=== PATIENT | female | born 1950 | race Caucasian/White ===

== ENCOUNTER → 2017-07-13 | Outpatient (CLI) | payer MEDICARE, BC ==
--- NOTE | 2017-07-15 09:44 | MM ---
Reason for exam: screening (asymptomatic). Last mammogram was performed 1 year ago. History: Patient is postmenopausal. Took progesterone for 2 years beginning at age 55. Physical Findings: A clinical breast exam by your physician is recommended on an annual basis and results should be correlated with mammographic findings. MG 3D Screening Mammo W/Cad Bilateral CC and MLO view(s) were taken. Prior study comparison: July 07, 2016, bilateral MG screening mammo w CAD. July 02, 2015, bilateral MG screening mammo w CAD. The breast tissue is heterogeneously dense. This may lower the sensitivity of mammography. No significant changes when compared with prior studies. ASSESSMENT: Negative, BI-RAD 1 RECOMMENDATION: Routine screening mammogram of both breasts in 1 year.
== END | disposition home or self-care (01) ==
LOC: RADMAMWWP 14:00
PROVIDERS: ATTEND Obstetrics & Gynecology
DX: Z12.31 Encounter for screening mammogram for malignant neoplasm of breast (principal)
CPT/HCPCS: 77063; G0202

== ENCOUNTER → 2017-08-17 | Outpatient (CLI) | payer MEDICARE, BC ==
--- NOTE | 2017-08-17 16:07 | BD ---
EXAMINATION TYPE: MG DEXA axial skeleton. DATE OF EXAM: 08/17/2017 COMPARISON: 2014 CLINICAL HISTORY: disorder of bone Height: 5'5 Weight: 155 FRAX RISK QUESTIONS: Alcohol (3 or more units per day): no Family History (Parent hip fracture): yes Glucocorticoids (More than 3mos): no (Ex: prednisone, prednisolone, methylprednisolone, dexamethasone, and hydrocortisone). History of Fracture in Adulthood: yes Secondary Osteoporosis: 1. Type 1 Diabetes: no 2. Hyperthyroidism: no 3. Menopause before 45: no 4. Malnutrition: no 5. Chronic liver disease: no Rheumatoid Arthritis: no Current Tobacco Use: no RISK FACTORS HISTORY OF: History of Wrist Fracture: left When: age 57 Surgery to Wrist (left): When: age 57 Family History of Osteoporosis: Postmenopausal woman: MEDICATIONS: Thyroid Medications: Which medication: Levothyroxine How Lon years Osteoporosis Medications: Which medication: Evista How Lon years Additional Medications: gerd, Additional History: EXAM MEASUREMENTS: Bone mineral densitometry was performed using the SLID System. Bone mineral density as measured about the Lumbar spine is: ----- L1-L4(G/cm2): 1.074 T Score Values are as follows: ----- L2: -2.1 ----- L3: 0.6 ----- L4: 0.3 ----- L1-L4:-0.9 Bone mineral density has: Increased 11.3% since study of: 07/04/2015 Bone mineral density about the R hip (g/cm2): 0.783 Bone mineral density about the L hip (g/cm2): 0.753 T Score values are as follows: -----R Neck: -1.8 -----L Neck: -2.1 -----R Total: -1.8 -----L Total: -1.7 Bone mineral density has: Decreased -1.6% since study of: 07/04/2015 IMPRESSION: Osteopenia (T Score between -2.5 and -1) as noted by T score values:L2, Kenny Hips There is slightly increased risk of fracture and the patient may be considered for treatment. Re-Screen 2-5 years. NOTE: T-SCORE=SD OF THE YOUNG ADULT MEAN.
== END | disposition home or self-care (01) ==
LOC: RADBDWWP 15:36
PROVIDERS: ATTEND Internal Medicine
DX: M85.89 Other specified disorders of bone density and structure, multiple sites (principal)
CPT/HCPCS: 77080

== ENCOUNTER 2018-06-05 19:20 | Observation (INO) | payer MEDICARE, BC ==
[2018-06-05] MEDS ORDERED: ASPIRIN 81 MG PO STA (19:45)
[2018-06-05 19:55] LABS: Basophils % (A) 1 %; Eosinophils # (A) 0.1 k/uL (0-0.7); Eosinophils % (A) 2 %; HCT 43.9 % (34.0-46.0); HGB 14.1 gm/dL (11.4-16.0); Lymphocytes # (A) 1.6 k/uL (1.0-4.8); Lymphocytes % (A) 25 %; MCH 29.3 pg (25.0-35.0); MCV 91.7 fL (80.0-100.0); Mean Platelet Volume 6.6; Monocytes # (A) 0.4 k/uL (0-1.0); Monocytes % (A) 6 %; Neutrophils % (A) 64 %; Platelet Count 247 k/uL (150-450); RBC 4.79 m/uL (3.80-5.40); RDW 13.1 % (11.5-15.5); WBC 6.3 k/uL (3.8-10.6)
[2018-06-05 20:04] LABS: Albumin 4.4 g/dL (3.5-5.0); Calcium 9.7 mg/dL (8.4-10.2); Magnesium 2.2 mg/dL (1.6-2.3); Potassium 4.4 mmol/L (3.5-5.1); Total Bilirubin 0.6 mg/dL (0.2-1.3); Total Protein 7.3 g/dL (6.3-8.2)
--- NOTE | 2018-06-05 20:04 | XR ---
EXAMINATION TYPE: XR chest 2V DATE OF EXAM: 06/05/2018 COMPARISON: 06/11/2016 HISTORY: Chest pain TECHNIQUE: Frontal and lateral views of the chest are obtained. FINDINGS: There is no heart failure nor confluent pneumonic infiltrate. There is mild pulmonary hype rinflation. There is minimal pleural thickening at the lung apices. Heart size is normal. Bony thorax is intact. IMPRESSION: No active cardiopulmonary disease. There is probably some COPD. No change.
[2018-06-05 20:06] LABS: Creatine Kinase 158 U/L (30-135)
[2018-06-05 20:19] LABS: D-Dimer 0.43 mg/L FEU (<0.60); INR 0.9 (<1.2); Partial Thromboplastin Time 25.1 sec (22.0-30.0); Prothrombin Time 9.4 sec (9.0-12.0)
[2018-06-05 20:20] LABS: Creatine Kinase MB 2.7 ng/mL (0.0-2.4); Troponin I <0.012 ng/mL (0.000-0.034)
--- NOTE | 2018-06-05 20:24 | ED ---
Chest Pain [facility] - General Chief Complaint: Chest Pain Stated Complaint: chest pain Time Seen by Provider: 06/05/18 19:31 Source: patient Mode of arrival: ambulatory Limitations: no limitations - History of Present Illness Initial Comments: This a 67-year-old female who presents with complaints of episodes of retrosternal burning chest pain started over last 2 days. He states that episodes are intermittent lasting as long as 3 minutes 6-7/10 in severity currently she is pain-free no associated nausea vomiting sweats though she has had some hot flashes. No cough or phlegm production no prior history of heart disease she is nonsmoker but was exposed to secondhand smoke for many years she states. MD Complaint: chest pain - Related Data Home Medications Medication Instructions Recorded Confirmed Ascorbic Acid [Vitamin C] 500 mg PO DAILY 06/05/18 06/05/18 Biotin 1,000mcg 1,000 mcg PO DAILY 06/05/18 06/05/18 Calcium Carbonate/Vitamin D3 1 tab PO DAILY 06/05/18 06/05/18 [Calcium 600-Vit D3 200 Tablet] Cholecalciferol [Vitamin D3] 800 unit PO DAILY 06/05/18 06/05/18 Cyanocobalamin (Vitamin B-12) 1,000 mcg PO DAILY 06/05/18 06/05/18 [Vitamin B-12] Cyclobenzaprine [Flexeril] 2.5 mg PO HS 06/05/18 06/05/18 Glucosamine 1500mg 1,500 mg PO DAILY 06/05/18 06/05/18 Levothyroxine Sodium [Synthroid] 125 mcg PO HS 06/05/18 06/05/18 Magnesium Gluconate [Magonate] 500 mg PO DAILY 06/05/18 06/05/18 [facility]-3 Fatty Acids/Fish Oil [Fish 1 cap PO DAILY 06/05/18 06/05/18 Oil 1,000 mg Softgel] Raloxifene [Evista] 60 mg PO DAILY 06/05/18 06/05/18 Ranitidine HCl [Zantac] 300 mg PO BID 06/05/18 06/05/18 Vitamin B Complex 1 cap PO DAILY 06/05/18 06/05/18 metroNIDAZOLE 0.75% CREAM 1 applic TOPICAL BID 06/05/18 06/05/18 [Metrocream] Allergies Allergy/AdvReac Type Severity Reaction Status Date / Time ceftriaxone [From Rocephin] Allergy Rash/Hives Verified 06/05/18 19:45 cephalexin [From Keflex] Allergy Rash/Hives Verified 06/05/18 19:45 levofloxacin Allergy Rash/Hives Verified 06/05/18 19:45 Sulfa (Sulfonamide Allergy Rash/Hives Verified 06/05/18 19:45 Antibiotics) Review of Systems ROS Statement: Those systems with pertinent positive or pertinent negative responses have been documented in the HPI. ROS Other: All systems not noted in ROS Statement are negative. EKG Findings - EKG Results: EKG: interpreted by MYLES CONRAD, sinus rhythm, normal axis, normal QRS, normal ST/ T, no acute changes (Normal sinus rhythm a 68. Interval 126 QRS duration 82 QT since QTC 386/410 this is a normal-appearing EKG) Past Medical History Past Medical History: GERD/Reflux, Thyroid Disorder Additional Past Medical History / Comment(s): Chrons History of Any Multi-Drug Resistant Organisms: None Reported Past Surgical History: Tonsillectomy Additional Past Surgical History / Comment(s): illiestomy, wrist surgery Past Psychological History: No Psychological Hx Reported Smoking Status: Never smoker Past Alcohol Use History: None Reported Past Drug Use History: None Reported General Exam - General Exam Comments Initial Comments: This is a well-developed well-nourished awake alert oriented 3 female Limitations: no limitations General appearance: alert, in no apparent distress Head exam: Present: atraumatic, normocephalic, normal inspection Eye exam: Present: normal appearance, PERRL, EOMI. Absent: scleral icterus, conjunctival injection, periorbital swelling ENT exam: Present: normal exam, mucous membranes moist Neck exam: Present: normal inspection. Absent: tenderness, meningismus, lymphadenopathy Respiratory exam: Present: normal lung sounds bilaterally. Absent: respiratory distress, wheezes, rales, rhonchi, stridor Cardiovascular Exam: Present: regular rate, normal rhythm, normal heart sounds. Absent: systolic murmur, diastolic murmur, rubs, gallop, clicks GI/Abdominal exam: Present: soft, normal bowel sounds. Absent: distended, tenderness, guarding, rebound, rigid Extremities exam: Present: normal inspection, full ROM, normal capillary refill. Absent: tenderness, pedal edema, joint swelling, calf tenderness Back exam: Present: normal inspection Neurological exam: Present: alert, oriented X3, CN II-XII intact Psychiatric exam: Present: normal affect, normal mood Skin exam: Present: warm, dry, intact, normal color. Absent: rash Course Vital Signs 06/05/18 06/05/18 19:27 20:13 Temperature 99 F Pulse Rate 70 71 Respiratory 18 18 Rate Blood Pressure 184/84 148/70 O2 Sat by Pulse 97 98 Oximetry - Reevaluation(s) Reevaluation #1: 06/05/18 22:11 Lesions had no further chest pain but on further questioning she states is actually going on for about a week she's had at least 10 episodes. Chest Pain MDM - MDM I did discuss findings with the patient and her family. Also with Dr. Gonzalez. The patient will be admitted for evaluation by cardiology. Presentation is consistent with new onset angina Critical Care Time Critical Care Time: Yes Critical Care Time: 31 minutes of critical care time which includes initial presentation with history physical labs x-rays reevaluation the patient discussed with the admitting physician admission orders. Documentation the above Disposition Clinical Impression: Unstable angina pectoris, Chest pain Disposition: ADMITTED IP TO [facility] Condition: Stable Referrals: Nena Gonzalez MD [Primary Care Provider] - 1-2 days
[2018-06-05] MEDS ORDERED: NITROGLYCERIN SL TABS 0.4 MG TAB SUBLINGUAL PRN (22:13)
[2018-06-05] MEDS ORDERED: HEPARIN SODIUM,PORCINE 5,000 UNIT/ML 1 ML VIAL IV ONE (22:13)
[2018-06-05] MEDS ORDERED: HEPARIN SOD,PORK IN 0.45% NACL 25,000 UNIT in 0.45% NACL 1 500ML.BAG IV SCH (22:15)
[2018-06-06] MEDS: NITROGLYCERIN OINT 1 INCH/GM PACKET TOPICAL SCH ×2 (00:45→07:31)
[2018-06-06 01:59] VITALS: BMI 25.6
[2018-06-06 02:01] VITALS: RESP 16
[2018-06-06 04:35] LABS: Creatine Kinase 115 U/L (30-135)
[2018-06-06 04:48] LABS: Creatine Kinase MB 2.4 ng/mL (0.0-2.4); Troponin I <0.012 ng/mL (0.000-0.034)
[2018-06-06] MEDS ORDERED: ACETAMINOPHEN TAB 325 MG TAB PO PRN (07:32)
[2018-06-06 08:25] LABS: Cholesterol 155 mg/dL (<200); HDL Cholesterol 70 mg/dL (40-60); LDL Cholesterol,Calculated 74 mg/dL (0-99); Triglycerides 55 mg/dL (<150)
[2018-06-06 08:28] LABS: Creatine Kinase 96 U/L (30-135)
[2018-06-06 08:42] LABS: Creatine Kinase MB 1.9 ng/mL (0.0-2.4); Troponin I <0.012 ng/mL (0.000-0.034)
[2018-06-06] MEDS ORDERED: CHOLECALCIFEROL 400 UNIT TAB PO SCH (09:00)
[2018-06-06] MEDS ORDERED: NON-FORMULARY DRUG (Omega-3 Fatty Acids/Fish Oil [Fish Oil 1,000 Mg Softgel] 1 CAP) PO SCH (09:00)
[2018-06-06] MEDS ORDERED: BIOTIN 1000 MCG PO SCH (09:00)
[2018-06-06] MEDS ORDERED: NON-FORMULARY DRUG (Cyanocobalamin (Vitamin B-12) [Vitamin B-12] 1,000 MCG) PO SCH (09:00)
[2018-06-06] MEDS ORDERED: MAGNESIUM OXIDE 400 MG TAB PO SCH (09:00)
[2018-06-06] MEDS ORDERED: ASCORBIC ACID 500 MG TAB PO SCH (09:00)
[2018-06-06] MEDS ORDERED: NON-FORMULARY DRUG (Calcium Carbonate/Vitamin D3 [Calcium 600-Vit D3 200 Tablet] 1 TAB) PO SCH (09:00)
[2018-06-06] MEDS ORDERED: ATORVASTATIN 80 MG TAB PO SCH (09:00)
[2018-06-06] MEDS ORDERED: GLUCOSAMINE 1500 MG PO SCH (09:00)
[2018-06-06] MEDS ORDERED: NON-FORMULARY DRUG (Vitamin B Complex [Vitamin B Complex] 1 CAP) PO SCH (09:00)
[2018-06-06] MEDS ORDERED: ASPIRIN 325 MG TAB PO SCH (09:00)
[2018-06-06] MEDS ORDERED: RALOXIFENE 60 MG TAB PO SCH (09:00)
[2018-06-06] MEDS ORDERED: FAMOTIDINE 20 MG TAB PO SCH (09:00)
[2018-06-06 09:41] LABS: Basophils % (A) 1 %; Eosinophils # (A) 0.2 k/uL (0-0.7); Eosinophils % (A) 3 %; HCT 40.1 % (34.0-46.0); HGB 12.8 gm/dL (11.4-16.0); Lymphocytes # (A) 1.2 k/uL (1.0-4.8); Lymphocytes % (A) 23 %; MCH 29.4 pg (25.0-35.0); Mean Platelet Volume 6.6; Monocytes # (A) 0.4 k/uL (0-1.0); Monocytes % (A) 8 %; Neutrophils # (A) 3.3 k/uL (1.3-7.7); Neutrophils % (A) 62 %; Platelet Count 220 k/uL (150-450); RBC 4.36 m/uL (3.80-5.40); WBC 5.3 k/uL (3.8-10.6)
--- NOTE | 2018-06-06 10:17 | P.HPIM ---
History of Present Illness H&P Date: 06/06/18 Chief Complaint: chest pain This is a 67-year-old female patient presents to the emergency room complaints of chest pain that has been going on for approximately 1 week per patient. Patient states that the pain is intermittent and will last about 3-6 minutes. Patient denies shortness of breath or radiation of pain to neck jaw or shoulder. Patient denies nausea or vomiting with pain. Patient does state she has significant family history of cardiac events including biological sister requiring open heart surgery in her 50s and another sibling with a history of a heart attack. Patient herself has a past medical history of GERD, thyroid disorder and Crohn's. Chest x-ray completed showing no active cardiopulmonary disease. There is probably some COPD. No change. EEG completed showing normal sinus rhythm. Normal EKG. Troponin levels have been negative. D-dimer 0.043. Cardiology services have been consulted. 2-D echo and stress echocardiogram has been ordered. At this time patient denies chest pain or shortness breath. Denies nausea vomiting or diarrhea. Denies any urinary burning or frequency. Review of Systems Please refer to HPI otherwise unremarkable Past Medical History Past Medical History: GERD/Reflux, Thyroid Disorder Additional Past Medical History / Comment(s): Chrons History of Any Multi-Drug Resistant Organisms: None Reported Past Surgical History: Tonsillectomy Additional Past Surgical History / Comment(s): illiestomy, wrist surgery Past Psychological History: No Psychological Hx Reported Smoking Status: Never smoker Past Alcohol Use History: None Reported Past Drug Use History: None Reported Medications and Allergies Home Medications Medication Instructions Recorded Confirmed Type Ascorbic Acid [Vitamin C] 500 mg PO DAILY 06/05/18 06/05/18 History Biotin 1,000mcg 1,000 mcg PO DAILY 06/05/18 06/05/18 History Calcium Carbonate/Vitamin D3 1 tab PO DAILY 06/05/18 06/05/18 History [Calcium 600-Vit D3 200 Tablet] Cholecalciferol [Vitamin D3] 800 unit PO DAILY 06/05/18 06/05/18 History Cyanocobalamin (Vitamin B-12) 1,000 mcg PO DAILY 06/05/18 06/05/18 History [Vitamin B-12] Cyclobenzaprine [Flexeril] 2.5 mg PO HS 06/05/18 06/05/18 History Glucosamine 1500mg 1,500 mg PO DAILY 06/05/18 06/05/18 History Levothyroxine Sodium [Synthroid] 125 mcg PO HS 06/05/18 06/05/18 History Magnesium Gluconate [Magonate] 500 mg PO DAILY 06/05/18 06/05/18 History [place]-3 Fatty Acids/Fish Oil [Fish 1 cap PO DAILY 06/05/18 06/05/18 History Oil 1,000 mg Softgel] Raloxifene [Evista] 60 mg PO DAILY 06/05/18 06/05/18 History Ranitidine HCl [Zantac] 300 mg PO BID 06/05/18 06/05/18 History Vitamin B Complex 1 cap PO DAILY 06/05/18 06/05/18 History metroNIDAZOLE 0.75% CREAM 1 applic TOPICAL BID 06/05/18 06/05/18 History [Metrocream] Allergies Allergy/AdvReac Type Severity Reaction Status Date / Time ceftriaxone [From Rocephin] Allergy Rash/Hives Verified 06/05/18 19:45 cephalexin [From Keflex] Allergy Rash/Hives Verified 06/05/18 19:45 levofloxacin Allergy Rash/Hives Verified 06/05/18 19:45 Sulfa (Sulfonamide Allergy Rash/Hives Verified 06/05/18 19:45 Antibiotics) Physical Exam Vitals: Vital Signs Temp Pulse Pulse Resp BP BP BP 06/06/18 08:00 97.7 F 60 16 94/53 06/06/18 04:36 16 06/06/18 04:08 98.1 F 63 16 114/63 06/06/18 01:59 98.1 F 69 16 163/94 06/06/18 00:47 97.8 F 62 18 141/72 06/05/18 23:53 72 18 149/81 06/05/18 22:13 98.5 F 73 16 157/82 06/05/18 20:13 71 18 148/70 06/05/18 19:27 99 F 70 18 184/84 Pulse Ox 06/06/18 08:00 93 L 06/06/18 04:36 06/06/18 04:08 94 L 06/06/18 01:59 100 06/06/18 00:47 95 06/05/18 23:53 97 06/05/18 22:13 95 06/05/18 20:13 98 06/05/18 19:27 97 Intake and Output 06/05/18 06/06/18 06/06/18 22:59 06:59 14:59 Other: Voiding Method Toilet Weight 69.853 kg 71.4 kg Head normocephalic Neck supple Lungs clear to auscultation bilaterally no wheezing or crackles Heart regular rate and rhythm S1-S2, no rub or gallop Abdomen is soft nontender nondistended positive bowel sounds no hepatosplenomegaly Extremities no edema Neuro alert and orientated to 3 Results CBC & Chem 7: 06/06/18 09:21 06/05/18 19:40 Labs: Abnormal Lab Results - Last 24 Hours (Table) 06/05/18 06/05/18 06/06/18 Range/Units 19:40 19:40 03:32 APTT 55.6 H (22.0-30.0) sec BUN 29 H (7-17) mg/dL Creatinine 1.07 H (0.52-1.04) mg/dL Total Creatine Kinase 158 H (30-135) U/L CK-MB (CK-2) 2.7 H (0.0-2.4) ng/mL HDL Cholesterol (40-60) mg/dL 06/06/18 Range/Units 07:29 APTT (22.0-30.0) sec BUN (7-17) mg/dL Creatinine (0.52-1.04) mg/dL Total Creatine Kinase (30-135) U/L CK-MB (CK-2) (0.0-2.4) ng/mL HDL Cholesterol 70 H (40-60) mg/dL Thrombosis Risk Factor Assmnt - Choose All That Apply Each Risk Factor Represents 2 Points: Age 61-74 years Thrombosis Risk Factor Assessment Total Risk Factor Score: 2 Thrombosis Risk Factor Assessment Level: Low Risk Assessment and Plan Assessment: 1. Chest pain. Troponin levels have been negative. EKG showing normal sinus rhythm. D-dimer 0.43. Chest x-ray completed showing no active cardiopulmonary disease. There is probably some COPD. No change. Cardiology services consulted. 2-D echo and stress echocardiogram has been ordered. 2. History of GERD 3. History of hypothyroidism. Continue Synthroid 4. History of Crohn's. DVT prophylaxis Pepcid Time with Patient: Greater than 30 (Greater than 60% of the total time spent in counseling and coordination of care. I performed an examination of the patient and discussed their management with the Nurse Practitioner. I have reviewed the Nurse Practitioner's notes and agree with the documented findings and plan of care)
[2018-06-06 10:29] LABS: ALT 30 U/L (9-52); AST 28 U/L (14-36); Albumin 3.6 g/dL (3.5-5.0); Alkaline Phosphatase 65 U/L (38-126); Anion Gap 6 mmol/L; Blood Urea Nitrogen 20 mg/dL (7-17); Calcium 9.1 mg/dL (8.4-10.2); Carbon Dioxide 26 mmol/L (22-30); Chloride 106 mmol/L (98-107); Glucose 88 mg/dL (74-99); Potassium 4.4 mmol/L (3.5-5.1); Sodium 138 mmol/L (137-145); Total Bilirubin 1.3 mg/dL (0.2-1.3); Total Protein 6.1 g/dL (6.3-8.2)
--- NOTE | 2018-06-06 11:24 | ECHOF ---
Referral Reason:cp MEASUREMENTS -------- HEIGHT: 165.1 cm WEIGHT: 71.2 kg BP: IVSd: 0.9 cm (0.6 - 1.1) LVIDd: 3.5 cm (3.9 - 5.3) LVPWd: 1.1 cm (0.6 - 1.1) IVSs: 1.2 cm LVIDs: 2.7 cm LVPWs: 1.0 cm LAESV Index (A-L): 17.73 ml/m Ao Diam: 2.9 cm (2.0 - 3.7) AV Cusp: 1.6 cm (1.5 - 2.6) LA Diam: 3.0 cm (2.7 - 3.8) MV EXCURSION: 14.924 mm (> 18.000) MV EF SLOPE: 111 mm/s (70 - 150) EPSS: 0.9 cm MV E Anant: 0.69 m/s MV DecT: 248 ms MV A Anant: 0.71 m/s MV E/A Ratio: 0.96 RAP: 5.00 mmHg RVSP: 21.33 mmHg FINDINGS -------- Sinus rhythm. This was a technically good study. LV size, wall thickness and systolic function are normal, with an EF greater than 55%. The left rafita tricular size is normal. The right ventricle is normal in size. The left atrial size is normal. The right atrial size is normal. The aortic valve is trileaflet, and appears structurally normal. No aortic stenosis or regurgitation. Mild mitral regurgitation is present. Mild tricuspid regurgitation present. There is no evidence of pulmonary hypertension. The right v entricular systolic pressure, as measured by Doppler, is 21.33mmHg. There is no pulmonic regurgitation present. The aortic root size is normal. There is no pericardial effusion. CONCLUSIONS -------- 1. LV size, wall thickness and systolic function are normal, with an EF greater than 55%. 2. The left ventricular size is normal. 3. The right ventricle is normal in size. 4. The left atrial size is normal. 5. The right atrial size is normal. 6. The aortic valve is trileaflet, and appears structurally normal. No aortic stenosis or regurgitati on. 7. Mild mitral regurgitation is present. 8. Mild tricuspid regurgitation present. 9. There is no evidence of pulmonary hypertension. 10. The right ventricular systolic pressure, as measured by Doppler, is 21.33mmHg. 11. There is no pulmonic regurgitation present. 12. The aortic root size is normal. 13. There is no pericardial effusion. SENIOR BENEFITS MANAGER: Yoselyn Gan RDCS
[2018-06-06 12:11] VITALS: BP 120/76; PULSE 64; TEMP 98.4
--- NOTE | 2018-06-06 12:12 | P.CRDCN ---
History of Present Illness History of present illness: Mrs. Eisenberg is a pleasant 67-year-old female past medical history significant for gastroesophageal reflux disease and hypothyroid. She denies history of coronary artery disease, hypertension or dyslipidemia. We have been asked to see her in consultation for chest pain. She states she has been having a burning sensation in mid-sternal region with radiation through to the back associated with mild shortness of breath and feeling light headed at times. These symptoms have been intermittent for the last week with no specific aggravating or alleviating factors. She has been taking Tums with no relief. She denies palpitations, nausea, vomiting, diaphoresis, cough, PND or orhopnea. EKG reveals sinus mechanism with no acute ST or T-wave abnormalities. Telemetry tracings have been unremarkable. Chest xray is negative for an acute cardiopulmonary process. Laboratory data reviewed, hemoglobin 12.8, platelets 220, d-dimer 0.43, sodium 138, potassium 4.4, magnesium 2.2, creatinine 0.75, cardiac enzymes negative 3 , LDL 74 and HDL 70. She takes no daily cardiac medications. There is no old diagnostic data to review. Review of Systems At the time of my exam: CONSTITUTIONAL: Denies fever. Denies chills. EYES: Denies blurred vision. Denies vision changes. Denies eye pain. EARS, NOSE, MOUTH & THROAT: Denies headache. Denies sore throat. Denies ear pain. CARDIOVASCULAR: Denies chest pain. Denies shortness of breath. Denies orthopnea. Denies PND. Denies palpitations. RESPIRATORY: Denies cough. GASTROINTESTINAL: Denies abdominal pain. Denies diarrhea. Denies constipation. Denies nausea. Denies vomiting. MUSCULOSKELETAL: Denies myalgias. INTEGUMENTARY: Denies pruitis. Denies rash. NEUROLOGIC: Denies numbness. Denies tingling. Denies weakness. PSYCHIATRIC: Denies anxiety. Denies depression. ENDOCRINE: Denies fatigue. Denies weight change. Denies polydipsia. Denies polyurina. GENITOURINARY: Denies burning, hematuria or urgency with micturation. HEMATOLOGIC: Denies history of anemia. Denies bleeding. Past Medical History Past Medical History: GERD/Reflux, Thyroid Disorder Additional Past Medical History / Comment(s): Chrons History of Any Multi-Drug Resistant Organisms: None Reported Past Surgical History: Tonsillectomy Additional Past Surgical History / Comment(s): illiestomy, wrist surgery Past Psychological History: No Psychological Hx Reported Smoking Status: Never smoker Past Alcohol Use History: None Reported Past Drug Use History: None Reported Medications and Allergies Home Medications Medication Instructions Recorded Confirmed Type Ascorbic Acid [Vitamin C] 500 mg PO DAILY 06/05/18 06/05/18 History Biotin 1,000mcg 1,000 mcg PO DAILY 06/05/18 06/05/18 History Calcium Carbonate/Vitamin D3 1 tab PO DAILY 06/05/18 06/05/18 History [Calcium 600-Vit D3 200 Tablet] Cholecalciferol [Vitamin D3] 800 unit PO DAILY 06/05/18 06/05/18 History Cyanocobalamin (Vitamin B-12) 1,000 mcg PO DAILY 06/05/18 06/05/18 History [Vitamin B-12] Cyclobenzaprine [Flexeril] 2.5 mg PO HS 06/05/18 06/05/18 History Glucosamine 1500mg 1,500 mg PO DAILY 06/05/18 06/05/18 History Levothyroxine Sodium [Synthroid] 125 mcg PO HS 06/05/18 06/05/18 History Magnesium Gluconate [Magonate] 500 mg PO DAILY 06/05/18 06/05/18 History [place]-3 Fatty Acids/Fish Oil [Fish 1 cap PO DAILY 06/05/18 06/05/18 History Oil 1,000 mg Softgel] Raloxifene [Evista] 60 mg PO DAILY 06/05/18 06/05/18 History Ranitidine HCl [Zantac] 300 mg PO BID 06/05/18 06/05/18 History Vitamin B Complex 1 cap PO DAILY 06/05/18 06/05/18 History metroNIDAZOLE 0.75% CREAM 1 applic TOPICAL BID 06/05/18 06/05/18 History [Metrocream] Allergies Allergy/AdvReac Type Severity Reaction Status Date / Time ceftriaxone [From Rocephin] Allergy Rash/Hives Verified 06/05/18 19:45 cephalexin [From Keflex] Allergy Rash/Hives Verified 06/05/18 19:45 levofloxacin Allergy Rash/Hives Verified 06/05/18 19:45 Sulfa (Sulfonamide Allergy Rash/Hives Verified 06/05/18 19:45 Antibiotics) Physical Exam Vitals: Vital Signs Temp Pulse Pulse Resp BP BP BP 06/06/18 08:00 97.7 F 60 16 94/53 06/06/18 04:36 16 06/06/18 04:08 98.1 F 63 16 114/63 06/06/18 01:59 98.1 F 69 16 163/94 06/06/18 00:47 97.8 F 62 18 141/72 06/05/18 23:53 72 18 149/81 06/05/18 22:13 98.5 F 73 16 157/82 06/05/18 20:13 71 18 148/70 06/05/18 19:27 99 F 70 18 184/84 Pulse Ox 06/06/18 08:00 93 L 06/06/18 04:36 06/06/18 04:08 94 L 06/06/18 01:59 100 06/06/18 00:47 95 06/05/18 23:53 97 06/05/18 22:13 95 06/05/18 20:13 98 06/05/18 19:27 97 Intake and Output 06/05/18 06/06/18 06/06/18 22:59 06:59 14:59 Other: Voiding Method Toilet Weight 69.853 kg 71.4 kg Blood pressure 94/53 heart rate 68 afebrile maintaining oxygen saturation on room air GENERAL: This is a 67-year-old female in no apparent distress at the time of my examination. HEENT: Head is atraumatic, normocephalic. Pupils are equal, round. Sclerae anicteric. Conjunctivae are clear. Mucous membranes of the mouth are moist. Neck is supple. There is no jugular venous distention. No carotid bruit is heard. LUNGS: Clear to auscultation no wheezes, rales or rhonchi. No chest wall tenderness is noted on palpation or with deep breathing. HEART: Regular rate and rhythm without murmurs, rubs or gallops. S1 and S2 heard. ABDOMEN: Soft, nontender. Bowel sounds are heard. No organomegaly noted. EXTREMITIES: No evidence of peripheral edema and no calf tenderness noted. VASCULAR: Radial and dorsalis pedis pulses palpated, no evidence of clubbing. NEUROLOGIC: Patient is awake, alert and oriented x3. Results 06/06/18 09:21 06/06/18 09:21 Cardiac Enzymes 06/05/18 06/05/18 06/06/18 Range/Units 19:40 19:40 03:32 AST 28 (14-36) U/L CK-MB (CK-2) 2.7 H 2.4 (0.0-2.4) ng/mL Troponin I <0.012 <0.012 (0.000-0.034) ng/mL 06/06/18 Range/Units 07:29 AST (14-36) U/L CK-MB (CK-2) 1.9 (0.0-2.4) ng/mL Troponin I <0.012 (0.000-0.034) ng/mL Coagulation 06/05/18 06/06/18 Range/Units 19:40 03:32 PT 9.4 (9.0-12.0) sec APTT 25.1 55.6 H (22.0-30.0) sec Lipids 06/06/18 Range/Units 07:29 Triglycerides 55 (<150) mg/dL Cholesterol 155 (<200) mg/dL HDL Cholesterol 70 H (40-60) mg/dL CBC 06/05/18 Range/Units 19:40 WBC 6.3 (3.8-10.6) k/uL RBC 4.79 (3.80-5.40) m/uL Hgb 14.1 (11.4-16.0) gm/dL Hct 43.9 (34.0-46.0) % Plt Count 247 (150-450) k/uL Comprehensive Metabolic Panel 06/05/18 Range/Units 19:40 Sodium 140 (137-145) mmol/L Potassium 4.4 (3.5-5.1) mmol/L Chloride 104 (98-107) mmol/L Carbon Dioxide 25 (22-30) mmol/L BUN 29 H (7-17) mg/dL Creatinine 1.07 H (0.52-1.04) mg/dL Glucose 85 (74-99) mg/dL Calcium 9.7 (8.4-10.2) mg/dL AST 28 (14-36) U/L ALT 27 (9-52) U/L Alkaline Phosphatase 90 (38-126) U/L Total Protein 7.3 (6.3-8.2) g/dL Albumin 4.4 (3.5-5.0) g/dL Current Medications Generic Name Dose Route Start Last Admin Trade Name Freq PRN Reason Stop Dose Admin Acetaminophen 650 mg 06/06/18 07:32 06/06/18 07:43 Tylenol Tab PO 650 mg Q6HR PRN Administration Fever and/ or Pain Ascorbic Acid 500 mg 06/06/18 09:00 Vitamin C PO DAILY MAURISIO Aspirin 325 mg 06/06/18 09:00 Aspirin PO DAILY [facility] Cholecalciferol 800 unit 06/06/18 09:00 Vitamin D3 PO DAILY MAURISIO Famotidine 40 mg 06/06/18 09:00 Pepcid PO BID MAURISIO Levothyroxine Sodium 125 mcg 06/06/18 21:00 Synthroid PO HS [facility]ISIO Magnesium Oxide 400 mg 06/06/18 09:00 Mag-Ox PO DAILY [facility] Metronidazole 1 applic 06/06/18 09:00 Metrocream TOPICAL BID MAURISIO Nitroglycerin 0.4 mg 06/05/18 22:13 Nitrostat SUBLINGUAL Q5M PRN Chest Pain Raloxifene HCl 60 mg 06/06/18 09:00 Evista PO DAILY [facility] Intake and Output 06/05/18 06/06/18 06/06/18 22:59 06:59 14:59 Other: Voiding Method Toilet Weight 69.853 kg 71.4 kg 06/05/18 19:40 06/05/18 19:40 Assessment and Plan Assessment: ASSESSMENT Chest pain, atypical. An acute coronary event has been ruled out with no EKG evidence of ischemia and negative cardiac enzymes. Hypothyroid Family history of premature cardiac disease PLAN An acute coronary event has been ruled out, discontinue heparin infusion. Obtain 2D echocardiogram and doppler study to assess cardiac structure and function. Perform exercise stress echocardiogram to assess for stress induced ischemic changes. If stress test is normal she is stable from a cardiac perspective. Follow up with Dr. Enriquez in 2-3 weeks. Thank you kindly for this consultation. Nurse Practitioner note has been reviewed, I agree with a documented findings and plan of care. Patient was seen and examined.
--- NOTE | 2018-06-06 14:06 | P.DS ---
Providers Date of admission: 06/05/18 22:12 Expected date of discharge: 06/06/18 Attending physician: Nena Gonzalez Consults: 06/05/18 22:17 Consult Physician Urgent Consulting Provider: Ascencion Enriquez Consult Reason/Comments: Chest pain Do you want consulting provider notified?: Yes Primary care physician: Nena Lisa [facility] Course: Discharge diagnosis 1. Chest pain. Troponin levels have been negative. EKG showing normal sinus rhythm. D-dimer 0.43. Chest x-ray completed showing no active cardiopulmonary disease. There is probably some COPD. No change. Cardiology services consulted. 2-D echo and stress echocardiogram has been ordered. 2-D echo completed showing an EF greater than 55%. Discussed case with cardiology EQUIPMENT WORKER. Patient has been cleared for discharge. Per cardiology stress test was normal. No change to medication 2. History of GERD 3. History of hypothyroidism. Continue Synthroid 4. History of Crohn's. Hospital Course This is a 67-year-old female patient presents to the emergency room complaints of chest pain that has been going on for approximately 1 week per patient. Patient states that the pain is intermittent and will last about 3-6 minutes. Patient denies shortness of breath or radiation of pain to neck jaw or shoulder. Patient denies nausea or vomiting with pain. Patient does state she has significant family history of cardiac events including biological sister requiring open heart surgery in her 50s and another sibling with a history of a heart attack. Patient herself has a past medical history of GERD, thyroid disorder and Crohn's. Chest x-ray completed showing no active cardiopulmonary disease. There is probably some COPD. No change. EEG completed showing normal sinus rhythm. Normal EKG. Troponin levels have been negative. D-dimer 0.043. Cardiology services have been consulted. 2-D echo and stress echocardiogram has been ordered. At this time patient denies chest pain or shortness breath. Denies nausea vomiting or diarrhea. Denies any urinary burning or frequency. On 06/06/2018 patient is alert and oriented 3. Stress test and 2-D echo completed discussed case with cardiology EQUIPMENT WORKER. Patient has been cleared for discharge. Patient to follow-up with primary care provider outpatient. Patient will be started on Protonix 40 mg daily. At this time patient denies chest pain or shortness breath. Denies nausea vomiting or diarrhea. I performed an examination of the patient and discussed their management with the Nurse Practitioner. I have reviewed the Nurse Practitioner's notes and agree with the documented findings and plan of care Patient Condition at Discharge: Stable Plan - Discharge Summary New Discharge Prescriptions: Continue [place]-3 Fatty Acids/Fish Oil [Fish Oil 1,000 mg Softgel] 1 cap PO DAILY Cholecalciferol [Vitamin D3] 800 unit PO DAILY Ascorbic Acid [Vitamin C] 500 mg PO DAILY Magnesium Gluconate [Magonate] 500 mg PO DAILY Cyanocobalamin (Vitamin B-12) [Vitamin B-12] 1,000 mcg PO DAILY Biotin 1,000mcg 1,000 mcg PO DAILY Vitamin B Complex 1 cap PO DAILY Glucosamine 1500mg 1,500 mg PO DAILY metroNIDAZOLE 0.75% CREAM [Metrocream] 1 applic TOPICAL BID Ranitidine HCl [Zantac] 300 mg PO BID Levothyroxine Sodium [Synthroid] 125 mcg PO HS Cyclobenzaprine [Flexeril] 2.5 mg PO HS Raloxifene [Evista] 60 mg PO DAILY Calcium Carbonate/Vitamin D3 [Calcium 600-Vit D3 200 Tablet] 1 tab PO DAILY Discharge Medication List Ascorbic Acid [Vitamin C] 500 mg PO DAILY 06/05/18 [History] Biotin 1,000mcg 1,000 mcg PO DAILY 06/05/18 [History] Calcium Carbonate/Vitamin D3 [Calcium 600-Vit D3 200 Tablet] 1 tab PO DAILY 07/13 [History] Cholecalciferol [Vitamin D3] 800 unit PO DAILY 06/05/18 [History] Cyanocobalamin (Vitamin B-12) [Vitamin B-12] 1,000 mcg PO DAILY 06/05/18 [ History] Cyclobenzaprine [Flexeril] 2.5 mg PO HS 06/05/18 [History] Glucosamine 1500mg 1,500 mg PO DAILY 06/05/18 [History] Levothyroxine Sodium [Synthroid] 125 mcg PO HS 06/05/18 [History] Magnesium Gluconate [Magonate] 500 mg PO DAILY 06/05/18 [History] [place]-3 Fatty Acids/Fish Oil [Fish Oil 1,000 mg Softgel] 1 cap PO DAILY [History] Raloxifene [Evista] 60 mg PO DAILY 06/05/18 [History] Ranitidine HCl [Zantac] 300 mg PO BID 06/05/18 [History] Vitamin B Complex 1 cap PO DAILY 06/05/18 [History] metroNIDAZOLE 0.75% CREAM [Metrocream] 1 applic TOPICAL BID 06/05/18 [History] Follow up Appointment(s)/Referral(s): Nena Gonzalez MD [Primary Care Provider] - 1-2 days Activity/Diet/Wound Care/Special Instructions: Diet regular Activity as tolerated Discharge Disposition: HOME SELF-CARE
[2018-06-06] MEDS ORDERED: LEVOTHYROXINE 125 MCG TAB PO SCH (21:00)
--- NOTE | 2018-06-07 16:22 | ECHOS ---
STRESS ECHOCARDIOGRAM INDICATIONS: Chest pain. BASELINE HEART RATE: 90 BASELINE BLOOD PRESSURE: 143/83 MAXIMUM HEART RATE: 138 MAXIMUM BLOOD PRESSURE: 198/76 85% MPHR: 131 100% MPHR: 154 METS: 11.1 MAXIMUM STAGE REACHED: III TOTAL EXERCISE TIME: 9:46 CLINICAL INFORMATION: The patient was exercised for a total period of 10 minutes. Peak heart rate of 138 was achieved. Maximum blood pressure of 153/89 mmHg was noted. The resting EKG shows normal sinus rhythm with normal TX interval and QRS duration and normal ST-T waves. No ST- segment depression suggestive of ischemia was noted. Patient did not complain of any chest pain during the test. The baseline echocardiographic images reveals normal left ventricular chamber size with normal left ventricular systolic function. In the immediate post exercise normal increase in the wall thickness and contractility is noted. FINAL IMPRESSION: This stress echocardiographic study is negative for stress-induced ischemia. EKG portion of the stress test is not suggestive of ischemia. The patient's exercise tolerance is normal. MMODL / IJN: [id number] /
== END 2018-06-06 15:21 | disposition home or self-care (01) ==
LOC: EC 19:20 → 3OBS 22:12
PROVIDERS: ADMIT Internal Medicine; ATTEND Internal Medicine
DX: R07.89 Other chest pain (principal); R23.2 Flushing; K21.9 Gastro-esophageal reflux disease without esophagitis; E03.9 Hypothyroidism, unspecified; K50.90 Crohn's disease, unspecified, without complications; Z77.22 Contact with and (suspected) exposure to environmental tobacco smoke (acute) (chronic); Z79.890 Hormone replacement therapy; Z79.899 Other long term (current) drug therapy; Z88.1 Allergy status to other antibiotic agents; Z88.2 Allergy status to sulfonamides; Z93.2 Ileostomy status; Z82.49 Family history of ischemic heart disease and other diseases of the circulatory system
CPT/HCPCS: 96376 ×2; 96365 ×2; 96366 ×3; 99291 ×2; 93005 ×2; 36415; 93306; 93351; 85379; 83880; 80061; 80053 ×2; 82550 ×2; 82553 ×2; 83735; 84484 ×2; 85025 ×2; 85610; 85730 ×2; 71046; G0378 ×2; J1644 ×2

== ENCOUNTER → 2018-06-21 | Outpatient (CLI) | payer MEDICARE, BC ==
[2018-06-21 11:26] LABS: Blood Urea Nitrogen 19 mg/dL (7-17)
--- NOTE | 2018-06-21 13:39 | CT ---
EXAMINATION TYPE: CT abdomen pelvis w con DATE OF EXAM: 06/21/2018 COMPARISON: 11/04/2010 HISTORY: 67-year-old female Intermittent left upper quadrant pain, generalized abdominal pain TECHNIQUE: Contiguous axial scanning of the abdomen and pelvis following administration of 100 ml Iso edlmar 300 IV contrast. Delayed images through the kidneys and coronal/sagittal reconstructions perform ed. CT DLP: 634.7 mGycm Automated exposure control for dose reduction was used. FINDINGS: The heart is normal size without pericardial effusion. Lung bases clear without pleural effusion. Tiny hiatal hernia. 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 No focal liver lesion or biliary ductal dilatation. Portal venous system is patent. Adrenal glands, left kidney, spleen, and pancreas appear within normal limits. Tiny subcentimeter cortical based hypodensity anterior right kidney, axial image 21, too small for ac curate CT characterization, likely tiny cyst and was seen previously in 2010. Patient is status post colectomy with right lower quadrant ileostomy. Some surgical material is prese nt in the mesentery in the midabdomen and a dropped clip along the anterior hepatic dome incidentally noted. No mesenteric or retroperitoneal lymphadenopathy seen. Tiny fatty umbilical hernia. Bladder nondistended. Multiple surgical clips also seen within the pelvis. Soft tissue breast along t he posterior aspect of the lower pelvis suspected to represent the uterus. A 2.0 cm cystic lesion jus t adjacent on the right likely of ovarian etiology, not clearly seen previously. No abnormal fluid co llection in the pelvis or pelvic lymphadenopathy. Bones: Mild degenerative changes at the hips. Advanced degenerative disc disease L3-L4 and L4-L5 and moderate at L5-S1. Grade 1 retrolisthesis at L3-L4. Moderate to severe left neuroforaminal stenosis a t L5-S1. IMPRESSION: 1. STATUS POST COLECTOMY WITH RIGHT LOWER QUADRANT ILEOSTOMY. 2. SOFT TISSUE PRESSED AGAINST THE POSTERIOR ASPECT OF THE LOWER PELVIS SUSPECTED TO REPRESENT UTERUS . THERE IS A 2.0 CM CYSTIC LESION JUST ADJACENT ON THE RIGHT LIKELY OF OVARIAN ETIOLOGY END NOT CLEAR LY SEEN PREVIOUSLY. RECOMMEND SIX-MONTH FOLLOW-UP ULTRASOUND TO REASSESS AND FURTHER CHARACTERIZE THI S GIVEN THE PATIENT'S AGE AND POSTMENOPAUSAL STATUS. SUBSEQUENT RECOMMENDATIONS CAN BE MADE AT THAT T ROBER.
== END | disposition home or self-care (01) ==
LOC: RADCTMAIN 10:52
PROVIDERS: ATTEND Internal Medicine
DX: R93.5 Abnormal findings on diagnostic imaging of other abdominal regions, including retroperitoneum (principal); R10.84 Generalized abdominal pain; Z93.2 Ileostomy status; Z90.49 Acquired absence of other specified parts of digestive tract
CPT/HCPCS: 82565; 84520; 74177; 36415; Q9967

== ENCOUNTER → 2018-07-19 | Outpatient (CLI) | payer MEDICARE, BC | END | disposition home or self-care (01) | LOC: RADUSWWP 13:19 | PROVIDERS: ATTEND Internal Medicine | DX: Z53.9 Procedure and treatment not carried out, unspecified reason (principal) ==

== ENCOUNTER → 2018-07-19 | Outpatient (CLI) | payer MEDICARE, BC ==
--- NOTE | 2018-07-19 16:10 | US ---
EXAMINATION TYPE: US transvaginal DATE OF EXAM: 07/19/2018 COMPARISON: Previous exam 11/07/2014 CLINICAL HISTORY: R10.[address] showed already known cystic lesion in her rt adnexa, n o symptoms per patient TECHNIQUE: TV. Date of LMP: 15 yrs ago EXAM MEASUREMENTS: Uterus: 6.1 x 2.8 x 2.5 cm Endometrial Stripe: 0.6 cm Right Ovary: not seen due to atrophy and bowel gas Left Ovary: not seen due to atrophy and bowel gas 1. Uterus: Retroverted small in size 2. Endometrium: fluid seen within canal 3. Right Ovary: not seen due to atrophy and bowel gas 4. Left Ovary: not seen due to atrophy and bowel gas 5. Bilateral Adnexa: right cystic area seen 2.4 x 2.0 x 1.8cm is grown slightly in the interval 6. Posterior cul-de-sac: wnl IMPRESSION: Endometrial fluid is present. Cystic area present in the right adnexal region. Consider G YN consult.
--- NOTE | 2018-07-20 12:30 | MM ---
Reason for exam: screening (asymptomatic). Last mammogram was performed 1 year ago. History: Patient is postmenopausal. Took progesterone for 2 years beginning at age 55. Physical Findings: A clinical breast exam by your physician is recommended on an annual basis and results should be correlated with mammographic findings. MG 3D Screening Mammo W/Cad Bilateral CC and MLO view(s) were taken. Prior study comparison: July 13, 2017, bilateral MG 3d screening mammo w/cad. July 07, 2016, bilateral MG screening mammo w CAD. The breast tissue is heterogeneously dense. This may lower the sensitivity of mammography. No suspicious abnormality. No significant changes when compared with prior studies. ASSESSMENT: Negative, BI-RAD 1 RECOMMENDATION: Routine screening mammogram of both breasts in 1 year.
== END ==
LOC: RADMAMWWP 12:57
PROVIDERS: ATTEND Family Medicine
DX: Z12.31 Encounter for screening mammogram for malignant neoplasm of breast (principal); N83.201 Unspecified ovarian cyst, right side
CPT/HCPCS: 76830; 77063; 77067

== ENCOUNTER 2019-01-16 22:02 | Observation (INO) | payer MEDICARE, BC ==
[2019-01-16] MEDS ORDERED: ASPIRIN 81 MG PO STA (22:33)
[2019-01-16] MEDS ORDERED: NITROGLYCERIN OINT 1 INCH/GM PACKET TOPICAL STA (22:33)
--- NOTE | 2019-01-16 22:36 | ED ---
General Adult HPI - General Chief complaint: Chest Pain Stated complaint: chest pain Time Seen by Provider: 01/16/19 22:21 Source: patient, family, RN notes reviewed Mode of arrival: wheelchair Limitations: no limitations - History of Present Illness Initial comments: Patient is a pleasant 68-year-old female presenting to the emergency Department with chest discomfort. Onset of symptoms was around 6:30. Patient had sensation of indigestion in her chest. Discomfort was 5 or 6/10. Discomfort has been waxing and waning. Patient ate and pelvis without any change of symptoms. Symptoms have started to resolve with at this time and discomfort is currently 1/10. No associated dyspnea, nausea, or diaphoresis. Patient did have similar symptoms once years ago that was associated with GERD. No leg pain or leg swelling. No radiation of symptoms. Discomfort is lower sternal region. - Related Data Home Medications Medication Instructions Recorded Confirmed Ascorbic Acid [Vitamin C] 500 mg PO DAILY 06/05/18 01/16/19 Biotin 1,000mcg 1,000 mcg PO DAILY 06/05/18 01/16/19 Calcium Carbonate/Vitamin D3 1 tab PO DAILY 06/05/18 01/16/19 [Calcium 600-Vit D3 200 Tablet] Cholecalciferol [Vitamin D3] 800 unit PO DAILY 06/05/18 01/16/19 Cyanocobalamin (Vitamin B-12) 1,000 mcg PO DAILY 06/05/18 01/16/19 [Vitamin B-12] Glucosamine 1500mg 1,500 mg PO DAILY 06/05/18 01/16/19 Levothyroxine Sodium [Synthroid] 125 mcg PO HS 06/05/18 01/16/19 Magnesium Gluconate [Magonate] 500 mg PO DAILY 06/05/18 01/16/19 [place]-3 Fatty Acids/Fish Oil [Fish 1 cap PO DAILY 06/05/18 01/16/19 Oil 1,000 mg Softgel] Raloxifene [Evista] 60 mg PO DAILY 06/05/18 01/16/19 Ranitidine HCl [Zantac] 300 mg PO BID 06/05/18 01/16/19 Vitamin B Complex 1 cap PO DAILY 06/05/18 01/16/19 metroNIDAZOLE 0.75% CREAM 1 applic TOPICAL BID 06/05/18 01/16/19 [Metrocream] Aspirin [[place] Aspirin EC] 81 mg PO DAILY 01/16/19 01/16/19 Cyclobenzaprine [Flexeril] 5 mg PO HS 01/16/19 01/16/19 Allergies Allergy/AdvReac Type Severity Reaction Status Date / Time ceftriaxone [From Rocephin] Allergy Rash/Hives Verified 06/05/18 19:45 cephalexin [From Keflex] Allergy Rash/Hives Verified 06/05/18 19:45 levofloxacin Allergy Rash/Hives Verified 06/05/18 19:45 nitrofurantoin Allergy Itching Verified 01/16/19 22:39 [From Macrobid] Sulfa (Sulfonamide Allergy Rash/Hives Verified 06/05/18 19:45 Antibiotics) Review of Systems ROS Statement: Those systems with pertinent positive or pertinent negative responses have been documented in the HPI. ROS Other: All systems not noted in ROS Statement are negative. Constitutional: Denies: fever Eyes: Denies: eye pain ENT: Denies: ear pain Respiratory: Denies: cough, dyspnea Cardiovascular: Reports: as per HPI, chest pain Endocrine: Denies: fatigue Gastrointestinal: Denies: abdominal pain Genitourinary: Denies: dysuria Musculoskeletal: Denies: back pain Skin: Denies: rash Neurological: Denies: weakness Past Medical History Past Medical History: GERD/Reflux, Thyroid Disorder Additional Past Medical History / Comment(s): Chrons History of Any Multi-Drug Resistant Organisms: None Reported Past Surgical History: Tonsillectomy Additional Past Surgical History / Comment(s): illiestomy, wrist surgery Past Psychological History: No Psychological Hx Reported Smoking Status: Never smoker Past Alcohol Use History: None Reported Past Drug Use History: None Reported General Exam Limitations: no limitations General appearance: alert, in no apparent distress Head exam: Present: normocephalic Eye exam: Present: normal appearance Neck exam: Present: normal inspection Respiratory exam: Present: normal lung sounds bilaterally. Absent: chest wall tenderness Cardiovascular Exam: Present: regular rate, normal rhythm Expanded Peripheral pulses: 2+: Radial (R), Radial (L), Dorsalis Pedis (R), Dorsalis Pedis (L) GI/Abdominal exam: Present: soft. Absent: distended, tenderness Extremities exam: Present: normal inspection. Absent: pedal edema, calf tenderness Neurological exam: Present: alert Psychiatric exam: Present: normal affect, normal mood Skin exam: Present: normal color Course Vital Signs 01/16/19 01/16/19 22:15 23:17 Temperature 97.9 F Pulse Rate 79 69 Respiratory 18 16 Rate Blood Pressure 143/83 155/63 O2 Sat by Pulse 98 97 Oximetry EKG Findings - EKG Comments: EKG Findings:: Normal sinus rhythm 72. [place] 134. QRS 78. QT 390. QTC 427. Normal axis. Normal QRS. No acute ST change. Medical Decision Making - Medical Decision Making Patient reevaluated and resting comfortably in bed. Amount of discomfort is similar. Patient and family updated on results and plan. Case was discussed in detail with Dr. Gonzalez, who will admit his patient. - Lab Data Result diagrams: 01/16/19 22:58 01/16/19 22:58 Lab Results 01/16/19 01/16/19 01/16/19 Range/Units 22:58 22:58 22:58 WBC 7.4 (3.8-10.6) k/uL RBC 4.67 (3.80-5.40) m/uL Hgb 13.8 (11.4-16.0) gm/dL Hct 41.5 (34.0-46.0) % MCV 89.0 (80.0-100.0) fL MCH 29.6 (25.0-35.0) pg MCHC 33.3 (31.0-37.0) g/dL RDW 13.2 (11.5-15.5) % Plt Count 252 (150-450) k/uL Neutrophils % 66 % Lymphocytes % 19 % Monocytes % 7 % Eosinophils % 4 % Basophils % 1 % Neutrophils # 4.9 (1.3-7.7) k/uL Lymphocytes # 1.4 (1.0-4.8) k/uL Monocytes # 0.5 (0-1.0) k/uL Eosinophils # 0.3 (0-0.7) k/uL Basophils # 0.1 (0-0.2) k/uL PT 9.4 (9.0-12.0) sec INR 0.8 (<1.2) APTT 24.4 (22.0-30.0) sec Sodium 136 L (137-145) mmol/L Potassium 5.5 H (3.5-5.1) mmol/L Chloride 103 (98-107) mmol/L Carbon Dioxide 27 (22-30) mmol/L Anion Gap 6 mmol/L BUN 18 H (7-17) mg/dL Creatinine 0.77 (0.52-1.04) mg/dL Est GFR (CKD-EPI)AfAm >90 (>60 ml/min/1.73 sqM) Est GFR (CKD-EPI)NonAf 80 (>60 ml/min/1.73 sqM) Glucose 92 (74-99) mg/dL Calcium 10.2 (8.4-10.2) mg/dL Magnesium 2.2 (1.6-2.3) mg/dL Total Bilirubin 0.8 (0.2-1.3) mg/dL AST 30 (14-36) U/L ALT 29 (9-52) U/L Alkaline Phosphatase 97 (38-126) U/L Troponin I (0.000-0.034) ng/mL Total Protein 7.3 (6.3-8.2) g/dL Albumin 4.6 (3.5-5.0) g/dL 01/16/19 Range/Units 22:58 WBC (3.8-10.6) k/uL RBC (3.80-5.40) m/uL Hgb (11.4-16.0) gm/dL Hct (34.0-46.0) % MCV (80.0-100.0) fL MCH (25.0-35.0) pg MCHC (31.0-37.0) g/dL RDW (11.5-15.5) % Plt Count (150-450) k/uL Neutrophils % % Lymphocytes % % Monocytes % % Eosinophils % % Basophils % % Neutrophils # (1.3-7.7) k/uL Lymphocytes # (1.0-4.8) k/uL Monocytes # (0-1.0) k/uL Eosinophils # (0-0.7) k/uL Basophils # (0-0.2) k/uL PT (9.0-12.0) sec INR (<1.2) APTT (22.0-30.0) sec Sodium (137-145) mmol/L Potassium (3.5-5.1) mmol/L Chloride (98-107) mmol/L Carbon Dioxide (22-30) mmol/L Anion Gap mmol/L BUN (7-17) mg/dL Creatinine (0.52-1.04) mg/dL Est GFR (CKD-EPI)AfAm (>60 ml/min/1.73 sqM) Est GFR (CKD-EPI)NonAf (>60 ml/min/1.73 sqM) Glucose (74-99) mg/dL Calcium (8.4-10.2) mg/dL Magnesium (1.6-2.3) mg/dL Total Bilirubin (0.2-1.3) mg/dL AST (14-36) U/L ALT (9-52) U/L Alkaline Phosphatase (38-126) U/L Troponin I <0.012 (0.000-0.034) ng/mL Total Protein (6.3-8.2) g/dL Albumin (3.5-5.0) g/dL - Radiology Data Radiology results: image reviewed (Chest x-ray shows no acute process) Disposition Clinical Impression: Chest pain Disposition: ADMITTED IP TO THIS [facility] Is patient prescribed a controlled substance at d/c from ED?: No Referrals: Nena Gonzalez MD [Primary Care Provider] - 1-2 days Decision Time: 00:26
[2019-01-16 23:16] LABS: Basophils # (A) 0.1 k/uL (0-0.2); Basophils % (A) 1 %; Eosinophils # (A) 0.3 k/uL (0-0.7); Eosinophils % (A) 4 %; HCT 41.5 % (34.0-46.0); HGB 13.8 gm/dL (11.4-16.0); Lymphocytes # (A) 1.4 k/uL (1.0-4.8); Lymphocytes % (A) 19 %; MCH 29.6 pg (25.0-35.0); MCHC 33.3 g/dL (31.0-37.0); Monocytes # (A) 0.5 k/uL (0-1.0); Monocytes % (A) 7 %; Neutrophils # (A) 4.9 k/uL (1.3-7.7); Neutrophils % (A) 66 %; Platelet Count 252 k/uL (150-450); RBC 4.67 m/uL (3.80-5.40); RDW 13.2 % (11.5-15.5); WBC 7.4 k/uL (3.8-10.6)
[2019-01-16 23:24] LABS: INR 0.8 (<1.2); Partial Thromboplastin Time 24.4 sec (22.0-30.0); Prothrombin Time 9.4 sec (9.0-12.0)
--- NOTE | 2019-01-16 23:29 | XR ---
EXAM: XR Chest, 2 Views CLINICAL HISTORY: ITS.REASON XR Reason: Chest Pain TECHNIQUE: Frontal and lateral views of the chest. COMPARISON: 06/05/18. FINDINGS: Lungs: Mild lower lung opacities, possible atelectasis. No consolidation. Pleural space: Unremarkable. No pneumothorax. Heart: Stable cardiomediastinal silhouette. Mediastinum: See above. Bones/joints: No acute fracture. IMPRESSION: No evidence of acute cardiopulmonary process.
[2019-01-16 23:36] LABS: ALT 29 U/L (9-52); AST 30 U/L (14-36); Albumin 4.6 g/dL (3.5-5.0); Alkaline Phosphatase 97 U/L (38-126); Anion Gap 6 mmol/L; Blood Urea Nitrogen 18 mg/dL (7-17); Calcium 10.2 mg/dL (8.4-10.2); Carbon Dioxide 27 mmol/L (22-30); Chloride 103 mmol/L (98-107); Glucose 92 mg/dL (74-99); Magnesium 2.2 mg/dL (1.6-2.3); Potassium 5.5 mmol/L (3.5-5.1); Sodium 136 mmol/L (137-145); Total Bilirubin 0.8 mg/dL (0.2-1.3); Total Protein 7.3 g/dL (6.3-8.2)
[2019-01-17] MEDS ORDERED: NITROGLYCERIN SL TABS 0.4 MG TAB SUBLINGUAL PRN (00:27)
[2019-01-17] MEDS: NITROGLYCERIN OINT 1 INCH/GM PACKET TOPICAL SCH ×2 (05:13→12:35)
[2019-01-17 08:29] LABS: ALT 29 U/L (9-52); AST 26 U/L (14-36); Alkaline Phosphatase 78 U/L (38-126); Anion Gap 8 mmol/L; Blood Urea Nitrogen 17 mg/dL (7-17); Calcium 10.1 mg/dL (8.4-10.2); Carbon Dioxide 25 mmol/L (22-30); Chloride 105 mmol/L (98-107); Glucose 94 mg/dL (74-99); Potassium 4.6 mmol/L (3.5-5.1); Sodium 138 mmol/L (137-145); Total Bilirubin 0.9 mg/dL (0.2-1.3); Total Protein 6.5 g/dL (6.3-8.2)
[2019-01-17 08:35] LABS: Basophils # (A) 0.1 k/uL (0-0.2); Basophils % (A) 1 %; Eosinophils # (A) 0.2 k/uL (0-0.7); Eosinophils % (A) 4 %; HCT 40.3 % (34.0-46.0); HGB 13.2 gm/dL (11.4-16.0); Lymphocytes # (A) 1.4 k/uL (1.0-4.8); Lymphocytes % (A) 25 %; MCH 28.8 pg (25.0-35.0); MCHC 32.7 g/dL (31.0-37.0); MCV 88.1 fL (80.0-100.0); Mean Platelet Volume 7.9; Monocytes # (A) 0.4 k/uL (0-1.0); Monocytes % (A) 8 %; Neutrophils # (A) 3.2 k/uL (1.3-7.7); Neutrophils % (A) 58 %; Platelet Count 257 k/uL (150-450); RBC 4.58 m/uL (3.80-5.40); RDW 13.9 % (11.5-15.5); WBC 5.6 k/uL (3.8-10.6)
[2019-01-17] MEDS ORDERED: FAMOTIDINE 20 MG TAB PO SCH (09:00)
[2019-01-17] MEDS ORDERED: RALOXIFENE 60 MG TAB PO SCH (09:00)
--- NOTE | 2019-01-17 09:41 | CONS ---
CONSULTATION Sarita Eisenberg is a 68-year-old lady with a known diagnosis of Crohn's disease for which she has had surgery and has an ileostomy. 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 She is not particularly active person and does not have a regular exercise program. Yesterday she was driving home from work. She developed some discomfort in the chest under her left breast, which was constant, lasted for 3 hours. Achy feeling, persisted. No diaphoresis. No clear-cut radiation. Quality of pain is very atypical. Interestingly, she had a stress echo in May, walked for over 10 minutes without ischemia. Quality of pain is atypical. There is some mild tenderness as well. Possibility of this being musculoskeletal should be considered. She is resting comfortably without symptoms. Her potassium level is high at 5.5. She takes a lot of supplements including biotin, magnesium and also some Magonate supplements and also vitamin C and other Biotene-like medications. She is asymptomatic at the time of my evaluation. PAST MEDICAL HISTORY: Remarkable for Crohn's disease and hypothyroidism. She is status post colostomy. She also had a negative stress echo in May of 2018. MEDICATIONS: At home include ascorbic acid, biotin, cholecalciferol, vitamin B12, magnesium supplements, and she takes Synthroid 125 mcg daily. ALLERGIES: She is allergic to PENICILLIN and CEPHALOSPORINS and LEVOFLOXACIN and SULFONAMIDES. She is status post partial resection of the colon and has an ileostomy. PHYSICAL EXAMINATION: Blood pressure is 120/80, pulse rate 70 per minute, regular. HEENT unremarkable. Fundus was not examined by me. Neck is supple. No JVD. I do not hear a carotid bruit. There is no thyromegaly. Heart exam reveals S1, S2 heard normally. No significant murmurs. Lungs are clear. Abdomen is soft, nontender. Lower extremities reveal palpable pulses. No edema. Central system is normal. EKG revealed a sinus mechanism with some artifact. No acute changes. LAB DATA: Reveals that her troponin levels are normal. IMPRESSION: 1. Atypical musculoskeletal chest pain. 2. Negative stress echo 6-7 months ago. 3. History of Crohn's disease status post ileostomy. RECOMMENDATIONS: I am recommending that we will increase activity. Check another potassium level. I have advised the patient to take low potassium containing foods, especially to avoid nuts, potatoes, oranges and tomato. Repeat potassium will be performed. She will observe the diet and have a repeat potassium checked as an outpatient. I discussed my thoughts in detail with the patient. No additional testing is necessary at this time and she will follow up with Dr. Gonzalez as an outpatient. EMANUEL / OBDULIA: [id number] /
--- NOTE | 2019-01-17 10:56 | P.HPIM ---
History of Present Illness H&P Date: 01/17/19 this is a 68-year-old female patient who presented to the hospital with complaints of chest pain. Patient stated the pain started yesterday while driving and lasted approximately 3 hours. Patient describes pain as more of a pressure. Patient reports that he felt she needed to burp. She denies any associated shortness of breath. Patient denies any nausea vomiting or diaphoresis occurring with pain. Patient denies any significant cardiac history herself. Patient reports that she had a stress test temperature of 2018 that was normal. Patient does report a significant family history on both her parents. Patient does have a past medical history of GERD, hypertension, hypothyroidism and Crohn's. Patient's troponins negative 2. Chest x-ray completed showing no evidence of acute cardiopulmonary process. EKG completed showing normal sinus rhythm normal EKG. Cardiology services have been consulted. At this time patient is resting quietly chair. Patient denies chest pain or shortness of breath. Patient denies nausea vomiting or diarrhea. Patient denies any urinary burning or frequency. Review of Systems Please refer to HPI otherwise unremarkable Past Medical History Past Medical History: GERD/Reflux, Hypertension, Thyroid Disorder Additional Past Medical History / Comment(s): Chrons with ileostomy- "I don't have a colon." History of Any Multi-Drug Resistant Organisms: None Reported Past Surgical History: Tonsillectomy Additional Past Surgical History / Comment(s): illiestomy, wrist surgery Past Anesthesia/Blood Transfusion Reactions: No Reported Reaction Past Psychological History: No Psychological Hx Reported Smoking Status: Never smoker Past Alcohol Use History: None Reported Past Drug Use History: None Reported Medications and Allergies Home Medications Medication Instructions Recorded Confirmed Type Ascorbic Acid [Vitamin C] 500 mg PO DAILY 06/05/18 01/16/19 History Biotin 1,000mcg 1,000 mcg PO DAILY 06/05/18 01/16/19 History Calcium Carbonate/Vitamin D3 1 tab PO DAILY 06/05/18 01/16/19 History [Calcium 600-Vit D3 200 Tablet] Cholecalciferol [Vitamin D3] 800 unit PO DAILY 06/05/18 01/16/19 History Cyanocobalamin (Vitamin B-12) 1,000 mcg PO DAILY 06/05/18 01/16/19 History [Vitamin B-12] Glucosamine 1500mg 1,500 mg PO DAILY 06/05/18 01/16/19 History Levothyroxine Sodium [Synthroid] 125 mcg PO HS 06/05/18 01/16/19 History Magnesium Gluconate [Magonate] 500 mg PO DAILY 06/05/18 01/16/19 History [place]-3 Fatty Acids/Fish Oil [Fish 1 cap PO DAILY 06/05/18 01/16/19 History Oil 1,000 mg Softgel] Raloxifene [Evista] 60 mg PO DAILY 06/05/18 01/16/19 History Ranitidine HCl [Zantac] 300 mg PO BID 06/05/18 01/16/19 History Vitamin B Complex 1 cap PO DAILY 06/05/18 01/16/19 History metroNIDAZOLE 0.75% CREAM 1 applic TOPICAL BID 06/05/18 01/16/19 History [Metrocream] Aspirin [[place] Aspirin EC] 81 mg PO DAILY 01/16/19 01/16/19 History Cyclobenzaprine [Flexeril] 5 mg PO HS 01/16/19 01/16/19 History Allergies Allergy/AdvReac Type Severity Reaction Status Date / Time ceftriaxone [From Rocephin] Allergy Rash/Hives Verified 06/05/18 19:45 cephalexin [From Keflex] Allergy Rash/Hives Verified 06/05/18 19:45 levofloxacin Allergy Rash/Hives Verified 06/05/18 19:45 nitrofurantoin Allergy Itching Verified 01/16/19 22:39 [From Macrobid] Sulfa (Sulfonamide Allergy Rash/Hives Verified 06/05/18 19:45 Antibiotics) Physical Exam Vitals: Vital Signs Temp Pulse Pulse Pulse Resp BP BP 01/17/19 08:00 98.4 F 114 H 15 01/17/19 04:49 97.9 F 72 15 120/86 01/17/19 04:09 79 16 01/17/19 03:04 79 16 01/17/19 01:12 98.2 F 64 15 147/84 01/17/19 00:47 98.2 F 72 16 130/87 01/17/19 00:40 16 01/16/19 23:17 69 16 155/63 01/16/19 22:15 97.9 F 79 18 143/83 BP Pulse Ox 01/17/19 08:00 114/63 95 01/17/19 04:49 98 01/17/19 04:09 04/24/19 03:04 01/17/19 01:12 97 01/17/19 00:47 94 L 01/17/19 00:40 01/16/19 23:17 97 01/16/19 22:15 98 Intake and Output 01/16/19 01/17/19 01/17/19 22:59 06:59 14:59 Intake Total 240 Balance 240 Intake: Oral 240 Other: Voiding Method Toilet # Voids 1 Weight 70.307 kg Head normocephalic Neck supple Lungs clear to auscultation bilaterally no wheezing or crackles Heart regular rate and rhythm S1-S2, no rub or gallop Abdomen is soft nontender nondistended positive bowel sounds no hepatosplenomegaly Extremities no edema Neuro alert and orientated to 3 Results CBC & Chem 7: 01/17/19 05:36 01/17/19 05:36 Labs: Abnormal Lab Results - Last 24 Hours (Table) 01/16/19 Range/Units 22:58 Sodium 136 L (137-145) mmol/L Potassium 5.5 H (3.5-5.1) mmol/L BUN 18 H (7-17) mg/dL Thrombosis Risk Factor Assmnt - Choose All That Apply Any of the Below Risk Factors Present?: No Other Risk Factors: Yes Each Risk Factor Represents 2 Points: Age 61-74 years Other congenital or acquired thrombophilia - If yes, enter type in comment: No Thrombosis Risk Factor Assessment Total Risk Factor Score: 2 Thrombosis Risk Factor Assessment Level: Low Risk Assessment and Plan Assessment: 1. Chest pain. Troponins negative 3. Chest x-ray completed showing no evidence of acute cardiopulmonary process. EKG completed showing normal sinus rhythm normal EKG. Chest pain has resolved. Patient was evaluated by c ardiology services. Patient had recent stress test to 7 months ago and was negative. Per cardiology avoid potassium foods. No additional testing at this time patient follow-up with PCP outpatient 2. Hyperkalemia. Potassium 5.5. Repeat 4.6. Patient educated on avoiding high potassium foods 3. History of GERD 4. History of hypothyroidism. TSH level 2.840 5. History of Crohn's Time with Patient: Greater than 30 (Greater than 60% of the total time spent in counseling and coordination of care. I performed an examination of the patient and discussed their management with the Nurse Practitioner. I have reviewed the Nurse Practitioner's notes and agree with the documented findings and plan of care)
[2019-01-17 12:19] VITALS: BP 167/96; PULSE 73; RESP 16; TEMP 98.2
[2019-01-17] MEDS ORDERED: amLODIPine 2.5 MG TAB PO SCH (13:00)
--- NOTE | 2019-01-17 13:33 | P.DS ---
Providers Date of admission: 01/17/19 00:27 Expected date of discharge: 01/17/19 Attending physician: Nena Gonzalez Consults: 01/17/19 00:27 Consult Physician Urgent Consulting Provider: Reji Crain Consult Reason/Comments: cp Do you want consulting provider notified?: Yes Primary care physician: Nena Lisa [facility] Course: Discharge diagnosis 1. Chest pain. Troponins negative 3. Chest x-ray completed showing no evidence of acute cardiopulmonary process. EKG completed showing normal sinus rhythm normal EKG. Chest pain has resolved. Patient was evaluated by cardiology services. Patient had recent stress test to 7 months ago and was negative. Per cardiology avoid potassium foods. No additional testing at this time patient follow-up with PCP outpatient 2. Hyperkalemia. Potassium 5.5. Repeat 4.6. Patient educated on avoiding high potassium foods. Repeat BMP ordered for 3 days 3. History of GERD 4. History of hypothyroidism. TSH level 2.840 5. History of Crohn's Hospital course this is a 68-year-old female patient who presented to the hospital with complaints of chest pain. Patient stated the pain started yesterday while driving and lasted approximately 3 hours. Patient describes pain as more of a pressure. Patient reports that he felt she needed to burp. She denies any associated shortness of breath. Patient denies any nausea vomiting or diaphoresis occurring with pain. Patient denies any significant cardiac history herself. Patient reports that she had a stress test temperature of 2018 that was normal. Patient does report a significant family history on both her parents. Patient does have a past medical history of GERD, hypertension, hypothyroidism and Crohn's. Patient's troponins negative 2. Chest x-ray completed showing no evidence of acute cardiopulmonary process. EKG completed showing normal sinus rhythm normal EKG. Cardiology services have been consult ed. At this time patient is resting quietly chair. Patient denies chest pain or shortness of breath. Patient denies nausea vomiting or diarrhea. Patient denies any urinary burning or frequency. Patient has been cleared for discharge from cardiology standpoint. No additional testing at this time per cardiology. Patient to follow-up with her PCP. Patient is very eager to go home at this time patient denies chest pain or shortness breath. Patient denies nausea vomiting or diarrhea. Patient denies any urinary burning or frequency. Repeat potassium 5.5. Patient did have stress echocardiogram May and was negative. I performed an examination of the patient and discussed their management with the Nurse Practitioner. I have reviewed the Nurse Practitioner's notes and agree with the documented findings and plan of care Patient Condition at Discharge: Stable Plan - Discharge Summary Discharge Rx Participant: Yes New Discharge Prescriptions: New amLODIPine [Norvasc] 2.5 mg PO DAILY 30 Days #30 tab Continue [place]-3 Fatty Acids/Fish Oil [Fish Oil 1,000 mg Softgel] 1 cap PO DAILY Cholecalciferol [Vitamin D3] 800 unit PO DAILY Ascorbic Acid [Vitamin C] 500 mg PO DAILY Magnesium Gluconate [Magonate] 500 mg PO DAILY Cyanocobalamin (Vitamin B-12) [Vitamin B-12] 1,000 mcg PO DAILY Biotin 1,000mcg 1,000 mcg PO DAILY Vitamin B Complex 1 cap PO DAILY Glucosamine 1500mg 1,500 mg PO DAILY metroNIDAZOLE 0.75% CREAM [Metrocream] 1 applic TOPICAL BID Ranitidine HCl [Zantac] 300 mg PO BID Levothyroxine Sodium [Synthroid] 125 mcg PO HS Raloxifene [Evista] 60 mg PO DAILY Calcium Carbonate/Vitamin D3 [Calcium 600-Vit D3 200 Tablet] 1 tab PO DAILY Aspirin [[place] Aspirin EC] 81 mg PO DAILY Cyclobenzaprine [Flexeril] 5 mg PO HS Discharge Medication List Ascorbic Acid [Vitamin C] 500 mg PO DAILY 06/05/18 [History] Biotin 1,000mcg 1,000 mcg PO DAILY 06/05/18 [History] Calcium Carbonate/Vitamin D3 [Calcium 600-Vit D3 200 Tablet] 1 tab PO DAILY 06/05/18 [History] Cholecalciferol [Vitamin D3] 800 unit PO DAILY 06/05/18 [History] Cyanocobalamin (Vitamin B-12) [Vitamin B-12] 1,000 mcg PO DAILY 06/05/18 [History] Glucosamine 1500mg 1,500 mg PO DAILY 06/05/18 [History] Levothyroxine Sodium [Synthroid] 125 mcg PO HS 06/05/18 [History] Magnesium Gluconate [Magonate] 500 mg PO DAILY 06/05/18 [History] [place]-3 Fatty Acids/Fish Oil [Fish Oil 1,000 mg Softgel] 1 cap PO DAILY 06/05/18 [History] Raloxifene [Evista] 60 mg PO DAILY 06/05/18 [History] Ranitidine HCl [Zantac] 300 mg PO BID 06/05/18 [History] Vitamin B Complex 1 cap PO DAILY 06/05/18 [History] metroNIDAZOLE 0.75% CREAM [Metrocream] 1 applic TOPICAL BID 06/05/18 [History] Aspirin [[place] Aspirin EC] 81 mg PO DAILY 01/16/19 [History] Cyclobenzaprine [Flexeril] 5 mg PO HS 01/16/19 [History] amLODIPine [Norvasc] 2.5 mg PO DAILY 30 Days #30 tab 01/17/19 [Rx] Follow up Appointment(s)/Referral(s): Nena Gonzalez MD [Primary Care Provider] - 1-2 days Ambulatory/Diagnostic Orders: Comprehensive Metabolic Panel [LAB.AMB] Time Frame: 3 Days, Location: None Selected Activity/Diet/Wound Care/Special Instructions: activity as tolerated diet heart healthy Discharge Disposition: HOME SELF-CARE
[2019-01-17] MEDS ORDERED: LEVOTHYROXINE 125 MCG TAB PO SCH (21:00)
[2019-01-18] MEDS ORDERED: ASPIRIN 325 MG TAB PO SCH (09:00)
== END 2019-01-17 13:33 | disposition home or self-care (01) ==
LOC: EC 22:02 → 1SOBS 01-17 00:27
PROVIDERS: ADMIT Internal Medicine; ATTEND Internal Medicine
DX: R07.89 Other chest pain (principal); I10 Essential (primary) hypertension; K50.90 Crohn's disease, unspecified, without complications; K21.9 Gastro-esophageal reflux disease without esophagitis; E03.9 Hypothyroidism, unspecified; E87.5 Hyperkalemia; Z79.890 Hormone replacement therapy; Z79.82 Long term (current) use of aspirin; Z79.899 Other long term (current) drug therapy; Z88.1 Allergy status to other antibiotic agents; Z88.2 Allergy status to sulfonamides; Z93.2 Ileostomy status; Z90.49 Acquired absence of other specified parts of digestive tract
CPT/HCPCS: 99285; 36415; 93005; 80053 ×2; 84443; 83735; 84484 ×2; 85025 ×2; 85610; 85730; 71046; G0378

== ENCOUNTER → 2019-04-04 | Outpatient (CLI) | payer MEDICARE, BC ==
--- NOTE | 2019-04-04 14:22 | BD ---
EXAMINATION TYPE: Axial Bone Density DATE OF EXAM: 04/04/2019 COMPARISON: 2017 CLINICAL HISTORY: M 81.0 Height: 64 Weight: 150.8 FRAX RISK QUESTIONS: Alcohol (3 or more units per day): no Family History (Parent hip fracture): yes Glucocorticoids (More than 3mos): no (Ex: prednisone, prednisolone, methylprednisolone, dexamethasone, and hydrocortisone). History of Fracture in Adulthood: yes Secondary Osteoporosis: 1. Type 1 Diabetes: no 2. Hyperthyroidism: no 3. Menopause before 45: no 4. Malnutrition: yes 5. Chronic liver disease: no Rheumatoid Arthritis: no Current Tobacco Use: no RISK FACTORS HISTORY OF: left wrist fx- 10 years ago Family History of Osteoporosis: yes Active: yes Diet low in dairy products/other sources of calcium: yes Postmenopausal woman: age 52 Lost more than 2 inches in height since high school: just two MEDICATIONS: blood pressure, protonix Thyroid Medications: levothyroxine How Long: long time Osteoporosis Medications: evista How Lon years Additional Medications: Additional History: EXAM MEASUREMENTS: Bone mineral densitometry was performed using the [employer] System. Bone mineral density as measured about the Lumbar spine is: ----- L1-L4(G/cm2): 1.090 T Score Values are as follows: ----- L2: -2.2 ----- L3: 0.5 ----- L4: 0.8 ----- L1-L4: -0.7 Bone mineral density has: increased 1.0 % since study of: 08.17.2017 Bone mineral density about the R hip (g/cm2): 0.760 Bone mineral density about the L hip (g/cm2): 0.787 T Score values are as follows: -----R Neck: -2.0 -----L Neck: -1.8 -----R Total: -2.0 -----L Total: -1.8 Bone mineral density has: decreased -1.4 % since study of: 08.17.2017 IMPRESSION: Osteopenia (T Score between -2.5 and -1). There is slightly increased risk of fracture and the patient may be considered for treatment. Re-Screen 2-5 years. NOTE: T-SCORE=SD OF THE YOUNG ADULT MEAN.
== END | disposition home or self-care (01) ==
LOC: RADBDWWP 13:30
PROVIDERS: ATTEND Internal Medicine Rheumatology
DX: M81.0 Age-related osteoporosis without current pathological fracture (principal); M85.851 Other specified disorders of bone density and structure, right thigh
CPT/HCPCS: 77080

== ENCOUNTER → 2019-07-31 | Outpatient (CLI) | payer MEDICARE, BC ==
[2019-07-31 14:11] LABS: Basophils # (A) 0.2 k/uL (0-0.2); Basophils % (A) 4 %; Eosinophils # (A) 0.2 k/uL (0-0.7); Eosinophils % (A) 3 %; HGB 13.5 gm/dL (11.4-16.0); Lymphocytes % (A) 20 %; MCH 30.1 pg (25.0-35.0); MCHC 32.9 g/dL (31.0-37.0); MCV 91.5 fL (80.0-100.0); Mean Platelet Volume 6.7; Monocytes # (A) 0.4 k/uL (0-1.0); Monocytes % (A) 8 %; Neutrophils # (A) 3.2 k/uL (1.3-7.7); Neutrophils % (A) 62 %; Platelet Count 269 k/uL (150-450); RBC 4.48 m/uL (3.80-5.40); RDW 12.8 % (11.5-15.5); WBC 5.1 k/uL (3.8-10.6)
[2019-07-31 16:05] LABS: Erythrocyte Sedimentation Rate 8 mm/hr (0-20)
[2019-07-31 20:10] LABS: African American GFR (CKD) 76.7 (60.0-200.0); Albumin 4.5 g/dL (3.80-4.90); Anion Gap 6.4 mmol/L (4.00-12.00); C Reactive Protein 0.5 mg/dL (0.0-0.8); Calcium 9.8 mg/dL (8.7-10.3); Carbon Dioxide 27.6 mmol/L (21.6-31.8); Potassium 4.8 mmol/L (3.5-5.5)
[2019-07-31 20:52] LABS: Cyclic Citrull Pep IgG Unit 0.7 U/mL; Cyclic Citrullinated Pep IgG NEGATIVE (NEGATIVE)
== END | disposition home or self-care (01) ==
LOC: LABWHC1 11:39
PROVIDERS: ATTEND Internal Medicine
DX: M06.4 Inflammatory polyarthropathy (principal); Z79.899 Other long term (current) drug therapy
CPT/HCPCS: 36415; 80051; 82040; 82306; 82310; 82565; 82652; 84450; 84460; 84520; 85025; 85652; 86140; 86200; 86431

== ENCOUNTER → 2019-07-31 | Outpatient (CLI) | payer MEDICARE, BC | END | disposition home or self-care (01) | LOC: LABWHC1 11:42 | PROVIDERS: ATTEND Internal Medicine Rheumatology | DX: Z53.9 Procedure and treatment not carried out, unspecified reason (principal) ==

== ENCOUNTER → 2019-07-31 | Outpatient (CLI) | payer MEDICARE, BC ==
--- NOTE | 2019-07-31 15:59 | XR ---
Thoracic spine HISTORY: Back pain 3 views of the thoracic spine There is a mild scoliosis which is S-shaped within the thoracic spine. Bone mineralization is reduced which limits sensitivity. Thoracic vertebral bodies show preserved height. There is multilevel spond ylosis with some loss of disc height and intervertebral levels. IMPRESSION: Degenerative disc disease, scoliosis and osteopenia.
--- NOTE | 2019-08-02 09:47 | MM ---
Reason for exam: screening (asymptomatic). Last mammogram was performed 1 year ago. History: Patient is postmenopausal. Took progesterone for 2 years beginning at age 55. Physical Findings: A clinical breast exam by your physician is recommended on an annual basis and results should be correlated with mammographic findings. MG 3D Screening Mammo W/Cad Bilateral CC and MLO view(s) were taken. Prior study comparison: July 19, 2018, bilateral MG 3d screening mammo w/cad. July 13, 2017, bilateral MG 3d screening mammo w/cad. The breast tissue is heterogeneously dense. This may lower the sensitivity of mammography. Stable benign calcifications. There is no discrete abnormality. No significant changes when compared with prior studies. ASSESSMENT: Benign, BI-RAD 2 RECOMMENDATION: Routine screening mammogram of both breasts in 1 year.
== END | disposition home or self-care (01) ==
LOC: RADMAMWWP 11:06
PROVIDERS: ATTEND Obstetrics & Gynecology
DX: Z12.31 Encounter for screening mammogram for malignant neoplasm of breast (principal); M51.34 Other intervertebral disc degeneration, thoracic region; M41.84 Other forms of scoliosis, thoracic region; M85.88 Other specified disorders of bone density and structure, other site
CPT/HCPCS: 72072; 77063; 77067

== ENCOUNTER → 2019-08-29 | Outpatient (CLI) | payer MEDICARE, BC ==
--- NOTE | 2019-08-29 10:35 | US ---
EXAMINATION TYPE: US abdomen complete DATE OF EXAM: 08/29/2019 COMPARISON: NONE CLINICAL HISTORY: R10.84 ABD PAIN GENERALIZED. RUQ pain, ileostomy EXAM MEASUREMENTS: Liver Length: 15.5 cm Gallbladder Wall: 0.2 cm CBD: 0.5 cm Spleen: 9.6 cm Right Kidney: 10.7 x 3.8 x 4.4 cm Left Kidney: 10.1 x 4.0 x 4.6 cm Pancreas: limited evaluation Liver: Normal variant Brennen's lobe noted Gallbladder: no evidence of stones Evidence for sonographic Taveras's sign: no CBD: wnl Spleen: wnl Right Kidney: no evidence of stones Left Kidney: no evidence of stones Upper IVC: wnl Abd Aorta: wnl The liver is homogenous. The intrahepatic portion of the IVC and proximal abdominal aorta are within normal limits. There is no evidence of cholelithiasis. Common bile duct is unremarkable. The visu alized portions of the pancreas are homogenous. The spleen is unremarkable. Kidneys are symmetric a nd free of hydronephrosis. No renal lesions are seen. IMPRESSION: No sonographic evidence of cholelithiasis or acute cholecystitis. Overall unremarkable ex am.
== END | disposition home or self-care (01) ==
LOC: RADUSWWP 09:41
PROVIDERS: ATTEND Internal Medicine
DX: R10.84 Generalized abdominal pain (principal)
CPT/HCPCS: 76700

== ENCOUNTER 2019-10-03 09:04 | Day surgery (SDC) | payer MEDICARE, BC ==
[~2019-10-03 09:04] MED LIST: LACTATED RINGERS 1,000 ML IV SCH; LIDOCAINE 1% 20 ML VIAL (10MG/ML) FOR IV START INTRADERMA PRN
[2019-10-03 09:23] VITALS: RESP 16; TEMP 97.3
[2019-10-03] MEDS ORDERED: PROPOFOL 10 MG/ML 20 ML VIAL IV ONE (10:14)
[2019-10-03] MEDS ORDERED: LIDOCAINE 1% INJ 10MG/ML (20 ML MDV) ONE (10:14)
--- NOTE | 2019-10-03 10:23 | P.PCN ---
Date of Procedure: 10/03/19 Procedure(s) Performed: BRIEF HISTORY: Patient is a 68-year-old, pleasant, male, scheduled for an upper endoscopy as a part of evaluation of sending history of GERD of several years duration. She is maintained on now Pepcid 20 mg twice daily. She is scheduled for an upper endoscopy to rule out complicated reflux. PROCEDURE PERFORMED: Esophagogastroduodenoscopy with biopsy . PREOPERATIVE DIAGNOSIS: Long-standing history of GERD. IV sedation per anesthesia. PROCEDURE: After informed consent was obtained, the patient was brought into the endoscopy unit. IV sedation was administered by Anesthesia under continuous monitoring. Initially the Olympus GIF-140 video endoscope was inserted into the mouth. Esophagus intubated without any difficulty. It was gradually advanced into the stomach and duodenum and carefully examined. The bulb and the second part of the duodenum appeared normal. The scope at this time was withdrawn to the stomach, adequately insufflated with air, and upon careful examination, mucosa of the antrum had scattered erosions consistent with gastritis and biopsies were done from this area. The body, cardia and the fundus appeared normal. The scope was then withdrawn into the esophagus. The GE junction was located at 39 cm from the incisors. The esophagus appeared normal. There were no erosions or ulcerations seen and the patient tolerated the procedure well. IMPRESSION: 1. Antral erosive gastritis . 2. Normal-appearing esophagus with no evidence of esophagitis or Brantley's esophagus RECOMMENDATIONS: The findings of this examination were discussed with the patient as well as a family. She will continue with Pepcid 20 mg twice daily and continue to follow antireflux measures..
[2019-10-03 10:31] VITALS: PULSE 70
[2019-10-03 10:50] VITALS: BP 140/75
== END 2019-10-03 11:15 | disposition home or self-care (01) ==
LOC: ORWHC2ENDO 09:04
PROVIDERS: ATTEND Internal Medicine Gastroenterology
DX: K29.50 Unspecified chronic gastritis without bleeding (principal); K21.9 Gastro-esophageal reflux disease without esophagitis; I10 Essential (primary) hypertension; G47.33 Obstructive sleep apnea (adult) (pediatric); J44.9 Chronic obstructive pulmonary disease, unspecified; E07.9 Disorder of thyroid, unspecified; M19.90 Unspecified osteoarthritis, unspecified site; K50.90 Crohn's disease, unspecified, without complications; Z79.890 Hormone replacement therapy; Z79.82 Long term (current) use of aspirin; Z79.899 Other long term (current) drug therapy; Z79.810 Long term (current) use of selective estrogen receptor modulators (SERMs); Z88.1 Allergy status to other antibiotic agents; Z88.2 Allergy status to sulfonamides; Z99.89 Dependence on other enabling machines and devices; Z93.2 Ileostomy status; Z90.89 Acquired absence of other organs
CPT/HCPCS: 88305; 43239; J2001; J2704

== ENCOUNTER → 2019-10-31 | Outpatient (CLI) | payer MEDICARE, BC ==
[2019-10-31 14:51] LABS: African American GFR (CKD) >90 (>60 ml/min/1.73 sqM); Blood Urea Nitrogen 26 mg/dL (7-17); Non-African American GFR(CKD) 86 (>60 ml/min/1.73 sqM)
--- NOTE | 2019-10-31 16:35 | CT ---
EXAMINATION TYPE: CT abdomen pelvis w con DATE OF EXAM: 10/31/2019 COMPARISON: 06/21/2018 HISTORY: Pelvic pain. Hx of ileostomy CT DLP: 619.7 mGycm CONTRAST: CT scan of the abdomen and pelvis is performed with Oral Contrast and with IV Contrast, patient injec kun with 100 mL of Isovue 300. FINDINGS: LUNG BASES-: No visible nodule. No infiltrate. LIVER/GB: No calcified gallstones. No space occupying hepatic lesion. Biliary tree is of normal ca liber. PANCREAS: No inflammation. No distinct mass. SPLEEN: No splenic enlargement. No lesion seen. ADRENALS: No nodule. No thickening. KIDNEYS/BLADDER: No hydronephrosis. No nephrolithiasis. No distinct renal mass. Urinary bladder g rossly unremarkable. BOWEL: Status post colectomy with right lower quadrant ileostomy. GENITAL ORGANS: Atrophic uterus. Stable cystic structure measuring 2 cm which may reflect the right ovary or adnexa. LYMPH NODES: No greater than 1cm abdominal or pelvic lymph nodes are appreciated. AORTA: No significant abnormality. OSSEOUS STRUCTURES: No significant abnormality is seen. OTHER: No significant additional abnormality is seen. IMPRESSION: 1. Stable abdomen and pelvis.
== END | disposition home or self-care (01) ==
LOC: RADCTMAIN 14:11
PROVIDERS: ATTEND Internal Medicine
DX: R10.9 Unspecified abdominal pain (principal)
CPT/HCPCS: 82565; 84520; 74177; 36415; Q9967

== ENCOUNTER → 2020-07-09 | Outpatient (CLI) | payer MEDICARE ==
--- NOTE | 2020-07-09 16:27 | US ---
EXAMINATION TYPE: US pelvis complete transvag DATE OF EXAM: 07/09/2020 COMPARISON: Transvaginal ultrasound 07/19/2018 CLINICAL HISTORY: R10.9 Pelvic Pain. Midline pelvic pain in March, h/o right sided cyst, patient has i leostomy. Postmenopausal. TECHNIQUE: TA/TV. Transabdominal sonographic images of the pelvis were acquired. Transvaginal sono graphic images were medically necessary to better assess the following anatomy: uterus and ovaries Date of LMP: 17 years ago EXAM MEASUREMENTS: Uterus: 5.5 x 2.8 x 2.4cm Endometrial Stripe: 0.7cm Right Ovary: not seen Left Ovary: not seen 1. Uterus: Anteverted atrophic 2. Endometrium: fluid seen within canal and noted on previous exam 3. Right Ovary: Obscured by overlying bowel gas 4. Left Ovary: Obscured by overlying bowel gas 5. Bilateral Adnexa: Normal. 6. Posterior cul-de-sac: Normal. No free fluid. IMPRESSION: 1. Endometrial fluid is redemonstrated from 07/19/2018 comparison. Atrophic uterus. 2. Nonvisualization of the bilateral ovaries. 3. No free fluid.
== END | disposition home or self-care (01) ==
LOC: RADUSWWP 14:27
PROVIDERS: ATTEND Internal Medicine
DX: N85.8 Other specified noninflammatory disorders of uterus (principal)
CPT/HCPCS: 76830; 76856

== ENCOUNTER → 2020-08-14 | Outpatient (CLI) | payer MEDICARE ==
--- NOTE | 2020-08-15 09:37 | MM ---
Reason for exam: screening (asymptomatic). Last mammogram was performed 1 year ago. History: Patient is postmenopausal. Took progesterone for 2 years beginning at age 55. Physical Findings: A clinical breast exam by your physician is recommended on an annual basis and results should be correlated with mammographic findings. MG 3D Screening Mammo W/Cad Bilateral CC and MLO view(s) were taken. Prior study comparison: July 31, 2019, bilateral MG 3d screening mammo w/cad. July 19, 2018, bilateral MG 3d screening mammo w/cad. The breast tissue is heterogeneously dense. This may lower the sensitivity of mammography. Stable benign calcifications. There is no discrete abnormality. No significant changes when compared with prior studies. ASSESSMENT: Benign, BI-RAD 2 RECOMMENDATION: Routine screening mammogram of both breasts in 1 year.
== END | disposition home or self-care (01) ==
LOC: RADMAMWWP 14:43
PROVIDERS: ATTEND Obstetrics & Gynecology
DX: Z12.31 Encounter for screening mammogram for malignant neoplasm of breast (principal)
CPT/HCPCS: 77063; 77067

== ENCOUNTER → 2020-09-15 | Outpatient (CLI) | payer MEDICARE ==
[2020-09-15 19:09] LABS: Protein, Total 6.5 g/dL (6.2-8.2)
== END | disposition home or self-care (01) ==
LOC: LABWHC1 12:39
PROVIDERS: ATTEND Psychiatry & Neurology Neurology
DX: G62.9 Polyneuropathy, unspecified (principal); R25.2 Cramp and spasm
CPT/HCPCS: 36415; 82550; 84165; 84207; 86038; 86334

== ENCOUNTER → 2021-04-20 | Outpatient (CLI) | payer MEDICARE ==
--- NOTE | 2021-04-20 18:55 | BD ---
EXAMINATION TYPE: Axial Bone Density DATE OF EXAM: 04/20/2021 COMPARISON: 04/04/2019 CLINICAL HISTORY: 70-year-old female postmenopausal screening Height: 63.5 IN Weight: 146 LBS FRAX RISK QUESTIONS: Family History (Parent hip fracture): YES MOTHER AND FATHER History of Fracture in Adulthood: LT HIP AGE 70 LT WRIST FX AGE 54 RISK FACTORS HISTORY OF: Hip Fracture (Left): AGE 70 History of Wrist Fracture: LT AGE 54 Surgery to Hip(left)/Wrist (left): LT HIP AGE 70; LT WRIST AGE 54 Active: MODERATE Diet low in dairy products/other sources of calcium: YES Postmenopausal woman: AGE 52 Lost more than 2 inches in height since high school: YES 2 09/27" MEDICATIONS: Thyroid Medications: YES Which medication: Levothyroxine How Lon+ YEARS Osteoporosis Medications: YES Which medication: Evista How Lon+ YEARS Additional Medications: CALCIUM, VIT D, LEVOTHYROXINE, EVISTA, BLOOD PRESSURE EXAM MEASUREMENTS: Bone mineral densitometry was performed using the [employer] System. Bone mineral density as measured about the Lumbar spine is: ----- L1-L4(G/cm2): 1.109 T Score Values are as follows: ----- L2: -1.7 ----- L3: 0.8 ----- L4: 0.4 ----- L1-L4: -0.6 Bone mineral density has: Increased 1.5% since study of: 04/04/2019 LT HIP REPLACEMENT AGE 70 Bone mineral density about the R hip (g/cm2): 0.766 T Score values are as follows: -----R Neck: -2.0 -----R Total: -1.9 Bone mineral density has: Increased 1.3% since study of: 04/04/2019 IMPRESSION: Osteopenia (T Score between -2.5 and -1). There is slightly increased risk of fracture and the patient may be considered for treatment. Re-Screen 2-5 years. NOTE: T-SCORE=SD OF THE YOUNG ADULT MEAN.
== END | disposition home or self-care (01) ==
LOC: RADBDWWP 10:34
PROVIDERS: ATTEND Internal Medicine Rheumatology
DX: M85.851 Other specified disorders of bone density and structure, right thigh (principal)
CPT/HCPCS: 77080

== ENCOUNTER → 2021-07-29 | Outpatient (CLI) | payer MEDICARE ==
--- NOTE | 2021-07-29 14:17 | XR ---
EXAMINATION TYPE: XR chest 2V DATE OF EXAM: 07/29/2021 COMPARISON: Chest x-ray 01/16/2019, CT chest 06/22/2016 HISTORY: Redness of breath TECHNIQUE: Frontal and lateral views of the chest are obtained. FINDINGS: There is no focal air space opacity, pleural effusion, or pneumothorax seen. The cardiac silhouette size is within normal limits. Right apical pleural thickening is again noted. Prominent suze ng biopsy with flattening of hemidiaphragms consistent with COPD. There is thoracic spondylosis. The osseous structures are intact. IMPRESSION: No acute cardiopulmonary process. There is underlying emphysema.
== END | disposition home or self-care (01) ==
LOC: RADXRMAIN 13:14
PROVIDERS: ATTEND Internal Medicine
DX: R06.02 Shortness of breath (principal)
CPT/HCPCS: 71046

== ENCOUNTER → 2021-08-27 | Outpatient (CLI) | payer MEDICARE ==
--- NOTE | 2021-08-27 13:16 | US ---
EXAMINATION TYPE: US abdomen limited DATE OF EXAM: 08/27/2021 COMPARISON: NONE CLINICAL HISTORY: R10.11 Abdominal pain. EXAM MEASUREMENTS: Liver Length: 15.1 cm Gallbladder Wall: 0.4 cm CBD: 1.0 cm Right Kidney: 9.4x5.1x4.2 cm Pancreas: Tail obscured by overlying bowel gas Liver: wnl Gallbladder: No stones seen Evidence for sonographic Taveras's sign: No CBD: Enlarged Right Kidney: wnl IMPRESSION: Prominence of the common bile duct. Otherwise unremarkable study.
== END | disposition home or self-care (01) ==
LOC: RADUSWWP 12:22
PROVIDERS: ATTEND Internal Medicine
DX: R10.11 Right upper quadrant pain (principal)
CPT/HCPCS: 76705

== ENCOUNTER → 2021-09-17 | Outpatient (CLI) | payer MEDICARE ==
--- NOTE | 2021-09-21 13:55 | MM ---
Reason for exam: screening (asymptomatic). Last mammogram was performed 1 year and 1 month ago. History: Patient is postmenopausal. Took progesterone for 2 years beginning at age 55. Physical Findings: A clinical breast exam by your physician is recommended on an annual basis and results should be correlated with mammographic findings. MG 3D Screening Mammo W/Cad Bilateral CC and MLO view(s) were taken. Prior study comparison: August 14, 2020, bilateral MG 3d screening mammo w/cad. July 31, 2019, bilateral MG 3d screening mammo w/cad. The breast tissue is heterogeneously dense. This may lower the sensitivity of mammography. There are benign appearing round calcifications bilaterally. There is no discrete abnormality. ASSESSMENT: Benign, BI-RAD 2 RECOMMENDATION: Routine screening mammogram of both breasts in 1 year.
== END | disposition home or self-care (01) ==
LOC: RADMAMWWP 12:36
PROVIDERS: ATTEND Obstetrics & Gynecology
DX: Z12.31 Encounter for screening mammogram for malignant neoplasm of breast (principal); Z78.0 Asymptomatic menopausal state
CPT/HCPCS: 77063; 77067

== ENCOUNTER → 2022-05-27 | Outpatient (CLI) | payer MEDICARE ==
[2022-05-27 15:07] LABS: Basophils # (A) 0.04 X 10*3/uL (0.00-0.10); Basophils % (A) 0.8 %; Eosinophils % (A) 6.3 %; HGB 12.3 g/dL (12.0-15.0); Immature Grans, Automated 0.2 %; Lymphocytes # (A) 1.16 X 10*3/uL (0.90-5.00); Lymphocytes % (A) 24.2 %; MCH 28.3 pg (27.0-32.0); MCHC 31.5 g/dL (32.0-37.0); MCV 89.9 fL (80.0-97.0); Mean Platelet Volume 11.3 fL (9.5-12.2); Monocytes # (A) 0.58 X 10*3/uL (0.20-1.00); Monocytes % (A) 12.1 %; NRBC Per 100 WBC 0 /100 WBCS (0.0-0.0); Neutrophils % (A) 56.4 %; Platelet Count 308 X 10*3/uL (140-440); RBC 4.34 X 10*6/uL (4.10-5.20); RDW 13.6 % (11.5-14.5); WBC 4.79 X 10*3/uL (4.50-10.00)
[2022-05-27 16:24] LABS: ALT 17 U/L (8-44); AST 27 U/L (13-35); African American GFR (CKD) 76.4 (60.0-200.0); Calcium 9.8 mg/dL (8.7-10.3); Non-African American GFR(CKD) 65.9 (60.0-200.0)
[2022-05-27 16:26] LABS: Erythrocyte Sedimentation Rate 8 mm/Hr (0-30)
[2022-05-27 16:46] LABS: C Reactive Protein <0.30 mg/dL (0.00-0.80)
== END | disposition home or self-care (01) ==
LOC: LABWHC1 10:37
PROVIDERS: ATTEND Internal Medicine Rheumatology
DX: M06.4 Inflammatory polyarthropathy (principal); M81.0 Age-related osteoporosis without current pathological fracture; Z79.01 Long term (current) use of anticoagulants
CPT/HCPCS: 36415; 82306; 82310; 82565; 84450; 84460; 84520; 85025; 85652; 86140

== ENCOUNTER 2022-06-15 08:22 | Day surgery (SDC) | payer MEDICARE ==
[~2022-06-15 08:22] MED LIST changes: -LIDOCAINE 1% 20 ML VIAL (10MG/ML) FOR IV START INTRADERMA PRN
[2022-06-15 09:05] VITALS: TEMP 97.1
[2022-06-15] MEDS ORDERED: LIDOCAINE 2% INJ 20 MG/ML (2 ML VIAL) ONE (09:36)
[2022-06-15] MEDS ORDERED: PROPOFOL 10 MG/ML 20 ML VIAL IV ONE (09:36)
--- NOTE | 2022-06-15 09:48 | P.PCN ---
Date of Procedure: 06/15/22 Procedure(s) Performed: BRIEF HISTORY: Patient is a 71-year-old, pleasant, 8 female scheduled for an upper endoscopy as a part of evaluation long-standing history of GERD of almost 20 years duration. Currently on Nexium 40 mg daily as well as Carafate and still remains symptomatic.. PROCEDURE PERFORMED: Esophagogastroduodenoscopy with biopsy. PREOPERATIVE DIAGNOSIS: Long-standing history of GERD. IV sedation per anesthesia. PROCEDURE: After informed consent was obtained, the patient was brought into the endoscopy unit. IV sedation was administered by Anesthesia under continuous monitoring. Initially the Olympus GIF-140 video endoscope was inserted into the mouth. Esophagus intubated without any difficulty. It was gradually advanced into the stomach and duodenum and carefully examined. The bulb and the second part of the duodenum appeared normal. The scope at this time was withdrawn to t he stomach, adequately insufflated with air, and upon careful examination, mucosa of the antrum, had mild gastritis and biopsies were done from this area. The body, cardia and the fundus appeared normal. The scope was then withdrawn into the esophagus. The GE junction was located at 39 cm from the incisors. The esophagus appeared normal. There were no erosions or ulcerations seen and the patient tolerated the procedure well. IMPRESSION: 1.. Normal-appearing esophagus with no evidence of esophagitis or Brantley's esophagus. 2. Mild antral gastritis. RECOMMENDATIONS: The findings of this examination were discussed with the patient as well as a family. She was advised to follow with the biopsy results. In the meantime she will continue with Nexium 40 mg daily and Carafate as needed..
[2022-06-15 10:05] VITALS: BP 114/75; PULSE 60; RESP 18
== END 2022-06-15 10:28 ==
LOC: ORWHC2ENDO 08:22
PROVIDERS: ATTEND Internal Medicine Gastroenterology
DX: K29.50 Unspecified chronic gastritis without bleeding (principal); K21.9 Gastro-esophageal reflux disease without esophagitis; I10 Essential (primary) hypertension; J44.9 Chronic obstructive pulmonary disease, unspecified; E07.9 Disorder of thyroid, unspecified; G47.33 Obstructive sleep apnea (adult) (pediatric); K50.90 Crohn's disease, unspecified, without complications; Z99.89 Dependence on other enabling machines and devices; Z79.899 Other long term (current) drug therapy; Z88.1 Allergy status to other antibiotic agents; Z88.2 Allergy status to sulfonamides; Z79.890 Hormone replacement therapy; Z79.84 Long term (current) use of oral hypoglycemic drugs
CPT/HCPCS: 88305; 43239; J2704; J2001

== ENCOUNTER → 2022-07-29 | Outpatient (CLI) | payer MEDICARE ==
--- NOTE | 2022-07-29 17:16 | P.SLEEP ---
History of Present Illness DATE: 07/29/2022 CONSULTATION/NEW PATIENT EVALUATION HISTORY OF PRESENT ILLNESS/SLEEP-WAKE EVALUATION: 71year old lady had been evaluated in the sleep center for possible obstructive sleep apnea hypopnea syndrome. Patient has history of obstructive sleep apnea since 2008. Full this years patient is on treatment with CPAP. Presently she is using her second CPAP unit. She is using it every night for the whole night. I checked CPAP unit CPAP pressure is 9 cm of water. Usage is 100% of nights, average 7.5 hours per night which is great compliance. Leak is 18 L/m which is acceptable range. Apnea hypopnea index is 0.8 which is normal. SLEEP SCHEDULE: Usually sleep schedule from 11 PM to 7:30 AM 7 days a week . FALLING ASLEEP: No problems with falling asleep, although patient agreed in bedroom. DURING SLEEP: Patient sleeps well through the night, may wake up once with nocturia. No history of hypnogogical hallucinations, sleep paralysis, or cataplexy. DURING THE DAY/WAKE STATE: No significant excessive daytime sleepiness. [place] sleepiness scale is 3, which is normal. Patient doesn't take any naps. PAST MEDICAL HISTORY: Hypertension, COPD, arthritis, acid reflux, hypothyroidism, Crohn disease, sinuses problems. PAST SURGICAL HISTORY: Panproctocolectomy, tonsillectomy, baloon sinoplasty. MEDICATIONS: Carvedilol 3.125 mg twice a day, Levoxyl 125 g once a day, aspirin 81 mg once a day, esomeprazole 40 mg once a day, Evista 60 mg once a day. SOCIAL HISTORY: Negative for smoking or using alcohol. FAMILY HISTORY: Heart problems, stroke, thyroid problems. REVIEW OF SYSTEMS: No snoring, rear awakenings while using CPAP. No fevers. No double vision. No recent chest pain. No shortness of breath. No abdominal pain. No bleeding episodes. No blood in urine. No seizure episodes. PHYSICAL EXAMINATION: GENERAL: A pleasant patient without any distress. VITAL SIGNS: BP 131/77 , HR 65 , RR 16 , weight 149.8 pounds, height 5 foot 4 inches, body mass index 25.5 . HEENT: PERRLA, EOMI. Evaluation of oropharynx showed tongue protrudes midline, low position of soft palate Mallampati 3. NECK: Supple. No JVD. Thyroid is not palpable. 14-3/4 inches in circumference. LUNGS: Clear to percussion and to auscultation. Good air exchange. No wheezing or rhonchi. HEART: S1, S2 regular. No murmurs, gallops or rubs. ABDOMEN: Soft and nontender. Ileostoma. EXTREMITIES: No clubbing or cyanosis. TRANSPLANT NURSE PRACTITIONER: Awake, alert, and oriented x3. Cranial nerves 2 to 7 intact. There is no fasciculation or atrophy noted. No focal deficits observed. ASSESSMENT: 1. Obstructive sleep apnea hypopnea syndrome for about 13 years. Patient continued to use her CPAP equipment every night for the whole night, normal respiration on CPAP. 2. History of COPD. 3 history of Crohn disease, status post panproctocolectomy. Ileostoma 4. Acid reflux. 5 hypertension. 6. Arthritis. 7. Status post tonsillectomy. 8. Status post balloon sinoplasty. 9. Hypothyroidism. PLAN: 1. Continue to use CPAP equipment every night for the whole night 2. Sleep hygiene with regular sleep time for at least 7.5-8 hours. 3. Preferable position during sleep on the side. 4. No driving if patient feels any sleepiness. Patient is aware of civil and criminal liability for unsafe driving. 5. I will maintain prescription for all necessary CPAP supplies including mask tube filters. 6. Follow up visit in 6 months or earlier if patient has any problems. Thank you very much for referring this patient for consultation. Sincerely, Conor Genao MD, PhD, FAASM. Diplomat of [place] [employer], Sleep Medicine Board by [place] [employer] [place] [employer] Nutrition Scientist of [facility] [place] Past Medical History Past Medical History: COPD, GERD/Reflux, Hypertension, Osteoarthritis (OA), Sleep Apnea/CPAP/BIPAP, Thyroid Disorder Additional Past Medical History / Comment(s): Chrons with ileostomy. CPAP. History of Any Multi-Drug Resistant Organisms: None Reported Past Surgical History: Tonsillectomy Additional Past Surgical History / Comment(s): illiestomy, wrist surgery. D & C Past Anesthesia/Blood Transfusion Reactions: No Reported Reaction Past Psychological History: No Psychological Hx Reported Past Alcohol Use History: None Reported Past Drug Use History: None Reported Medications and Allergies Home Medications Medication Instructions Recorded Confirmed Type Ascorbic Acid [Vitamin C] 500 mg PO DAILY 06/05/18 06/15/22 History Calcium Carbonate/Vitamin D3 1 tab PO BID 06/05/18 06/15/22 History [Calcium 600-Vit D3 5 Mcg (200 Iu)] Cholecalciferol [Vitamin D3 (10 400 unit PO DAILY 06/05/18 06/15/22 History Mcg = 400 Iu)] Cyanocobalamin (Vitamin B-12) 1,000 mcg PO DAILY 06/05/18 06/15/22 History [Vitamin B-12] Levothyroxine Sodium [Synthroid] 125 mcg PO HS 06/05/18 06/15/22 History Magnesium Gluconate [Magonate] 500 mg PO DAILY 06/05/18 06/15/22 History [place]-3 Fatty Acids/Fish Oil [Fish 1 cap PO DAILY 06/05/18 06/15/22 History Oil 1,000 mg Softgel] Raloxifene [Evista] 60 mg PO QAM 06/05/18 06/15/22 History Vitamin B Complex 1 cap PO DAILY 06/05/18 06/15/22 History metroNIDAZOLE 0.75% CREAM 1 applic TOPICAL BID 06/05/18 06/15/22 History [Metrocream 0.75%] Aspirin [Naturita Aspirin EC] 81 mg PO DAILY 01/16/19 06/15/22 History Biotin 1,000 mcg PO DAILY 10/01/19 06/15/22 History Folic Acid 0.4 mg PO DAILY 10/01/19 06/15/22 History Glucosamine Sulfate 1,500 mg PO DAILY 10/01/19 06/15/22 History carvediloL [Coreg] 3.125 mg PO BID 10/01/19 06/15/22 History Esomeprazole Magnesium [NexIUM] 40 mg PO DAILY 06/11/22 06/15/22 History Sucralfate [Carafate] 1 gm PO BID 06/11/22 06/15/22 History Allergies Allergy/AdvReac Type Severity Reaction Status Date / Time ceftriaxone [From Rocephin] Allergy Rash/Hives Verified 06/15/22 08:47 cephalexin [From Keflex] Allergy Rash/Hives Verified 06/15/22 08:47 levofloxacin Allergy Rash/Hives Verified 06/15/22 08:47 nitrofurantoin Allergy Itching Verified 06/15/22 08:47 [From Macrobid] Sulfa (Sulfonamide Allergy Rash/Hives Verified 06/15/22 08:47 Antibiotics) Sleep Note - Sleep Note Sleep Note: Temperature: Pulse Rate: Respiratory Rate: Blood Pressure: SpO2: Height: Weight: BMI: Neck Circumference:
== END ==
LOC: SLEEP 13:39
PROVIDERS: ATTEND Internal Medicine
DX: G47.39 Other sleep apnea (principal); Z99.89 Dependence on other enabling machines and devices; J44.9 Chronic obstructive pulmonary disease, unspecified; K21.9 Gastro-esophageal reflux disease without esophagitis; I10 Essential (primary) hypertension; M19.90 Unspecified osteoarthritis, unspecified site; E03.9 Hypothyroidism, unspecified; Z79.890 Hormone replacement therapy; Z79.82 Long term (current) use of aspirin; Z87.19 Personal history of other diseases of the digestive system; Z90.49 Acquired absence of other specified parts of digestive tract; Z93.2 Ileostomy status; Z90.89 Acquired absence of other organs; Z98.890 Other specified postprocedural states
CPT/HCPCS: 99211

== ENCOUNTER → 2022-08-27 | Outpatient (CLI) | payer MEDICARE ==
--- NOTE | 2022-08-27 16:13 | US ---
EXAMINATION TYPE: US abdomen complete DATE OF EXAM: 08/27/2022 COMPARISON: CLINICAL HISTORY: R10.9 RT FLANK PAIN. Right side pain, npo TECHNIQUE: Multiple sonographic images of the abdomen are obtained. FINDINGS: EXAM MEASUREMENTS: Liver Length: 16.8 cm Gallbladder Wall: 0.1 cm CBD: 0.3 cm Spleen: 10.3 cm Right Kidney: 8.1 x 3.9 x 3.7 cm Left Kidney: 7.9 x 3.1 x 4.1 cm TUBE BENDER HAND NOTES: very limited due to bowel gas Pancreas: limited visualization of head and body Liver: wnl Gallbladder: wnl Evidence for sonographic Taveras's sign: neg CBD: wnl Spleen: limited due to bowel gas Right Kidney: Limited visualization due to bowel gas Left Kidney: Limited visualization due to bowel gas Upper IVC: wnl Abd Aorta: No AAA visualized at time of scan IMPRESSION: 1. No acute ABNORMALITY ABDOMEN. 2. EXAM IS LIMITATION DUE TO BOWEL GAS.
== END | disposition home or self-care (01) ==
LOC: RADUSWWP 14:53
PROVIDERS: ATTEND Internal Medicine
DX: R10.9 Unspecified abdominal pain (principal); R14.3 Flatulence
CPT/HCPCS: 76700

== ENCOUNTER → 2022-09-20 | Outpatient (CLI) | payer MEDICARE ==
--- NOTE | 2022-09-21 08:40 | MM ---
Reason for Exam: Screening (asymptomatic). Last screening mammogram was performed 12 month(s) ago. Patient History: Menarche at age 15. First Full-Term at age 21. Postmenopausal. Progesterone for 2 years from age 55 until age 57. Niece had breast cancer at or over age 50. Sister had breast cancer at or over age 50. Risk Values: Faye 5 year model risk: 3.0%. NCI Lifetime model risk: 8.7%. Prior Study Comparison: 07/13/2017 Bilateral Screening Mammogram, [facility]. 07/19/2018 Bilateral Screening Mammogram, [facility]. 07/31/2019 Bilateral Screening Mammogram, [facility]. 08/14/2020 Bilateral Screening Mammogram, [facility]. 09/17/2021 Bilateral Screening Mammogram, [facility]. Tissue Density: The breast tissue is heterogeneously dense. This may lower the sensitivity of mammography. Findings: Analyzed By CAD. There is no suspicious group of microcalcifications or new suspicious mass in either breast. Benign-appearing round calcifications bilaterally. No significant change from prior exams. Overall Assessment: Benign, BI-RAD 2 Management: Screening Mammogram of both breasts in 1 year. A clinical breast exam by your physician is recommended on an annual basis and results should be correlated with mammographic findings. Electronically signed and approved by: Ed Mcdermott D.O.
== END | disposition home or self-care (01) ==
LOC: RADMAMWWP 11:05
PROVIDERS: ATTEND Obstetrics & Gynecology
DX: Z12.31 Encounter for screening mammogram for malignant neoplasm of breast (principal); Z78.0 Asymptomatic menopausal state; Z80.3 Family history of malignant neoplasm of breast
CPT/HCPCS: 77063; 77067

== ENCOUNTER → 2023-02-02 | Outpatient (CLI) | payer MEDICARE ==
--- NOTE | 2023-02-02 16:41 | P.PN ---
Subjective DATE: 02/02/2023 FOLLOW UP VISIT. Patient with obstructive sleep apnea hypopnea syndrome return to sleep center for follow-up visit. Information from previous visit have been reviewed. Patient is using PAP equipment every night for the whole night, getting PAP supplies in time. The patient does not have significant problems with the mask, PAP unit and humidification. [place] sleepiness scale is 11, which is slightly increased. I checked information from PAP unit. PAP unit pressure 9 cm H2O. Usage is 95 % for more then 4 hours, average 7.1 hours per night. Leak is 17 l/m, which is in acceptable range. Apnea Hypopnea Index is 0.8, which is normal. MEDICATIONS:1. Levoxyl 125 g once a day 2. Carvedilol 3.125 mg once a day 3. Ditropan 4. Esomeprazole 40 mg once a day 5. Avista 60 mg once a day During physical exam: GENERAL: A pleasant patient without any distress. VITAL SIGNS: BP 129/78, HR 55, RR 16 , weight 153, temperature 98.6, oxygen saturation at room air 97 % . HEENT: PERRLA, EOMI.low position of soft palate, Mallapati 3 . NECK: Supple. No JVD. LUNGS: Clear to percussion and to auscultation. Good air exchange. No wheezing or rhonchi. HEART: S1, S2 regular. ABDOMEN: Soft and nontender.[] EXTREMITIES: No clubbing or cyanosis. CERTIFIED SOCIAL WORKERS IN HEALTH CARE: Awake, alert, and oriented x3. No focal deficit. Impressions: 1. Obstructive sleep apnea-hypopnea syndrome. Patient demonstrated great compliance with treatment, benefiting from treatment. 2. Hypothyroidism. 3. History of COPD. 4. Hypertension. 5. History of Crohn disease, status post colectomy, ileostomy. 6. History of arthritis. 7. Status post tonsillectomy. 8. Status post balloon sinoplasty. Plan: 1. Continue using PAP equipment every night for the whole night. 2. To change air filter at least 1-2 times per month. 3. PAP unit should stay lower then position of the head. 4. Advised patient to remove all remaining water from humidifier canister daily and make it dry after each usage. Refill canister with fresh distilled water before each usage. 5. Sleep hygiene with regular time in bed for at least 8 hours. 6. Precautions related to driving. No driving if feel any sleepiness. 7. I will maintain prescription for PAP supplies including mask, tube, filters. 8. Follow up visit in 6 months or earlier if patient has any problems. Thank you very much for allowing me to participate in the management of your patient. Conor Genao MD, PhD, FAASM. Diplomat of [place] [employer], Sleep Medicine Board by [place] [employer] Reporting Process Consultant of [facility] [place]
== END ==
LOC: SLEEP 14:01
PROVIDERS: ATTEND Internal Medicine
DX: G47.33 Obstructive sleep apnea (adult) (pediatric) (principal); J44.9 Chronic obstructive pulmonary disease, unspecified; I10 Essential (primary) hypertension; E03.9 Hypothyroidism, unspecified; K50.90 Crohn's disease, unspecified, without complications; Z79.899 Other long term (current) drug therapy; Z88.5 Allergy status to narcotic agent; Z88.2 Allergy status to sulfonamides
CPT/HCPCS: 99212

== ENCOUNTER 2023-02-05 20:54 | Inpatient (IN) | payer MEDICARE ==
[2023-02-05 21:13] VITALS: RESP 18
--- NOTE | 2023-02-05 22:50 | ED ---
Abdominal Pain HPI - General Chief Complaint: Abdominal Pain Stated Complaint: Bowel Obstruction Time Seen by Provider: 02/05/23 22:50 Source: patient, RN notes reviewed Mode of arrival: ambulatory Limitations: no limitations - History of Present Illness Initial Comments: Patient presents with concern for bowel obstruction. Patient has ileostomy secondary to Crohn's disease. Today she has had significant generalized abdominal pain. States she has history of obstruction and this feels similar. Patient states she has not had any output from her stoma since this morning. She denies fever, chills, nausea, vomiting. Patient's surgeon was from [facility] he's retired. She does follow with Dr. Crain. - Related Data Home Medications Medication Instructions Recorded Confirmed Ascorbic Acid [Vitamin C] 500 mg PO DAILY 06/05/18 06/15/22 Calcium Carbonate/Vitamin D3 1 tab PO BID 06/05/18 06/15/22 [Calcium 600-Vit D3 5 Mcg (200 Iu)] Cholecalciferol [Vitamin D3 (10 400 unit PO DAILY 06/05/18 06/15/22 Mcg = 400 Iu)] Cyanocobalamin (Vitamin B-12) 1,000 mcg PO DAILY 06/05/18 06/15/22 [Vitamin B-12] Levothyroxine Sodium [Synthroid] 125 mcg PO HS 06/05/18 06/15/22 Magnesium Gluconate [Magonate] 500 mg PO DAILY 06/05/18 06/15/22 [place]-3 Fatty Acids/Fish Oil [Fish 1 cap PO DAILY 06/05/18 06/15/22 Oil 1,000 mg Softgel] Raloxifene [Evista] 60 mg PO QAM 06/05/18 06/15/22 Vitamin B Complex 1 cap PO DAILY 06/05/18 06/15/22 metroNIDAZOLE 0.75% CREAM 1 applic TOPICAL BID 06/05/18 06/15/22 [Metrocream 0.75%] Aspirin [[place] Aspirin EC] 81 mg PO DAILY 01/16/19 06/15/22 Biotin 1,000 mcg PO DAILY 10/01/19 06/15/22 Folic Acid 0.4 mg PO DAILY 10/01/19 06/15/22 Glucosamine Sulfate 1,500 mg PO DAILY 10/01/19 06/15/22 carvediloL [Coreg] 3.125 mg PO BID 10/01/19 06/15/22 Esomeprazole Magnesium [NexIUM] 40 mg PO DAILY 06/11/22 06/15/22 Sucralfate [Carafate] 1 gm PO BID 06/11/22 06/15/22 Allergies Allergy/AdvReac Type Severity Reaction Status Date / Time ceftriaxone [From Rocephin] Allergy Rash/Hives Verified 06/15/22 08:47 cephalexin [From Keflex] Allergy Rash/Hives Verified 06/15/22 08:47 levofloxacin Allergy Rash/Hives Verified 06/15/22 08:47 nitrofurantoin Allergy Itching Verified 06/15/22 08:47 [From Macrobid] Sulfa (Sulfonamide Allergy Rash/Hives Verified 06/15/22 08:47 Antibiotics) Review of Systems ROS Statement: Those systems with pertinent positive or pertinent negative responses have been documented in the HPI. ROS Other: All systems not noted in ROS Statement are negative. Past Medical History Past Medical History: COPD, GERD/Reflux, Hypertension, Osteoarthritis (OA), S leep Apnea/CPAP/BIPAP, Thyroid Disorder Additional Past Medical History / Comment(s): Chrons with ileostomy. CPAP. History of Any Multi-Drug Resistant Organisms: None Reported Past Surgical History: Tonsillectomy Additional Past Surgical History / Comment(s): illiestomy, wrist surgery. D & C Past Anesthesia/Blood Transfusion Reactions: No Reported Reaction Past Psychological History: No Psychological Hx Reported Smoking Status: Never smoker Past Alcohol Use History: None Reported Past Drug Use History: None Reported General Exam - General Exam Comments Initial Comments: Visual Physical Exam Vital signs reviewed General: Well-appearing, nontoxic, no acute distress. Head: Normocephalic, atraumatic Eyes: PERRLA, EOMI ENT: Airway patent Chest: Nonlabored breathing Skin: No visual rash, normal skin tone Neuro: Alert and oriented 3 Musculoskeletal: No gross abnormalities Limitations: no limitations General appearance: alert, in no apparent distress Head exam: Present: atraumatic, normocephalic, normal inspection Eye exam: Present: normal appearance, PERRL, EOMI. Absent: scleral icterus, conjunctival injection, periorbital swelling Respiratory exam: Present: normal lung sounds bilaterally. Absent: respiratory distress, wheezes, rales, rhonchi, stridor Cardiovascular Exam: Present: regular rate, normal rhythm, normal heart sounds. Absent: systolic murmur, diastolic murmur, rubs, gallop, clicks GI/Abdominal exam: Present: soft, tenderness (generalized ), diminished bowel sounds, other (no stoma output). Absent: distended, guarding, rebound, rigid Neurological exam: Present: alert, oriented X3, CN II-XII intact Psychiatric exam: Present: normal affect, normal mood Skin exam: Present: warm, dry, intact, normal color. Absent: rash Course Vital Signs 02/05/23 02/06/23 21:09 02:30 Temperature 98.6 F Pulse Rate 74 76 Respiratory 18 18 Rate Blood Pressure 149/90 143/71 O2 Sat by Pulse 100 98 Oximetry Medical Decision Making - Medical Decision Making Was pt. sent in by a medical professional or institution (Dr. PA, HEALTH ASSISTANT, urgent care, hospital, or group home...) When possible be specific @ -No Did you speak to anyone other than the patient for history (EMS, parent, family, police, friend...)? What history was obtained from this source @ -No Did you review nursing and triage notes (agree or disagree)? Why? @ -I reviewed and agree with nursing and triage notes Were old charts reviewed (outside hosp., previous admission, EMS record, old EKG, old radiological studies, urgent care reports/EKG's, group home records)? Report findings @ -No old charts were reviewed Differential Diagnosis (chest pain, altered mental status, abdominal pain women, abdominal pain men, vaginal bleeding, weakness, fever, dyspnea, syncope, h eadache, dizziness, GI bleed, back pain, seizure, CVA, palpatations, mental health)? @ -Differential Abdominal Pain Women: Appendicitis, Cholecystitis, diverticulosis, ischemic bowel, pancreatitis, hepatitis, UTI, gastroenteritis, AAA, incarcerated hernia, bowel obstruction, constipation, inflammatory bowel, hepatitis, peptic ulcer disease, splenic infarction, perforated viscus, vulvitis, ovarian torsion, PID, kidney stone, placenta abruption, this is not meant to be an all-inclusive list EKG interpreted by me (3pts min.). @ -As above X-rays interpreted by me (1pt min.). @ -Yes, KUB x-ray shows dilated loops of small bowel concerning for small bowel obstruction CT interpreted by me (1pt min.). @ -Yes, concerning for small bowel obstruction U/S interpreted by me (1pt. min.). @ -None done What testing was considered but not performed or refused? (CT, X-rays, U/S, labs)? Why? @ -None What meds were considered but not given or refused? Why? @ -None Did you discuss the management of the patient with other professionals (pr ofessionals i.e. , PA, HEALTH ASSISTANT, lab, RT, psych nurse, clinical social worker, cut file clerk, teacher, banking services officer, skilled nursing case manager)? Give summary @ -No Was smoking cessation discussed for >3mins.? @ -No Was critical care preformed (if so, how long)? @ -No Were there social determinants of health that impacted care today? How? (Homelessness, low income, unemployed, alcoholism, drug addiction, transport ation, low edu. Level, literacy, decrease access to med. care, mcc, rehab)? @ -No Was there de-escalation of care discussed even if they declined (Discuss DNR or withdrawal of care, Hospice)? DNR status @ -No What co-morbidities impacted this encounter? (DM, HTN, Smoking, COPD, CAD, Cancer, CVA, ARF, Chemo, Hep., AIDS, mental health diagnosis, sleep apnea, morbid obesity)? @ -None Was patient admitted / discharged? Hospital course, mention meds given and route, prescriptions, significant lab abnormalities, going to OR and other pertinent info. @ -Patient presented with abdominal pain and decreased output from stoma. No nausea or vomiting. Patient appears to be in pain. She is hemodynamically stable.Laboratory studies obtained and are relatively unremarkable. CT is concerning for small bowel instruction. Case discussed with Dr. Jansen who accepts admission. Pain controlled patient is NPO she is admitted in stable condition Undiagnosed new problem with uncertain prognosis? @ -No Drug Therapy requiring intensive monitoring for toxicity (Heparin, Nitro, Insulin, Cardizem)? @ -No Were any procedures done? @ -No Diagnosis/symptom? @ -small bowel obstruction Acute, or Chronic, or Acute on Chronic? @ -acute Uncomplicated (without systemic symptoms) or Complicated (systemic symptoms)? @ -complicated Side effects of treatment? @ -No Exacerbation, Progression, or Severe Exacerbation? @ -No Poses a threat to life or bodily function? How? (Chest pain, USA, MD, pneumonia, PE, COPD, DKA, ARF, appy, cholecystitis, CVA, Diverticulitis, Homicidal, Suicidal, threat to staff... and all critical care pts) @ -No Dr. Gold is my attending - Lab Data Result diagrams: 02/05/23 23:39 02/05/23 23:39 Lab Results 02/05/23 02/05/23 02/05/23 Range/Units 23:39 23:39 23:39 WBC 8.1 (3.8-10.6) k/uL RBC 4.81 (3.80-5.40) m/uL Hgb 13.8 (11.4-16.0) gm/dL Hct 42.5 (34.0-46.0) % MCV 88.4 (80.0-100.0) fL MCH 28.7 (25.0-35.0) pg MCHC 32.5 (31.0-37.0) g/dL RDW 14.1 (11.5-15.5) % Plt Count 228 (150-450) k/uL MPV 8.0 Neutrophils % 71 % Lymphocytes % 18 % Monocytes % 6 % Eosinophils % 2 % Basophils % 0 % Neutrophils # 5.8 (1.3-7.7) k/uL Lymphocytes # 1.4 (1.0-4.8) k/uL Monocytes # 0.5 (0-1.0) k/uL Eosinophils # 0.2 (0-0.7) k/uL Basophils # 0.0 (0-0.2) k/uL Sodium 140 (137-145) mmol/L Potassium 4.9 (3.5-5.1) mmol/L Chloride 107 (98-107) mmol/L Carbon Dioxide 22 (22-30) mmol/L Anion Gap 11 mmol/L BUN 20 H (7-17) mg/dL Creatinine 0.80 (0.52-1.04) mg/dL Est GFR (CKD-EPI)AfAm 86 (>60 ml/min/1.73 sqM) Est GFR (CKD-EPI)NonAf 75 (>60 ml/min/1.73 sqM) Glucose 101 H (74-99) mg/dL Plasma Lactic Acid Artie 0.6 L (0.7-2.0) mmol/L Calcium 9.9 (8.4-10.2) mg/dL Total Bilirubin 1.1 (0.2-1.3) mg/dL AST 39 H (14-36) U/L ALT 22 (4-34) U/L Alkaline Phosphatase 88 (38-126) U/L Total Protein 7.4 (6.3-8.2) g/dL Albumin 4.5 (3.5-5.0) g/dL Lipase 322 H (23-300) U/L Disposition Clinical Impression: Small bowel obstruction Disposition: ADMITTED IP TO THIS HOSP Condition: Fair Referrals: Nena Gonzalez MD [Primary Care Provider] - 1-2 days
--- NOTE | 2023-02-05 23:20 | XR ---
EXAM: XR Abdomen, 1 View CLINICAL HISTORY: ITS.REASON XR Reason: pain rule out obstruction TECHNIQUE: Frontal supine view of the abdomen/pelvis. COMPARISON: 08/27/2022. FINDINGS: Gastrointestinal tract: Dilated loops of small bowel are noted centrally in the abdomen with air-fluid levels. Relative paucity of bowel gas in the expected course of the colon. Bones/joints: Total left hip prosthesis. Osteopenia. Other findings: There is extensive postsurgical change. IMPRESSION: 1. Dilated loops of small bowel centrally in the abdomen air-fluid levels raising concern for at least partial small bowel obstruction. 2. Small bowel follow-through material imaging is advised to follow-up as the findings could be on the basis of ileus. Further workup is therefore necessary. 3. Surgical consultation is advised <MYCVCSECTION> Communications: 02/05/23 23:23 Call Doctor Regarding Above results, called Dr. Lui on 02/05 23:23 (-04:00)
[2023-02-05 23:55] LABS: Basophils % (A) 0 %; Eosinophils # (A) 0.2 k/uL (0-0.7); Eosinophils % (A) 2 %; HCT 42.5 % (34.0-46.0); HGB 13.8 gm/dL (11.4-16.0); Lymphocytes # (A) 1.4 k/uL (1.0-4.8); Lymphocytes % (A) 18 %; MCH 28.7 pg (25.0-35.0); MCHC 32.5 g/dL (31.0-37.0); MCV 88.4 fL (80.0-100.0); Monocytes # (A) 0.5 k/uL (0-1.0); Monocytes % (A) 6 %; Neutrophils # (A) 5.8 k/uL (1.3-7.7); Neutrophils % (A) 71 %; Platelet Count 228 k/uL (150-450); RBC 4.81 m/uL (3.80-5.40); RDW 14.1 % (11.5-15.5); WBC 8.1 k/uL (3.8-10.6)
[2023-02-06 00:08] LABS: Albumin 4.5 g/dL (3.5-5.0); Calcium 9.9 mg/dL (8.4-10.2); Potassium 4.9 mmol/L (3.5-5.1); Total Bilirubin 1.1 mg/dL (0.2-1.3); Total Protein 7.4 g/dL (6.3-8.2)
[2023-02-06] MEDS ORDERED: HYDROmorphone 0.5 MG/0.5 ML SYRINGE IVP STA (02:02)
[2023-02-06] MEDS ORDERED: SODIUM CHLORIDE 0.9% 1,000 ML IV STA ×2 (02:02→03:07)
[2023-02-06] MEDS ORDERED: MORPHINE SULFATE 4 MG/ML SYRINGE IVP STA (02:36)
--- NOTE | 2023-02-06 02:47 | CT ---
EXAM: CT Abdomen and Pelvis With Intravenous Contrast CLINICAL HISTORY: ITS.REASON CT Reason: pain concern for obstruction TECHNIQUE: Axial computed tomography images of the abdomen and pelvis with intravenous contrast. CTDI is 21.6 mGy and DLP is 1217.4 mGy-cm. This CT exam was performed using one or more of the following dose reduction techniques: automated exposure control, adjustment of the mA and/or kV according to patient size, and/or use of iterative reconstruction technique. COMPARISON: KUB study of 02/05/2023. FINDINGS: Lung bases: Scarring and subsegmental atelectasis at the lung bases. Pleural space: Unremarkable. No pneumothorax. No pleural effusions. Heart: Heart is normal in size. Mediastinum: Small hiatal hernia and distal esophagitis. ABDOMEN: Liver: Fatty liver. Gallbladder and bile ducts: The gallbladder is unremarkable. No calcified stones. No ductal dilation. Pancreas: See below. Spleen: Spleen is normal in contour. Adrenals: The adrenal glands, the head, body, tail of the pancreas are unremarkable. Kidneys and ureters: Unremarkable. No renal calculus or hydronephrosis. Stomach and bowel: Dilated loops of small bowel containing fluid and fecal material noted extending to the right lower quadrant compatible with small bowel obstruction. Moderate quantity of ingested material in the stomach. A right lower quadrant ostomy site is noted. The patient appears to be status post colectomy. PELVIS: Appendix: See above. Bladder: The bladder is underdistended. Reproductive: Status post hysterectomy. ABDOMEN and PELVIS: Intraperitoneal space: Unremarkable. No free air. No significant fluid collection. Bones/joints: Markedly limited evaluation of the pelvic viscera due to artifact arising from left hip prosthesis. No acute fracture. No dislocation. Soft tissues: Unremarkable. Vasculature: Unremarkable. No abdominal aortic aneurysm. Lymph nodes: Unremarkable. No enlarged lymph nodes. Other findings: Surgical consultation is highly advised. IMPRESSION: 1. Dilated fluid and fecal filled loops of small bowel extending to the right lower quadrant region worrisome for distal small bowel obstruction. Surgical consultation is highly advised. 2. Right lower quadrant ostomy site is noted. 3. Extensive postsurgical changes. <MYCVCSECTION> Communications: 02/06/23 03:01 Call Doctor Regarding Above results, VR with Dr. Zhu on 02/06 03:01 (-04:00)
[2023-02-06] MEDS ORDERED: NALOXONE 0.4 MG/ML 1 ML VIAL IV PRN (03:06)
[2023-02-06] MEDS ORDERED: MORPHINE SULFATE 4 MG/ML SYRINGE IVP PRN (03:07)
[2023-02-06] MEDS ORDERED: ONDANSETRON 4 MG/2 ML VIAL IVP PRN (03:08)
--- NOTE | 2023-02-06 10:37 | P.GSHP ---
History of Present Illness H&P Date: 02/06/23 Patient is a 72-year-old female who presented to the emergency department with abdominal pain and lack of output from the ileostomy. She's had the ileostomy approximately 30 years after colectomy. She had normal ostomy output yesterday morning and then it stopped. She had one episode of this greater than 12 years ago which she felt was due to food that she ate. That was very fibrous food and she required a laparotomy. Yesterday she had some brussels sprouts and popcorn. She also recently started Ditropan. This morning she is noticed air and output in the ostomy appliance. Her pain is resolved. She wants to go home Past Medical History Past Medical History: COPD, GERD/Reflux, Hypertension, Osteoarthritis (OA), Sleep Apnea/CPAP/BIPAP, Thyroid Disorder Additional Past Medical History / Comment(s): Chrons with ileostomy. CPAP. History of Any Multi-Drug Resistant Organisms: None Reported Past Surgical History: Tonsillectomy Additional Past Surgical History / Comment(s): illiestomy, wrist surgery. D & C Past Anesthesia/Blood Transfusion Reactions: No Reported Reaction Past Psychological History: No Psychological Hx Reported Smoking Status: Never smoker Past Alcohol Use History: None Reported Past Drug Use History: None Reported Medications and Allergies Home Medications Medication Instructions Recorded Confirmed Type Ascorbic Acid [Vitamin C] 500 mg PO DAILY 06/05/18 06/15/22 History Calcium Carbonate/Vitamin D3 1 tab PO BID 06/05/18 06/15/22 History [Calcium 600-Vit D3 5 Mcg (200 Iu)] Cholecalciferol [Vitamin D3 (10 400 unit PO DAILY 06/05/18 06/15/22 History Mcg = 400 Iu)] Cyanocobalamin (Vitamin B-12) 1,000 mcg PO DAILY 06/05/18 06/15/22 History [Vitamin B-12] Levothyroxine Sodium [Synthroid] 125 mcg PO HS 06/05/18 06/15/22 History Magnesium Gluconate [Magonate] 500 mg PO DAILY 06/05/18 06/15/22 History [place]-3 Fatty Acids/Fish Oil [Fish 1 cap PO DAILY 06/05/18 06/15/22 History Oil 1,000 mg Softgel] Raloxifene [Evista] 60 mg PO QAM 06/05/18 06/15/22 History Vitamin B Complex 1 cap PO DAILY 06/05/18 06/15/22 History metroNIDAZOLE 0.75% CREAM 1 applic TOPICAL BID 06/05/18 06/15/22 History [Metrocream 0.75%] Aspirin [[place] Aspirin EC] 81 mg PO DAILY 01/16/19 06/15/22 History Biotin 1,000 mcg PO DAILY 10/01/19 06/15/22 History Folic Acid 0.4 mg PO DAILY 10/01/19 06/15/22 History Glucosamine Sulfate 1,500 mg PO DAILY 10/01/19 06/15/22 History carvediloL [Coreg] 3.125 mg PO BID 10/01/19 06/15/22 History Esomeprazole Magnesium [NexIUM] 40 mg PO DAILY 06/11/22 06/15/22 History Sucralfate [Carafate] 1 gm PO BID 06/11/22 06/15/22 History Allergies Allergy/AdvReac Type Severity Reaction Status Date / Time ceftriaxone [From Rocephin] Allergy Rash/Hives Verified 06/15/22 08:47 cephalexin [From Keflex] Allergy Rash/Hives Verified 06/15/22 08:47 levofloxacin Allergy Rash/Hives Verified 06/15/22 08:47 nitrofurantoin Allergy Itching Verified 06/15/22 08:47 [From Macrobid] Sulfa (Sulfonamide Allergy Rash/Hives Verified 06/15/22 08:47 Antibiotics) Surgical - Exam Osteopathic Statement: *. No significant issues noted on an osteopathic structural exam other than those noted in the History and Physical/Consult. Vital Signs Temp Pulse Resp BP Pulse Ox 98.6 F 74 18 149/90 100 02/05/23 21:09 02/05/23 21:09 02/05/23 21:09 02/05/23 21:09 02/05/23 21:09 - General well developed, well nourished, no distress - Eyes normal ocular movement - Neck trachea midline - Respiratory normal respiratory effort - Abdomen Ileostomy pink and viable. There is a lot of air and liquid stool in the ostomy appliance Abdomen: soft, non tender, bowel sounds - Psychiatric oriented to time, oriented to person, oriented to place, speech is normal, memory intact Results - Labs 02/05/23 23:39 02/05/23 23:39 Abnormal Lab Results - Last 24 Hours (Table) 02/05/23 02/05/23 Range/Units 23:39 23:39 BUN 20 H (7-17) mg/dL Glucose 101 H (74-99) mg/dL Plasma Lactic Acid Artie 0.6 L (0.7-2.0) mmol/L AST 39 H (14-36) U/L Lipase 322 H (23-300) U/L Diabetes panel 02/05/23 Range/Units 23:39 Sodium 140 (137-145) mmol/L Potassium 4.9 (3.5-5.1) mmol/L Chloride 107 (98-107) mmol/L Carbon Dioxide 22 (22-30) mmol/L BUN 20 H (7-17) mg/dL Creatinine 0.80 (0.52-1.04) mg/dL Glucose 101 H (74-99) mg/dL Calcium 9.9 (8.4-10.2) mg/dL AST 39 H (14-36) U/L ALT 22 (4-34) U/L Alkaline Phosphatase 88 (38-126) U/L Total Protein 7.4 (6.3-8.2) g/dL Albumin 4.5 (3.5-5.0) g/dL Calcium panel 02/05/23 Range/Units 23:39 Calcium 9.9 (8.4-10.2) mg/dL Albumin 4.5 (3.5-5.0) g/dL Pituitary panel 02/05/23 Range/Units 23:39 Sodium 140 (137-145) mmol/L Potassium 4.9 (3.5-5.1) mmol/L Chloride 107 (98-107) mmol/L Carbon Dioxide 22 (22-30) mmol/L BUN 20 H (7-17) mg/dL Creatinine 0.80 (0.52-1.04) mg/dL Glucose 101 H (74-99) mg/dL Calcium 9.9 (8.4-10.2) mg/dL Adrenal panel 02/05/23 Range/Units 23:39 Sodium 140 (137-145) mmol/L Potassium 4.9 (3.5-5.1) mmol/L Chloride 107 (98-107) mmol/L Carbon Dioxide 22 (22-30) mmol/L BUN 20 H (7-17) mg/dL Creatinine 0.80 (0.52-1.04) mg/dL Glucose 101 H (74-99) mg/dL Calcium 9.9 (8.4-10.2) mg/dL Total Bilirubin 1.1 (0.2-1.3) mg/dL AST 39 H (14-36) U/L ALT 22 (4-34) U/L Alkaline Phosphatase 88 (38-126) U/L Total Protein 7.4 (6.3-8.2) g/dL Albumin 4.5 (3.5-5.0) g/dL - Imaging CT scan - abdomen: report reviewed, image reviewed Assessment and Plan (1) Small bowel obstruction Current Visit: Yes Status: Acute Code(s): K56.609 - UNSP INTESTNL OBST, UNSP TO PARTIAL VERSUS COMPLETE OBST SNOMED Code(s): 150330475 Plan: Her obstructive symptoms appear to have resolved overnight. We'll start her on a diet and if she is able to tolerate that without recurrent pain the patient will be discharged this afternoon. Questions were encouraged and answered.
[2023-02-06 13:59] VITALS: BP 121/74; PULSE 63; TEMP 97.7
--- NOTE | 2023-02-06 15:33 | P.HPIM ---
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 Patient has an ileostomy. Patient presents to the hospital with complaints of generalized abdominal pain. Reports having minimal output from the ileostomy. Patient reports taking 1/2 a bottle of magnesium citrate last night around 6pm. Abdominal pain was not improved and patient came to the for evaluation with concern for bowel obstruction. Patient has had prior episodes of bowel obstruction requiring hospitalization and decompression with NG tube. Ileostomy is making more stool now mostly liquid. Patient did have an abdominal/pelvis CT done showing dilated fluid and fecal filled loops of small bowel extending to the right lower quadrant region worrisome for distal small bowel obstruction. Patient does not have an elevated white count, lactic acid not elevated. Kidney function showing BUN 20, creatinine 0.80. AST of 39. Lipase 322. Denies any fever/chills, denies nausea, vomiting. Denies shortness of breath. Patient is admitted under general surgery for the possible small bowl obstruction. Patient is now making stool from the ostomy and abdominal pain has improved. Patient has normoactive bowel sounds. Hemodynamically stable. Patient likely can discharge home later today if tolerating diet and follow up with primary provider Dr. Gonzalez in 1 to 2 days. REVIEW OF SYSTEMS: CONSTITUTIONAL: No fever, no malaise, no fatigue. HEENT: No recent visual problems or hearing problems. Denied any sore throat. CARDIOVASCULAR: No chest pain, orthopnea, PND, no palpitations, no syncope. PULMONARY: No shortness of breath, no cough, no hemoptysis. GASTROINTESTINAL: Reports abdominal pain and constipation NEUROLOGICAL: No headaches, no weakness, no numbness. HEMATOLOGICAL: Denies any bleeding or petechiae. GENITOURINARY: Denies any burning micturition, frequency, or urgency. MUSCULOSKELETAL/RHEUMATOLOGICAL: Denies any joint pain, swelling, or any muscle pain. ENDOCRINE: Denies any polyuria or polydipsia. The rest of the 14-point review of systems is negative. PHYSICAL EXAMINATION: GENERAL: The patient is alert and oriented x3, not in any acute distress. Well developed, well nourished. HEENT: Pupils are round and equally reacting to light. EOMI. No scleral icterus. No conjunctival pallor. Normocephalic, atraumatic. No pharyngeal erythema. No thyromegaly. CARDIOVASCULAR: S1 and S2 present. No murmurs, rubs, or gallops. PULMONARY: Chest is clear to auscultation, no wheezing or crackles. ABDOMEN: Soft, nontender, nondistended, normoactive bowel sounds. No palpable organomegaly. Ileostomy present RLQ with liquid stool with food particles. MUSCULOSKELETAL: No joint swelling or deformity. EXTREMITIES: No cyanosis, clubbing, or pedal edema. NEUROLOGICAL: Gross neurological examination did not reveal any focal deficits. SKIN: No rashes. Assessment and Plan Abdominal pain secondary to possible small bowel obstruction History of Chron's disease and bowel resection with ileostomy History of COPD with no acute exacerbation History of hypertension History of sleep apnea with CPAP Thyroid disorder GI prophylaxis Full Code Plan Resume home medications Patient is now making stool from ostomy and symptoms have improved Advanced diet per surgery recommendations if patient tolerates diet will be discharged home to follow up with primary care Thank you for this consultation The impression and plan of care has been dictated by Marilee Deluca Nurse Pr actitioner as directed. Dr. Ricarda MD I have performed a history and physical examination and medical decision making of this patient, discussed the same with the dictator, and agree with the dicta tors assessment and plan as written, documented as a scribe. Based on total visit time, I have performed more than 50% of this visit. Past Medical History Past Medical History: COPD, GERD/Reflux, Hypertension, Osteoarthritis (OA), Sleep Apnea/CPAP/BIPAP, Thyroid Disorder Additional Past Medical History / Comment(s): Chrons with ileostomy. CPAP. History of Any Multi-Drug Resistant Organisms: None Reported Past Surgical History: Tonsillectomy Additional Past Surgical History / Comment(s): illiestomy, wrist surgery. D & C Past Anesthesia/Blood Transfusion Reactions: No Reported Reaction Past Psychological History: No Psychological Hx Reported Smoking Status: Never smoker Past Alcohol Use History: None Reported Past Drug Use History: None Reported Medications and Allergies Home Medications Medication Instructions Recorded Confirmed Type Ascorbic Acid [Vitamin C] 500 mg PO DAILY 06/05/18 02/06/23 History Calcium Carbonate/Vitamin D3 1 tab PO BID 06/05/18 02/06/23 History [Calcium 600-Vit D3 5 Mcg (200 Iu)] Cholecalciferol [Vitamin D3 (10 400 unit PO DAILY 06/05/18 02/06/23 History Mcg = 400 Iu)] Cyanocobalamin (Vitamin B-12) 1,000 mcg PO DAILY 06/05/18 02/06/23 History [Vitamin B-12] Levothyroxine Sodium [Synthroid] 125 mcg PO HS 06/05/18 02/06/23 History Magnesium Gluconate [Magonate] 500 mg PO DAILY 06/05/18 02/06/23 History Raloxifene [Evista] 60 mg PO W/SUPPER 06/05/18 02/06/23 History Vitamin B Complex 1 cap PO DAILY 06/05/18 02/06/23 History Aspirin [[employer] Aspirin EC] 81 mg PO DAILY 01/16/19 02/06/23 History Biotin 5 mg PO DAILY 10/01/19 02/06/23 History Folic Acid 0.4 mg PO DAILY 10/01/19 02/06/23 History Glucosamine Sulfate 1,500 mg PO DAILY 10/01/19 02/06/23 History carvediloL [Coreg] 3.125 mg PO BID-W/MEALS 10/01/19 02/06/23 History Esomeprazole Magnesium [NexIUM] 40 mg PO DAILY 06/11/22 02/06/23 History Oxybutynin Chloride [Oxybutynin 10 mg PO W/SUPPER 02/06/23 02/06/23 History Chloride ER] Allergies Allergy/AdvReac Type Severity Reaction Status Date / Time ceftriaxone [From Rocephin] Allergy Rash/Hives Verified 02/06/23 12:50 cephalexin [From Keflex] Allergy Rash/Hives Verified 02/06/23 12:50 levofloxacin Allergy Rash/Hives Verified 02/06/23 12:50 nitrofurantoin Allergy Itching Verified 02/06/23 12:50 [From Macrobid] sulfamethoxazole Allergy Itching Verified 02/06/23 12:50 [From Bactrim] trimethoprim [From Bactrim] Allergy Itching Verified 02/06/23 12:50 Physical Exam Vitals: Vital Signs Temp Pulse Resp BP Pulse Ox 02/06/23 13:57 97.7 F 63 18 121/74 100 02/06/23 12:19 125/45 100 02/06/23 11:00 98.6 F 65 18 130/82 99 02/06/23 03:00 85 18 140/80 96 02/06/23 02:42 76 18 143/71 98 02/06/23 02:30 76 18 143/71 98 02/05/23 21:09 98.6 F 74 18 149/90 100 Results CBC & Chem 7: 02/05/23 23:39 02/05/23 23:39 Labs: Abnormal Lab Results - Last 24 Hours (Table) 02/05/23 02/05/23 Range/Units 23:39 23:39 BUN 20 H (7-17) mg/dL Glucose 101 H (74-99) mg/dL Plasma Lactic Acid Artie 0.6 L (0.7-2.0) mmol/L AST 39 H (14-36) U/L Lipase 322 H (23-300) U/L Assessment and Plan Time with Patient: Less than 30
--- NOTE | 2023-02-06 17:10 | P.DS ---
Providers Date of admission: 02/06/23 03:06 Expected date of discharge: 02/06/23 Attending physician: Saige Jansen Consults: 02/06/23 03:06 Consult Physician Routine Consulting Provider: Nena Gonzalez Consult Reason/Comments: medical management Do you want consulting provider notified?: Yes 02/06/23 09:40 Consult Physician Routine Consulting Provider: Shell Cintron Consult Reason/Comments: medical management Do you want consulting provider notified?: Already Contacted Primary care physician: Nena Gonzalez - Discharge Diagnosis(es) (1) Small bowel obstruction Status: Acute Hospital Course: Patient presented to the emergency department with abdominal pain and lack of ostomy output. She had one episode of this previously. She was given IV fluids and pain medication. The next morning the ostomy began working well and her pain had resolved. She was started on a diet which she tolerated and discharged home Patient Condition at Discharge: Good Plan - Discharge Summary New Discharge Prescriptions: Continue Cholecalciferol [Vitamin D3 (10 Mcg = 400 Iu)] 400 unit PO DAILY Ascorbic Acid [Vitamin C] 500 mg PO DAILY Magnesium Gluconate [Magonate] 500 mg PO DAILY Cyanocobalamin (Vitamin B-12) [Vitamin B-12] 1,000 mcg PO DAILY Vitamin B Complex 1 cap PO DAILY Levothyroxine Sodium [Synthroid] 125 mcg PO HS Raloxifene [Evista] 60 mg PO W/SUPPER Calcium Carbonate/Vitamin D3 [Calcium 600-Vit D3 5 Mcg (200 Iu)] 1 tab PO BID Aspirin [[employer] Aspirin EC] 81 mg PO DAILY Folic Acid 0.4 mg PO DAILY carvediloL [Coreg] 3.125 mg PO BID-W/MEALS Glucosamine Sulfate 1,500 mg PO DAILY Biotin 5 mg PO DAILY Oxybutynin Chloride [Oxybutynin Chloride ER] 10 mg PO W/SUPPER Esomeprazole Magnesium [NexIUM] 40 mg PO DAILY Discharge Medication List Ascorbic Acid [Vitamin C] 500 mg PO DAILY 06/05/18 [History] Calcium Carbonate/Vitamin D3 [Calcium 600-Vit D3 5 Mcg (200 Iu)] 1 tab PO BID 06/05/18 [History] Cholecalciferol [Vitamin D3 (10 Mcg = 400 Iu)] 400 unit PO DAILY 06/05/18 [History] Cyanocobalamin (Vitamin B-12) [Vitamin B-12] 1,000 mcg PO DAILY 06/05/18 [History] Levothyroxine Sodium [Synthroid] 125 mcg PO HS 06/05/18 [History] Magnesium Gluconate [Magonate] 500 mg PO DAILY 06/05/18 [History] Raloxifene [Evista] 60 mg PO W/SUPPER 06/05/18 [History] Vitamin B Complex 1 cap PO DAILY 06/05/18 [History] Aspirin [[employer] Aspirin EC] 81 mg PO DAILY 01/16/19 [History] Biotin 5 mg PO DAILY 10/01/19 [History] Folic Acid 0.4 mg PO DAILY 10/01/19 [History] Glucosamine Sulfate 1,500 mg PO DAILY 10/01/19 [History] carvediloL [Coreg] 3.125 mg PO BID-W/MEALS 10/01/19 [History] Esomeprazole Magnesium [NexIUM] 40 mg PO DAILY 06/11/22 [History] Oxybutynin Chloride [Oxybutynin Chloride ER] 10 mg PO W/SUPPER 02/06/23 [History] Follow up Appointment(s)/Referral(s): Nena Gonzalez MD [Primary Care Provider] - 1-2 days Discharge Disposition: HOME SELF-CARE
== END 2023-02-06 14:25 | disposition home or self-care (01) | DRG 389 ==
LOC: EC 20:54 → 4SSUR 02-06 03:06
PROVIDERS: ADMIT Surgery; ATTEND Surgery
DX: K56.609 Unspecified intestinal obstruction, unspecified as to partial versus complete obstruction (principal); K50.90 Crohn's disease, unspecified, without complications; E03.9 Hypothyroidism, unspecified; J44.9 Chronic obstructive pulmonary disease, unspecified; Z93.2 Ileostomy status; K21.9 Gastro-esophageal reflux disease without esophagitis; I10 Essential (primary) hypertension; M19.90 Unspecified osteoarthritis, unspecified site; G47.30 Sleep apnea, unspecified; Z79.82 Long term (current) use of aspirin; Z79.890 Hormone replacement therapy; Z79.899 Other long term (current) drug therapy; Z96.642 Presence of left artificial hip joint; Z88.2 Allergy status to sulfonamides; Z88.1 Allergy status to other antibiotic agents; Z88.8 Allergy status to other drugs, medicaments and biological substances
CPT/HCPCS: 36415; 74018; 74177; 80053; 83605; 83690; 85025; 96361; 96374; 99285

== ENCOUNTER → 2023-04-25 | Outpatient (CLI) | payer MEDICARE ==
--- NOTE | 2023-04-25 14:32 | XR ---
EXAMINATION TYPE: XR wrist complete RT DATE OF EXAM: 04/25/2023 2:14 PM INDICATION: Patient age:Female; 72 years old; Reason for study: M25.531; COMPARISON: None TECHNIQUE: right wrist was examined in the. Frontal, navicular, lateral, and oblique. FINDINGS: Multifocal degeneration changes throughout the joints of the hand. No acute osseous patholo gy, joint dislocation, or joint effusion. No evidence of any soft tissue swelling is seen. IMPRESSION: 1. No acute osseous pathology. 2. Mild multifocal osteoarthritis changes of the joints of the hand.
--- NOTE | 2023-04-26 10:31 | BD ---
EXAMINATION TYPE: Axial Bone Density DATE OF EXAM: 04/25/2023 CLINICAL HISTORY: 72 years old Female. ICD-10 CODE: M80.00XD Height: 63.25 Weight: 145.2 FRAX RISK QUESTIONS: Alcohol (3 or more units per day): no Family History (Parent hip fracture): mother and father Glucocorticoids (More than 3mos): no History of Fracture in Adulthood: yes, wrist, hip, Secondary Osteoporosis: 1. Type 1 Diabetes: no 2. Hyperthyroidism: no 3. Menopause before 45: no 4. Malnutrition: no 5. Chronic liver disease: no Rheumatoid Arthritis: no Current Tobacco Use: no RISK FACTORS HISTORY OF: Hip Fracture (Right/Left): yes. Lt hip When: 2020 Spine Fracture: no When: History of Wrist Fracture: Lt Wrist When: 2006 Surgery to Spine/Hip(right/left)/Wrist (right/left): Lt Hip, Lt Wrist Family History of Osteoporosis: mother Active: no Diet low in dairy products/other sources of calcium: yes Postmenopausal woman: yes Take estrogen and/or progesterone medications: no Lost more than 2 inches in height since high school: yes Frequent falls: no Poor Health: no Hyperparathyroidism: no Adrenal Insufficiency: no MEDICATIONS: Prednisone or other steroids: no Thyroid Medications: Levothyroxin How Long: Past 10 years Osteoporosis Medications: Evista How Long: past 10 years Additional Medications: Levoxyl, Evista, Calcium, Vit D, Magnesium, Folic Acid Reflux Meds, Additional History: EXAM MEASUREMENTS: Bone mineral densitometry was performed using the [employer] System. Bone mineral density as measured about the Lumbar spine is: ----- L1-L4(G/cm2): 1.017 T Score Values are as follows: ----- L1: -2.0 ----- L2: -1.3 ----- L3: -0.9 ----- L4: -1.2 ----- L1-L4: -1.4 Z Score Values are as follows: ----- L1: -0.4 ----- L2: 0.4 ----- L3: 0.8 ----- L4: 0.4 ----- L1-L4: 0.3 Bone mineral density has: decreased -8.3 % since study of: 04/20/2021 Bone mineral density about the L hip (g/cm2): 0.747 T Score values are as follows: -----L Neck: -1.8 -----L Total: -2.1 Z Score values are as follows: -----L Neck: -0.1 -----L Total: -0.6 Bone mineral density has: decreased -2.6 % since study of: 04/20/2021 FRAX%s: The graph provided illustrates a 27.4% chance for a major osteoporotic fx and a 8.3% chance f or the hips probability for fx in 10 years time. IMPRESSION: Osteopenia (T Score between -2.5 and -1). There is slightly increased risk of fracture and the patient may be considered for treatment. Re-Screen 2-5 years. NOTE: T-SCORE=SD OF THE YOUNG ADULT MEAN.
== END | disposition home or self-care (01) ==
LOC: RADBDWWP 12:56
PROVIDERS: ATTEND Internal Medicine Rheumatology
DX: M80.00XD Age-related osteoporosis with current pathological fracture, unspecified site, subsequent encounter for fracture with routine healing (principal); S72.002D Fracture of unspecified part of neck of left femur, subsequent encounter for closed fracture with routine healing; M85.89 Other specified disorders of bone density and structure, multiple sites
CPT/HCPCS: 77080

== ENCOUNTER → 2023-05-05 | Outpatient (CLI) | payer MEDICARE ==
--- NOTE | 2023-05-05 20:40 | CT ---
EXAMINATION TYPE: CT sinus wo con DATE OF EXAM: 05/05/2023 COMPARISON: None HISTORY: sinus congestion, dizziness, tooth aches CT DLP: 1064.5 mGycm CONTRAST: 0 mL of Isovue 300 The paranasal sinuses are examined in the axial plane at 2 mm thick sections. Reconstructed images i n the coronal plane were obtained. There is dental amalgam scatter artifact Is a small retention cyst within the right maxillary sinus. There is a small retention cyst in the p osterior left ethmoid air cell. Parathyroidectomies are present Prior uncinectomies are present. The sphenoid sinuses are clear. The frontal sinuses are clear. The septum is evaluated. There is septal deviation to the left. The ostiomeatal units are patent. IMPRESSIONS: 1. Mild mucosal thickening posterior left ethmoid air cell and the right maxillary sinus. 2. Postsurgical changes within the paranasal sinuses discussed above
== END | disposition home or self-care (01) ==
LOC: RADCTMAIN 11:54
PROVIDERS: ATTEND Internal Medicine
DX: J01.90 Acute sinusitis, unspecified (principal); J34.89 Other specified disorders of nose and nasal sinuses; R42 Dizziness and giddiness; R09.81 Nasal congestion; Z98.890 Other specified postprocedural states
CPT/HCPCS: 70486

== ENCOUNTER 2023-05-22 08:50 | Inpatient (IN) | payer MEDICARE ==
[2023-05-22] MEDS ORDERED: SODIUM CHLORIDE 0.9% 500 ML 500 ML IV ONE (09:20)
[2023-05-22] MEDS ORDERED: HYDROmorphone 0.5 MG/0.5 ML SYRINGE IVP STA (09:20)
--- NOTE | 2023-05-22 09:23 | ED ---
Abdominal Pain HPI - General Chief Complaint: Abdominal Pain Stated Complaint: Possible bowel blockage Time Seen by Provider: 05/22/23 09:04 Source: patient, family, RN notes reviewed, old records reviewed Mode of arrival: ambulatory Limitations: no limitations - History of Present Illness Initial Comments: 72-year-old female presents to the emergency room with complaints of abdominal pain and cramping since this morning. States decreased output in her ileostomy for the past couple hours. She is having nausea with belching but no vomiting. Denies fevers. States last ate last night. Did have a couple of minutes this morning. Does have history of COPD, hypertension, Crohn's disease, ileostomy since 1991. MD Complaint: abdominal pain -: hour(s) (5) Location: diffuse Severity scale (1-10): 9 Quality: cramping Consistency: constant Improves With: nothing Context: other (Ileostomy for Crohn's disease) Associated Symptoms: nausea, other (belching) - Related Data Patient : No Home Medications Medication Instructions Recorded Confirmed Ascorbic Acid [Vitamin C] 500 mg PO DAILY 06/05/18 02/06/23 Calcium Carbonate/Vitamin D3 1 tab PO BID 06/05/18 02/06/23 [Calcium 600-Vit D3 5 Mcg (200 Iu)] Cholecalciferol [Vitamin D3 (10 400 unit PO DAILY 06/05/18 02/06/23 Mcg = 400 Iu)] Cyanocobalamin (Vitamin B-12) 1,000 mcg PO DAILY 06/05/18 02/06/23 [Vitamin B-12] Levothyroxine Sodium [Synthroid] 125 mcg PO HS 06/05/18 02/06/23 Magnesium Gluconate [Magonate] 500 mg PO DAILY 06/05/18 02/06/23 Raloxifene [Evista] 60 mg PO W/SUPPER 06/05/18 02/06/23 Vitamin B Complex 1 cap PO DAILY 06/05/18 02/06/23 Aspirin [Mobile Aspirin EC] 81 mg PO DAILY 01/16/19 02/06/23 Biotin 5 mg PO DAILY 10/01/19 02/06/23 Folic Acid 0.4 mg PO DAILY 10/01/19 02/06/23 Glucosamine Sulfate 1,500 mg PO DAILY 10/01/19 02/06/23 carvediloL [Coreg] 3.125 mg PO BID-W/MEALS 10/01/19 02/06/23 Esomeprazole Magnesium [NexIUM] 40 mg PO DAILY 06/11/22 02/06/23 Oxybutynin Chloride [oxyBUTYnin 10 mg PO W/SUPPER 02/06/23 02/06/23 chloride ER] Allergies Allergy/AdvReac Type Severity Reaction Status Date / Time ceftriaxone [From Rocephin] Allergy Rash/Hives Verified 05/22/23 08:56 cephalexin [From Keflex] Allergy Rash/Hives Verified 05/22/23 08:56 levofloxacin Allergy Rash/Hives Verified 05/22/23 08:56 nitrofurantoin Allergy Itching Verified 05/22/23 08:56 [From Macrobid] sulfamethoxazole Allergy Itching Verified 05/22/23 08:56 [From Bactrim] trimethoprim [From Bactrim] Allergy Itching Verified 05/22/23 08:56 Review of Systems ROS Statement: Those systems with pertinent positive or pertinent negative responses have been documented in the HPI. ROS Other: All systems not noted in ROS Statement are negative. Past Medical History Past Medical History: COPD, GERD/Reflux, Hypertension, Osteoarthritis (OA), Sleep Apnea/CPAP/BIPAP, Thyroid Disorder Additional Past Medical History / Comment(s): Chrons with ileostomy. CPAP. History of Any Multi-Drug Resistant Organisms: None Reported Past Surgical History: Tonsillectomy Additional Past Surgical History / Comment(s): illiestomy, wrist surgery. D & C Past Anesthesia/Blood Transfusion Reactions: No Reported Reaction Past Psychological History: No Psychological Hx Reported Smoking Status: Never smoker Past Alcohol Use History: None Reported Past Drug Use History: None Reported General Exam Limitations: no limitations General appearance: alert, in no apparent distress Head exam: Present: atraumatic Eye exam: Present: normal appearance. Absent: scleral icterus, conjunctival i njection, periorbital swelling Respiratory exam: Present: normal lung sounds bilaterally. Absent: respiratory distress, accessory muscle use Cardiovascular Exam: Present: regular rate, normal heart sounds GI/Abdominal exam: Present: soft, tenderness (diffuse), other (ileostomy with brown stool, no bleeding). Absent: distended, guarding, rebound, rigid Extremities exam: Present: normal capillary refill. Absent: pedal edema Neurological exam: Present: alert, oriented X3 Psychiatric exam: Present: normal affect, normal mood Skin exam: Present: warm, dry, normal color. Absent: cyanosis, diaphoretic, petechiae Course Vital Signs 05/22/23 05/22/23 08:53 10:57 Temperature 98.4 F Pulse Rate 74 70 Respiratory 18 18 Rate Blood Pressure 147/90 139/85 O2 Sat by Pulse 98 95 Oximetry Medical Decision Making - Medical Decision Making Was pt. sent in by a medical professional or institution (, PA, ACID REMOVER, urgent care, hospital, or [facility]...) When possible be specific @ -[No] Did you speak to anyone other than the patient for history (EMS, parent, family, police, friend...)? What history was obtained from this source @ -[No] Did you review nursing and triage notes (agree or disagree)? Why? @ -[I reviewed and agree with nursing and triage notes] Were old charts reviewed (outside hosp., previous admission, EMS record, old EKG, old radiological studies, urgent care reports/EKG's, [facility] records)? Report findings @ -Previous admission for same 02/05/2023, surgical consultation notes 02/05/2023 Differential Diagnosis (chest pain, altered mental status, abdominal pain women, abdominal pain men, vaginal bleeding, weakness, fever, dyspnea, syncope, headache, dizziness, GI bleed, back pain, seizure, CVA, palpatations, mental health, musculoskeletal)? @ -Differential Abdominal Pain Women: Appendicitis, Cholecystitis, diverticulosis, ischemic bowel, pancreatitis, hepatitis, UTI, gastroenteritis, AAA, incarcerated hernia, bowel obstruction, constipation, inflammatory bowel, hepatitis, peptic ulcer disease, splenic infarction, perforated viscus, vulvitis, ovarian torsion, PID, kidney stone, placenta abruption, this is not meant to be an all-inclusive list EKG interpreted by me (3pts min.). @ -n/a X-rays interpreted by me (1pt min.). @ -[None done] CT interpreted by me (1pt min.). @ -yes CT interpreted by me shows dilated loops of bowel concerning for i ntestinal obstruction. U/S interpreted by me (1pt. min.). @ -[None done] What testing was considered but not performed or refused? (CT, X-rays, U/S, labs)? Why? @ -[None] What meds were considered but not given or refused? Why? @ -[None] Did you discuss the management of the patient with other professionals (professionals i.e. , PA, ACID REMOVER, lab, RT, psych nurse, case management social worker, clinical haematologist, teacher, business development officer, shoe parts caser)? Give summary @ -Spoke with Dr. Baldwin surgery recommended admission, NG tube and inflammatory markers Was smoking cessation discussed for >3mins.? @ -[No] Was critical care preformed (if so, how long)? @ -[No] Were there social determinants of health that impacted care today? How? (Homelessness, low income, unemployed, alcoholism, drug addiction, transportation, low edu. Level, literacy, decrease access to med. care, senior living, rehab)? @ -[No] Was there de-escalation of care discussed even if they declined (Discuss DNR or withdrawal of care, Hospice)? DNR status @ -[No] What co-morbidities impacted this encounter? (DM, HTN, Smoking, COPD, CAD, Cancer, CVA, ARF, Chemo, Hep., AIDS, mental health diagnosis, sleep apnea, mor bid obesity)? @ -History of COPD, GERD, hypertension, osteoarthritis, sleep apnea, Crohn's disease with ileostomy Was patient admitted / discharged? Hospital course, mention meds given and route, prescriptions, significant lab abnormalities, going to OR and other pertinent info. @ -Admitted 72-year-old female presents to the emergency room with complaints of abdominal pain and cramping since this morning. States decreased output in her ileostomy for the past couple hours. She is having nausea with belching but no vomiting. Denies fevers. States last ate last night. Did have a couple of minutes this morning. Does have history of COPD, hypertension, Crohn's disease, ileostomy since 1991. On physical exam ileostomy with brown stool and a lot of air within the ostomy bag. Abdomen is soft, tender diffusely and nondistended. Medical records were reviewed patient's admission on 02/05/2023 with similar symptoms. She was seen by Dr. Jansen and notes state her symptoms had resolved overnight. No surgical intervention. CT interpreted by me shows dilated loops of bowel concerning for intestinal obstruction. Radiologist's interpretation status post colectomy with right lower quadrant ostomy. Dilated loops of bowel measuring up to 3.5 cm with distal fecalization compatible with small bowel obstruction. Labs show mild leukocytosis. Lactic acid negative at 0.9. I spoke with Dr. Baldwin surgery who recommended NG tube, inflammatory markers and admit to medicine. He will consult. Dr. Gonzalez notified of admission. Patient agreeable to admission. Case discussed with Dr. Moscoso Undiagnosed new problem with uncertain prognosis? @ -[No] Drug Therapy requiring intensive monitoring for toxicity (Heparin, Nitro, Insulin, Cardizem)? @ -[No] Were any procedures done? @ -[No] Diagnosis/symptom? @ -Small bowel obstruction Acute, or Chronic, or Acute on Chronic? @ -Acute Uncomplicated (without systemic symptoms) or Complicated (systemic symptoms)? @ -Complicated Side effects of treatment? @ -[No] Exacerbation, Progression, or Severe Exacerbation? @ -[No] Poses a threat to life or bodily function? How? (Chest pain, [place], [place], pneumonia, PE, COPD, DKA, ARF, appy, cholecystitis, CVA, Diverticulitis, Homicidal, Suicidal, threat to staff... and all critical care pts) @ -Obstruction can result in perforation sepsis and - Lab Data Result diagrams: 05/22/23 09:20 05/22/23 09:20 Lab Results 05/22/23 05/22/23 05/22/23 Range/Units 09:20 09:20 09:20 WBC 11.5 H (3.8-10.6) k/uL RBC 5.13 (3.80-5.40) m/uL Hgb 14.8 (11.4-16.0) gm/dL Hct 46.0 (34.0-46.0) % MCV 89.8 (80.0-100.0) fL MCH 28.9 (25.0-35.0) pg MCHC 32.2 (31.0-37.0) g/dL RDW 13.5 (11.5-15.5) % Plt Count 239 (150-450) k/uL MPV 8.4 Neutrophils % 83 % Lymphocytes % 10 % Monocytes % 4 % Eosinophils % 1 % Basophils % 0 % Neutrophils # 9.6 H (1.3-7.7) k/uL Lymphocytes # 1.1 (1.0-4.8) k/uL Monocytes # 0.5 (0-1.0) k/uL Eosinophils # 0.1 (0-0.7) k/uL Basophils # 0.0 (0-0.2) k/uL Sodium 140 (137-145) mmol/L Potassium 4.7 (3.5-5.1) mmol/L Chloride 104 (98-107) mmol/L Carbon Dioxide 28 (22-30) mmol/L Anion Gap 8 mmol/L BUN 23 H (7-17) mg/dL Creatinine 0.84 (0.52-1.04) mg/dL Est GFR (CKD-EPI)AfAm 81 (>60 ml/min/1.73 sqM) Est GFR (CKD-EPI)NonAf 70 (>60 ml/min/1.73 sqM) Glucose 111 H (74-99) mg/dL Plasma Lactic Acid Artie 0.9 (0.7-2.0) mmol/L Calcium 10.2 (8.4-10.2) mg/dL Total Bilirubin 1.2 (0.2-1.3) mg/dL AST 36 (14-36) U/L ALT 24 (4-34) U/L Alkaline Phosphatase 106 (38-126) U/L Total Protein 7.7 (6.3-8.2) g/dL Albumin 4.6 (3.5-5.0) g/dL Amylase 100 (30-110) U/L Lipase 345 H (23-300) U/L Disposition Clinical Impression: Small bowel obstruction Disposition: ADMITTED IP TO THIS [facility] Referrals: Nena Gonzalez MD [Primary Care Provider] - 1-2 days Decision Date: 05/22/23 Decision Time: 10:50
[2023-05-22] MEDS ORDERED: MORPHINE SULFATE 4 MG/ML SYRINGE IVP STA ×2 (09:26→11:00)
[2023-05-22] MEDS ORDERED: ONDANSETRON 4 MG/2 ML VIAL IVP STA (09:27)
[2023-05-22 09:35] LABS: Basophils % (A) 0 %; Eosinophils # (A) 0.1 k/uL (0-0.7); Eosinophils % (A) 1 %; HGB 14.8 gm/dL (11.4-16.0); Lymphocytes # (A) 1.1 k/uL (1.0-4.8); Lymphocytes % (A) 10 %; MCH 28.9 pg (25.0-35.0); MCHC 32.2 g/dL (31.0-37.0); MCV 89.8 fL (80.0-100.0); Mean Platelet Volume 8.4; Monocytes # (A) 0.5 k/uL (0-1.0); Monocytes % (A) 4 %; Neutrophils # (A) 9.6 k/uL (1.3-7.7); Neutrophils % (A) 83 %; Platelet Count 239 k/uL (150-450); RBC 5.13 m/uL (3.80-5.40); RDW 13.5 % (11.5-15.5); WBC 11.5 k/uL (3.8-10.6)
[2023-05-22 09:39] LABS: ALT 24 U/L (4-34); AST 36 U/L (14-36); African American GFR (CKD) 81 (>60 ml/min/1.73 sqM); Albumin 4.6 g/dL (3.5-5.0); Alkaline Phosphatase 106 U/L (38-126); Amylase 100 U/L (30-110); Anion Gap 8 mmol/L; Blood Urea Nitrogen 23 mg/dL (7-17); Calcium 10.2 mg/dL (8.4-10.2); Carbon Dioxide 28 mmol/L (22-30); Chloride 104 mmol/L (98-107); Glucose 111 mg/dL (74-99); Lipase 345 U/L (23-300); Non-African American GFR(CKD) 70 (>60 ml/min/1.73 sqM); Potassium 4.7 mmol/L (3.5-5.1); Sodium 140 mmol/L (137-145); Total Bilirubin 1.2 mg/dL (0.2-1.3); Total Protein 7.7 g/dL (6.3-8.2)
--- NOTE | 2023-05-22 10:29 | CT ---
EXAMINATION TYPE: CT abdomen pelvis w con DATE OF EXAM: 05/22/2023 COMPARISON: 02/06/23 HISTORY: Possible obstruction, little output in ostomy CT DLP: 862.3 mGycm CONTRAST: CT scan of the abdomen and pelvis is performed without Oral Contrast and with IV Contrast, patient in jected with 100 mL of Isovue 300. FINDINGS: LUNG BASES-: No visible nodule. No infiltrate. LIVER/GB: No calcified gallstones. No space occupying hepatic lesion. Biliary tree is of normal ca liber. PANCREAS: No inflammation. No distinct mass. SPLEEN: No splenic enlargement. No lesion seen. ADRENALS: No nodule. No thickening. KIDNEYS/BLADDER: No hydronephrosis. No nephrolithiasis. No distinct renal mass. Urinary bladder g rossly unremarkable. BOWEL: The patient is status post colectomy with right lower quadrant ostomy. There are dilated loops of small bowel measuring up to 3.5 cm with distal fecalization noted compatible with small bowel obs truction. There are couple of normal lies bowel loops within the pelvis and right lower quadrant and this may reflect the location of transition. No evidence of free air or abscess. GENITAL ORGANS: No gross abnormality. LYMPH NODES: No greater than 1cm abdominal or pelvic lymph nodes are appreciated. AORTA: No significant abnormality. OSSEOUS STRUCTURES: No significant abnormality is seen. OTHER: Small amount of ascites about the liver edge. IMPRESSION: 1. The patient is status post colectomy with right lower quadrant ostomy. There are dilated loops of small bowel measuring up to 3.5 cm with distal fecalization noted compatible with small bowel obstruc tion.
[2023-05-22] MEDS ORDERED: MORPHINE SULFATE 4 MG/ML SYRINGE IV PRN (11:01)
[2023-05-22] MEDS ORDERED: NALOXONE 0.4 MG/ML 1 ML VIAL IV PRN (11:01)
[2023-05-22 11:33] LABS: Appearance,Urine Clear (Clear); Bilirubin,Urine Negative (Negative); Blood,Urine Negative (Negative); Color,Urine Yellow; Glucose,Urine (UA) Negative (Negative); Ketones,Urine Negative (Negative); Leukocyte Esterase,Urine Negative (Negative); Mucus,Urine Occasional /hpf; Nitrite,Urine Positive (Negative); PH, Urine 5.5 (5.0-8.0); Protein,Urine Trace (Negative); RBC,Urine 1 /hpf (0-5); Squamous Epithelial Cell,Urine 1 /hpf (0-4); Urobilinogen,Urine <2.0 mg/dL (<2.0); WBC,Urine 2 /hpf (0-5)
[2023-05-22 11:36] LABS: Specific Gravity,Urine >1.050 (1.001-1.035)
--- NOTE | 2023-05-22 12:22 | XR ---
EXAMINATION TYPE: XR chest 1V portable DATE OF EXAM: 05/22/2023 HISTORY: Shortness of breath. COMPARISON: 07/29/2021 TECHNIQUE: Single view of the chest is submitted. FINDINGS: Demonstrated are scattered senescent parenchymal change. NG tube is seen within several distal tip w ithin the stomach. There is no evidence for focal infiltrate. The heart is stable. Hilar and mediastinal structures are within normal limits. Degenerative changes are seen of the dorsal spine. IMPRESSION: 1. Chronic changes without evidence for acute pulmonary disease.
--- NOTE | 2023-05-22 14:36 | P.GSCN ---
History of Present Illness Consult date: 05/22/23 Reason for Consult: Acute Abdominal pain, nausea and emesis, Suspected small bowel obstruction, history of inflammatory bowel disease and previous subtotal colectomy with end ileostomy in 1991 History of present illness: Patient is a 72-year-old lady who presented to [facility] emergency department on 05/22/2023 with chief complaint of less than 24 hours of progressive diffuse abdominal pain, abrupt cessation of ileostomy output, progressive nausea and 1 bout of nonbloody emesis. She tells me that her symptoms were preceded by having too much popcorn. She was admitted to the same hospital this past January under identical circumstances, again after eating too much popcorn and Dr. Saige Jansen was consulted. Patient did well with nonoperative management, was discharged home with instructions to stick to a low residue diet. A nasogastric tube was placed and the patient tells me she is feeling moderately better now. Abdominal pains improved, nausea is resolving, ostomy has resumed copious function with liquid stool. She denies associated fever or chills, no reports of chest pain or shortness of breath. She underwent subtotal colectomy in 1991 with permanent end ileostomy for complicated inflammatory bowel disease of some kind. She follows with Dr. Crain, is not on any manner of maintenance treatment. She hasn't had any additional reported symptoms of inflammatory bowel disease since her resection. Patient's had a hemodynamically stable and afebrile appearance since presentation. Laboratory studies revealed a very mild leukocytosis with operative count 11.5, hemoglobin normal range of 14.8, platelet count normal range. MCV, MCH and RDW indices are within normal limits, no evidence of pain deficiency anemia. ESR was normal range at 1, C-reactive protein below detectable threshold.. Comprehensive metabolic panel normal on WITH the exception of a trivially elevated glucose at 111. Venous lactate normal range is 0.9. Liver function studies within normal limits. Amylase normal range at 100, lipase mildly elevated at 345. Analysis was negative for UTI. Chest x-ray shows clear lung denson, no evidence of pneumonia. Abdominal computed tomography scan was reviewed showing uniform dilation of the entirety of the small bowel, no pneumatosis, no free air, no free fluid. I don't appreciate a discrete transition point. There is fecal as aeration of the most distal aspect of the small bowel which we will see is not uncommon lady with chronic ileostomy patient's. Review of Systems All systems: negative - Constitutional Reports as per HPI Past Medical History Past Medical History: COPD, GERD/Reflux, Hypertension, Osteoarthritis (OA), Sleep Apnea/CPAP/BIPAP, Thyroid Disorder Additional Past Medical History / Comment(s): Chrons with ileostomy. CPAP. History of Any Multi-Drug Resistant Organisms: None Reported Past Surgical History: Tonsillectomy Additional Past Surgical History / Comment(s): illiestomy, wrist surgery. D & C Past Anesthesia/Blood Transfusion Reactions: No Reported Reaction Past Psychological History: No Psychological Hx Reported Smoking Status: Never smoker Past Alcohol Use History: None Reported Past Drug Use History: None Reported Medications and Allergies Home Medications Medication Instructions Recorded Confirmed Type Ascorbic Acid [Vitamin C] 500 mg PO DAILY 06/05/18 05/22/23 History Calcium Carbonate/Vitamin D3 1 tab PO BID 06/05/18 05/22/23 History [Calcium 600-Vit D3 5 Mcg (200 Iu)] Cholecalciferol [Vitamin D3 (10 400 unit PO DAILY 06/05/18 05/22/23 History Mcg = 400 Iu)] Cyanocobalamin (Vitamin B-12) 1,000 mcg PO DAILY 06/05/18 05/22/23 History [Vitamin B-12] Levothyroxine Sodium [Synthroid] 125 mcg PO HS 06/05/18 05/22/23 History Magnesium Gluconate [Magonate] 500 mg PO DAILY 06/05/18 05/22/23 History Raloxifene [Evista] 60 mg PO W/SUPPER 06/05/18 05/22/23 History Vitamin B Complex 1 cap PO DAILY 06/05/18 05/22/23 History Aspirin [[place] Aspirin EC] 81 mg PO DAILY 01/16/19 05/22/23 History Biotin 5 mg PO DAILY 10/01/19 05/22/23 History Folic Acid 0.4 mg PO DAILY 10/01/19 05/22/23 History Glucosamine Sulfate 1,500 mg PO DAILY 10/01/19 05/22/23 History carvediloL [Coreg] 3.125 mg PO BID-W/MEALS 10/01/19 05/22/23 History Esomeprazole Magnesium [NexIUM] 40 mg PO DAILY 06/11/22 05/22/23 History Allergies Allergy/AdvReac Type Severity Reaction Status Date / Time ceftriaxone [From Rocephin] Allergy Rash/Hives Verified 05/22/23 13:52 cephalexin [From Keflex] Allergy Rash/Hives Verified 05/22/23 13:52 levofloxacin Allergy Rash/Hives Verified 05/22/23 13:52 nitrofurantoin Allergy Itching Verified 05/22/23 13:52 [From Macrobid] sulfamethoxazole Allergy Itching Verified 05/22/23 13:52 [From Bactrim] trimethoprim [From Bactrim] Allergy Itching Verified 05/22/23 13:52 Surgical - Exam Osteopathic Statement: *. No significant issues noted on an osteopathic structural exam other than those noted in the History and Physical/Consult. Vital Signs Temp Pulse Resp BP Pulse Ox 98.4 F 74 18 147/90 98 05/22/23 08:53 05/22/23 08:53 05/22/23 08:53 05/22/23 08:53 05/22/23 08:53 - General well developed, well nourished, no distress - Eyes PERRL, normal ocular movement - ENT normal pinna, normal nares, normal mucosa, no hearing loss - Neck trachea midline - Respiratory normal respiratory effort, clear to auscultation - Cardiovascular Rhythm: regular - Abdomen Abdomen is soft, nontender palpation, no guarding rebound or distention. Abdominal exam is entirely benign. Ostomy shows resumption of function with liquid stool and gas. Bag is distended and on the edge of rupture under pressure. Abdomen: soft, non tender - Neurologic normal coordination, normal sensation - Psychiatric oriented to time, oriented to person, oriented to place, speech is normal, memory intact Results - Labs 05/22/23 09:20 05/22/23 09:20 Abnormal Lab Results - Last 24 Hours (Table) 05/22/23 05/22/23 05/22/23 Range/Units 09:20 09:20 11:17 WBC 11.5 H (3.8-10.6) k/uL Neutrophils # 9.6 H (1.3-7.7) k/uL BUN 23 H (7-17) mg/dL Glucose 111 H (74-99) mg/dL Lipase 345 H (23-300) U/L Ur Specific [place] >1.050 H (1.001-1.035) Urine Protein Trace H (Negative) Urine Nitrite Positive H (Negative) Urine Mucus Occasional H (None) /hpf Diabetes panel 05/22/23 Range/Units 09:20 Sodium 140 (137-145) mmol/L Potassium 4.7 (3.5-5.1) mmol/L Chloride 104 (98-107) mmol/L Carbon Dioxide 28 (22-30) mmol/L BUN 23 H (7-17) mg/dL Creatinine 0.84 (0.52-1.04) mg/dL Glucose 111 H (74-99) mg/dL Calcium 10.2 (8.4-10.2) mg/dL AST 36 (14-36) U/L ALT 24 (4-34) U/L Alkaline Phosphatase 106 (38-126) U/L Total Protein 7.7 (6.3-8.2) g/dL Albumin 4.6 (3.5-5.0) g/dL Calcium panel 05/22/23 Range/Units 09:20 Calcium 10.2 (8.4-10.2) mg/dL Albumin 4.6 (3.5-5.0) g/dL Pituitary panel 05/22/23 Range/Units 09:20 Sodium 140 (137-145) mmol/L Potassium 4.7 (3.5-5.1) mmol/L Chloride 104 (98-107) mmol/L Carbon Dioxide 28 (22-30) mmol/L BUN 23 H (7-17) mg/dL Creatinine 0.84 (0.52-1.04) mg/dL Glucose 111 H (74-99) mg/dL Calcium 10.2 (8.4-10.2) mg/dL Adrenal panel 05/22/23 Range/Units 09:20 Sodium 140 (137-145) mmol/L Potassium 4.7 (3.5-5.1) mmol/L Chloride 104 (98-107) mmol/L Carbon Dioxide 28 (22-30) mmol/L BUN 23 H (7-17) mg/dL Creatinine 0.84 (0.52-1.04) mg/dL Glucose 111 H (74-99) mg/dL Calcium 10.2 (8.4-10.2) mg/dL Total Bilirubin 1.2 (0.2-1.3) mg/dL AST 36 (14-36) U/L ALT 24 (4-34) U/L Alkaline Phosphatase 106 (38-126) U/L Total Protein 7.7 (6.3-8.2) g/dL Albumin 4.6 (3.5-5.0) g/dL - Imaging Abdominal x-ray: report reviewed, image reviewed CT scan - abdomen: report reviewed, image reviewed CT scan - chest: report reviewed, image reviewed Assessment and Plan Assessment: 72-year-old lady with presentation consistent with ileus versus partial obstruction. Resolving with nonoperative management. May relate to diet. I don't appreciate findings concerning for active inflammatory bowel disease on her CT, inflammatory markers are normal range, no significant abnormalities on CBC for CMP. No evidence of UTI, no evidence of pneumonia. History of some manner of inflammatory bowel disease with previous subtotal colectomy, would favor ulcerative colitis over Crohn's given her history. Asymptomatic. Plan: I would to continue with her current treatment plan for now with bowel rest and nasogastric decompression, IV fluids. If she shows continued improvement by tomorrow her nasogastric tube can be removed and she is can be started on clear liquids. I expect her to do well without operative interventions. She may be ready for discharge home by tomorrow afternoon. Would recommend sticking with a low residue diet going forward. Follow-up with primary care and medical gastroenterology 1-2 weeks post discharge. Time with Patient: Greater than 30
[2023-05-23 03:20] VITALS: RESP 16
--- NOTE | 2023-05-23 13:21 | P.PN ---
Subjective Progress Note Date: 05/23/23 Principal diagnosis: Small bowel obstruction on abdominal CT. 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 She is seen and examined at bedside. Doing quite well today. She denies any abdominal pain, is tolerated clear liquids, feeling hungry. Nasogastric tube canister hasn't been emptied since initial presentation, shows predominantly vanessa ar aspirate. Ostomy is functional of today. She denies abdominal pain nausea, vomiting, fever or chills. She's had a hemodynamically stable and afebrile appearance overnight. Objective - Vital Signs Vital signs: Vital Signs Temp 97.4 F L 05/23/23 08:00 Pulse 82 05/23/23 08:00 Resp 16 05/23/23 08:00 BP 117/79 05/23/23 08:00 Pulse Ox 97 05/23/23 08:00 FiO2 Intake & Output 05/22/23 05/23/23 05/23/23 18:59 06:59 18:59 Output Total 200 Balance -200 Weight 65.771 kg Output: Gastric Drainage 200 Other: Voiding Method Toilet Toilet # Voids 2 2 - Constitutional General appearance: Present: average body habitus, cooperative - EENT Eyes: Present: PERRLA ENT: Present: hearing grossly normal, NA/AT - Respiratory Respiratory: bilateral: CTA - Cardiovascular Rhythm: regular - Gastrointestinal Gastrointestinal Comment(s): Dimitri is soft, nontender to palpation, no guarding rebound or distention. Ostomy is functional, well-perfused, no evidence of parastomal hernia. No evidence of GI bleeding. - Integumentary Integumentary: Present: normal - Neurologic Neurologic: Present: CNII-XII intact - Musculoskeletal Musculoskeletal: Present: strength equal bilaterally - Psychiatric Psychiatric: Present: A&O x's 3, appropriate affect, intact judgment & insight - Labs CBC & Chem 7: 05/22/23 09:20 05/22/23 09:20 Assessment and Plan Assessment: 72-year-old lady with presentation consistent with ileus versus partial obstruction. Resolved with nonoperative management. May relate to diet. I don't appreciate findings concerning for active inflammatory bowel disease on her CT, inflammatory markers are normal range, no significant abnormalities on CBC for CMP. No evidence of UTI, no evidence of pneumonia. History of some manner of inflammatory bowel disease with previous subtotal col ectomy, would favor ulcerative colitis over Crohn's given her history. Asymptomatic. Plan: Nasogastric tube removed at bedside. Advance to soft diet. If no issues with tolerance by this afternoon she should be okay for discharge home from a surgical standpoint. Follow-up with primary care within 1 week. May follow up with Dr. Crain if she wishes. Time with Patient: Greater than 30
[2023-05-23 13:34] VITALS: BP 133/82; PULSE 85; TEMP 98.2
--- NOTE | 2023-05-23 17:04 | P.HPIM ---
History of Present Illness H&P Date: 05/23/23 Sarita Eisenberg, is a 72-year-old female who presented to [facility] emergency room with a chief complaint of abdominal pain and decreased output from her ileostomy. Patient was also complaining of nausea and belching. She was evaluated in the emergency room vital examination on presentation revealed a temperature of 98.4 pulse 74 respiration 18 blood pressure 147/90 pulse ox 98% on room air Laboratory data reveals a white blood count of 11.5 hemoglobin 14.8 platelet count 239 BUN 23 creatinine 0.84 Testing in the emergency room revealed computed tomography scan of the abdomen and pelvis done in the emergency room revealed evidence of dilated bowel loops of the small bowel measuring up to 3.5 cm with evidence of small bowel obstruction Patient was admitted to medical floor for further evaluation and treatment Past Medical History Past Medical History: COPD, GERD/Reflux, Hypertension, Osteoarthritis (OA), Sleep Apnea/CPAP/BIPAP, Thyroid Disorder Additional Past Medical History / Comment(s): Chrons with ileostomy. CPAP. History of Any Multi-Drug Resistant Organisms: None Reported Past Surgical History: Tonsillectomy Additional Past Surgical History / Comment(s): illiestomy, wrist surgery. D & C Past Anesthesia/Blood Transfusion Reactions: No Reported Reaction Past Psychological History: No Psychological Hx Reported Smoking Status: Never smoker Past Alcohol Use History: None Reported Past Drug Use History: None Reported Medications and Allergies Home Medications Medication Instructions Recorded Confirmed Type Ascorbic Acid [Vitamin C] 500 mg PO DAILY 06/05/18 05/22/23 History Calcium Carbonate/Vitamin D3 1 tab PO BID 06/05/18 05/22/23 History [Calcium 600-Vit D3 5 Mcg (200 Iu)] Cholecalciferol [Vitamin D3 (10 400 unit PO DAILY 06/05/18 05/22/23 History Mcg = 400 Iu)] Cyanocobalamin (Vitamin B-12) 1,000 mcg PO DAILY 06/05/18 05/22/23 History [Vitamin B-12] Levothyroxine Sodium [Synthroid] 125 mcg PO HS 06/05/18 05/22/23 History Magnesium Gluconate [Magonate] 500 mg PO DAILY 06/05/18 05/22/23 History Raloxifene [Evista] 60 mg PO W/SUPPER 06/05/18 05/22/23 History Vitamin B Complex 1 cap PO DAILY 06/05/18 05/22/23 History Aspirin [[place] Aspirin EC] 81 mg PO DAILY 01/16/19 05/22/23 History Biotin 5 mg PO DAILY 10/01/19 05/22/23 History Folic Acid 0.4 mg PO DAILY 10/01/19 05/22/23 History Glucosamine Sulfate 1,500 mg PO DAILY 10/01/19 05/22/23 History carvediloL [Coreg] 3.125 mg PO BID-W/MEALS 10/01/19 05/22/23 History Esomeprazole Magnesium [NexIUM] 40 mg PO DAILY 06/11/22 05/22/23 History Allergies Allergy/AdvReac Type Severity Reaction Status Date / Time ceftriaxone [From Rocephin] Allergy Rash/Hives Verified 05/22/23 13:52 cephalexin [From Keflex] Allergy Rash/Hives Verified 05/22/23 13:52 levofloxacin Allergy Rash/Hives Verified 05/22/23 13:52 nitrofurantoin Allergy Itching Verified 05/22/23 13:52 [From Macrobid] sulfamethoxazole Allergy Itching Verified 05/22/23 13:52 [From Bactrim] trimethoprim [From Bactrim] Allergy Itching Verified 05/22/23 13:52 Physical Exam Vitals: Vital Signs Temp Pulse Pulse Resp BP BP Pulse Ox 05/23/23 08:00 97.4 F L 82 16 117/79 97 05/23/23 03:11 98.5 F 82 16 94/53 96 05/22/23 18:55 99.8 F H 85 18 129/70 96 05/22/23 15:25 98.4 F 76 16 137/87 95 05/22/23 14:42 80 18 135/84 97 05/22/23 12:15 85 18 136/90 93 L Intake and Output 05/22/23 05/23/23 05/23/23 22:59 06:59 14:59 Output Total 200 Balance -200 Output: Gastric Drainage 200 Other: Voiding Method Toilet # Voids 2 2 Weight 65.771 kg In general patient is alert and oriented ?-3 in no distress HEENT head normocephalic and atraumatic Neck is supple no JVD no goiter no lymphadenopathy no carotid bruit Chest examination is clear to auscultation no crackles no wheezing Cardiac exam reveals regular heart sounds S1 and S2 no gallops no murmurs Abdomen is soft nontender no organomegaly with normal bowel sounds Extremity exam reveals no edema no cyanosis or clubbing Neurological examination reveals no gross focal deficits Results CBC & Chem 7: 05/22/23 09:20 05/22/23 09:20 Thrombosis Risk Factor Assmnt - Choose All That Apply Any of the Below Risk Factors Present?: Yes Each Factor Represents 1 point: Obesity (BMI >25) Other Risk Factors: Yes Each Risk Factor Represents 2 Points: Age 61-74 years Each Risk Factor Represents 3 Points: History of DVT/PE Thrombosis Risk Factor Assessment Total Risk Factor Score: 6 Thrombosis Risk Factor Assessment Level: High Risk Assessment and Plan Plan: Small bowel obstruction History of inflammatory bowel disease with history of subtotal colectomy Underlying history of hypertension Underlying history of hypothyroidism Underlying history of osteoarthritis Underlying history of osteopenia At this time patient is admitted to medical floor NG tube was initiated in the emergency room Surgical consultation requested Patient was started on IV fluid Will follow closely
--- NOTE | 2023-05-23 17:19 | P.DS ---
Providers Date of admission: 05/22/23 12:38 Expected date of discharge: 05/23/23 Attending physician: Nena Gonzalez Consults: 05/22/23 11:01 Consult Physician Routine Consulting Provider: Manpreet Baldwin Consult Reason/Comments: SBO Do you want consulting provider notified?: Already Contacted Primary care physician: Nena Gonzalez [facility] Course: Diagnosis on discharge: Small bowel obstruction History of inflammatory bowel disease with history of subtotal colectomy Underlying history of hypertension Underlying history of hypothyroidism Underlying history of osteoarthritis Underlying history of osteopenia Hospital course: Sarita Eisenberg, is a 72-year-old female who presented to [facility] emergency room with a chief complaint of abdominal pain and decreased output from her ileostomy. Patient was also complaining of nausea and belching. She was evaluated in the emergency room vital examination on presentation revealed a temperature of 98.4 pulse 74 respiration 18 blood pressure 147/90 pulse ox 98% on room air Laboratory data reveals a white blood count of 11.5 hemoglobin 14.8 platelet count 239 BUN 23 creatinine 0.84 Testing in the emergency room revealed computed tomography scan of the abdomen and pelvis done in the emergency room revealed evidence of dilated bowel loops of the small bowel measuring up to 3.5 cm with evidence of small bowel obstruction Patient was admitted to medical floor for further evaluation and treatment On 05/23/2023 patient was seen and examined on the medical floor she is alert and oriented 3 in no apparent distress patient is feeling better her abdominal pain has improved and there is more output from her ileostomy she was evaluated earlier by general surgery NG tube was discontinued and patient was started on soft diet. Recommendation were to discharge patient to home today if she is able to tolerate diet. Patient will be discharged home today Will follow in the office within 1 week Plan - Discharge Summary New Discharge Prescriptions: Continue Cholecalciferol [Vitamin D3 (10 Mcg = 400 Iu)] 400 unit PO DAILY Ascorbic Acid [Vitamin C] 500 mg PO DAILY Magnesium Gluconate [Magonate] 500 mg PO DAILY Cyanocobalamin (Vitamin B-12) [Vitamin B-12] 1,000 mcg PO DAILY Vitamin B Complex 1 cap PO DAILY Levothyroxine Sodium [Synthroid] 125 mcg PO HS Raloxifene [Evista] 60 mg PO W/SUPPER Calcium Carbonate/Vitamin D3 [Calcium 600-Vit D3 5 Mcg (200 Iu)] 1 tab PO BID Aspirin [[place] Aspirin EC] 81 mg PO DAILY Folic Acid 0.4 mg PO DAILY carvediloL [Coreg] 3.125 mg PO BID-W/MEALS Glucosamine Sulfate 1,500 mg PO DAILY Biotin 5 mg PO DAILY Esomeprazole Magnesium [NexIUM] 40 mg PO DAILY Discharge Medication List Ascorbic Acid [Vitamin C] 500 mg PO DAILY 06/05/18 [History] Calcium Carbonate/Vitamin D3 [Calcium 600-Vit D3 5 Mcg (200 Iu)] 1 tab PO BID 06/05/18 [History] Cholecalciferol [Vitamin D3 (10 Mcg = 400 Iu)] 400 unit PO DAILY 06/05/18 [History] Cyanocobalamin (Vitamin B-12) [Vitamin B-12] 1,000 mcg PO DAILY 06/05/18 [H istory] Levothyroxine Sodium [Synthroid] 125 mcg PO HS 06/05/18 [History] Magnesium Gluconate [Magonate] 500 mg PO DAILY 06/05/18 [History] Raloxifene [Evista] 60 mg PO W/SUPPER 06/05/18 [History] Vitamin B Complex 1 cap PO DAILY 06/05/18 [History] Aspirin [[place] Aspirin EC] 81 mg PO DAILY 01/16/19 [History] Biotin 5 mg PO DAILY 10/01/19 [History] Folic Acid 0.4 mg PO DAILY 10/01/19 [History] Glucosamine Sulfate 1,500 mg PO DAILY 10/01/19 [History] carvediloL [Coreg] 3.125 mg PO BID-W/MEALS 10/01/19 [History] Esomeprazole Magnesium [NexIUM] 40 mg PO DAILY 06/11/22 [History] Follow up Appointment(s)/Referral(s): Jacinda Crain MD [STAFF PHYSICIAN] - 1 Week Nena Gonzalez MD [Primary Care Provider] - 1-2 days Patient Instructions/Handouts: Bowel Obstruction (DC)
== END 2023-05-23 17:39 | disposition home or self-care (01) | DRG 389 ==
LOC: EC 08:50 → 4SSUR 12:38 → 6NMEDSUR 14:27
PROVIDERS: ADMIT Internal Medicine; ATTEND Internal Medicine
PROC: 0D9670Z Drainage of Stomach with Drainage Device, Via Natural or Artificial Opening (ICD-10-PCS; principal; 2023-05-22)
DX: K56.609 Unspecified intestinal obstruction, unspecified as to partial versus complete obstruction (principal); K50.90 Crohn's disease, unspecified, without complications; J44.9 Chronic obstructive pulmonary disease, unspecified; I10 Essential (primary) hypertension; E03.9 Hypothyroidism, unspecified; M19.90 Unspecified osteoarthritis, unspecified site; M85.80 Other specified disorders of bone density and structure, unspecified site; G47.30 Sleep apnea, unspecified; K21.9 Gastro-esophageal reflux disease without esophagitis; R73.9 Hyperglycemia, unspecified; Z93.2 Ileostomy status; Z90.49 Acquired absence of other specified parts of digestive tract; Z87.19 Personal history of other diseases of the digestive system; Z79.82 Long term (current) use of aspirin; Z79.890 Hormone replacement therapy; Z79.899 Other long term (current) drug therapy; Z88.3 Allergy status to other anti-infective agents; Z88.1 Allergy status to other antibiotic agents; Z88.8 Allergy status to other drugs, medicaments and biological substances
CPT/HCPCS: 36415; 71045; 74177; 80053; 81001; 82150; 83605; 83690; 85025; 85652; 86140; 96374; 96375; 96376; 99285

== ENCOUNTER 2023-06-04 13:03 | Emergency (ER) | payer MEDICARE ==
[2023-06-04 13:14] VITALS: BP 153/75; PULSE 67; RESP 20; TEMP 98.6
--- NOTE | 2023-06-04 14:36 | ED ---
General Adult HPI - General Chief complaint: Fall Stated complaint: tripped hit head on left side has a swollen bruise Time Seen by Provider: 06/04/23 14:29 Source: patient, RN notes reviewed Mode of arrival: ambulatory Limitations: no limitations - History of Present Illness Initial comments: 72-year-old female with no significant past medical history presents to the emergency department with a chief complaint of fall. Patient reports that she tripped and fell on cement prior to arrival. She reports that she fell on her left side. She denies loss of consciousness, anticoagulant use. She is complaining of a "bump side of her face." And left knee pain. She denies any numbness, tingling, weakness in any 70s. She did not take anything prior to arrival for her pain. She denies any dizziness, lightheadedness, dizziness, headache - Related Data Home Medications Medication Instructions Recorded Confirmed Ascorbic Acid [Vitamin C] 500 mg PO DAILY 06/05/18 05/22/23 Calcium Carbonate/Vitamin D3 1 tab PO BID 06/05/18 05/22/23 [Calcium 600-Vit D3 5 Mcg (200 Iu)] Cholecalciferol [Vitamin D3 (10 400 unit PO DAILY 06/05/18 05/22/23 Mcg = 400 Iu)] Cyanocobalamin (Vitamin B-12) 1,000 mcg PO DAILY 06/05/18 05/22/23 [Vitamin B-12] Levothyroxine Sodium [Synthroid] 125 mcg PO HS 06/05/18 05/22/23 Magnesium Gluconate [Magonate] 500 mg PO DAILY 06/05/18 05/22/23 Raloxifene [Evista] 60 mg PO W/SUPPER 06/05/18 05/22/23 Vitamin B Complex 1 cap PO DAILY 06/05/18 05/22/23 Aspirin [[place] Aspirin EC] 81 mg PO DAILY 01/16/19 05/22/23 Biotin 5 mg PO DAILY 10/01/19 05/22/23 Folic Acid 0.4 mg PO DAILY 10/01/19 05/22/23 Glucosamine Sulfate 1,500 mg PO DAILY 10/01/19 05/22/23 carvediloL [Coreg] 3.125 mg PO BID-W/MEALS 10/01/19 05/22/23 Esomeprazole Magnesium [NexIUM] 40 mg PO DAILY 06/11/22 05/22/23 Allergies Allergy/AdvReac Type Severity Reaction Status Date / Time ceftriaxone [From Rocephin] Allergy Rash/Hives Verified 06/04/23 13:14 cephalexin [From Keflex] Allergy Rash/Hives Verified 06/04/23 13:14 levofloxacin Allergy Rash/Hives Verified 06/04/23 13:14 nitrofurantoin Allergy Itching Verified 06/04/23 13:14 [From Macrobid] sulfamethoxazole Allergy Itching Verified 06/04/23 13:14 [From Bactrim] trimethoprim [From Bactrim] Allergy Itching Verified 06/04/23 13:14 Review of Systems ROS Statement: Those systems with pertinent positive or pertinent negative responses have been documented in the HPI. ROS Other: All systems not noted in ROS Statement are negative. Past Medical History Past Medical History: COPD, GERD/Reflux, Hypertension, Osteoarthritis (OA), Sleep Apnea/CPAP/BIPAP, Thyroid Disorder Additional Past Medical History / Comment(s): Chrons with ileostomy. CPAP. History of Any Multi-Drug Resistant Organisms: None Reported Past Surgical History: Tonsillectomy Additional Past Surgical History / Comment(s): ilestomy, wrist surgery. D & C Past Anesthesia/Blood Transfusion Reactions: No Reported Reaction Past Psychological History: No Psychological Hx Reported Smoking Status: Never smoker Past Alcohol Use History: None Reported Past Drug Use History: None Reported General Exam - General Exam Comments Initial Comments: General: Alert, in no acute distress Head: atraumatic normocephalic. Eyes PERRL, EOMI intact, mucous membranes moist, no erythema, ecchymosis. No pain with ocular movements. Respiratory: Lungs clear to auscultation bilaterally Cardiovascular: Rate regular rate and rhythm Abdominal: Soft without guarding or rebound Extremities: Normal inspection with full range of motion and normal capillary refill Neuroogic: alert and oriented 3, CN II-XII intact, able to ambulate with steady gait Skin: warm dry and intact with normal color Limitations: no limitations Course Vital Signs 06/04/23 13:10 Temperature 98.6 F Pulse Rate 67 Respiratory 20 Rate Blood Pressure 153/75 O2 Sat by Pulse 97 Oximetry Medical Decision Making - Medical Decision Making Was pt. sent in by a medical professional or institution (, PA, SERVICE DELIVERY MANAGER, urgent care, hospital, or senior care...) When possible be specific @ -[No] Did you speak to anyone other than the patient for history (EMS, parent, family, police, friend...)? What history was obtained from this source @ -[No] Did you review nursing and triage notes (agree or disagree)? Why? @ -[I reviewed and agree with nursing and triage notes] Were old charts reviewed (outside hosp., previous admission, EMS record, old EKG, old radiological studies, urgent care reports/EKG's, senior care records)? Report findings @ -[No old charts were reviewed] Differential Diagnosis (chest pain, altered mental status, abdominal pain women, abdominal pain men, vaginal bleeding, weakness, fever, dyspnea, syncope, headache, dizziness, GI bleed, back pain, seizure, CVA, palpatations, mental health, musculoskeletal)? @ -[not applicable] EKG interpreted by me (3pts min.). @ -[As above] X-rays interpreted by me (1pt min.). @ -Knee x-ray significant for any evidence of fracture patient CT interpreted by me (1pt min.). @ -CT head and facial bones negative for any intracranial process or fracture. U/S interpreted by me (1pt. min.). @ -[None done] What testing was considered but not performed or refused? (CT, X-rays, U/S, labs)? Why? @ -[None] What meds were considered but not given or refused? Why? @ -[None] Did you discuss the management of the patient with other professionals (professionals i.e. , PA, SERVICE DELIVERY MANAGER, lab, RT, psych nurse, social science research assistant, supervisor burling and joining, teacher, chief clinical officer, case picker)? Give summary @ -[No] Was smoking cessation discussed for >3mins.? @ -[No] Was critical care preformed (if so, how long)? @ -[No] Were there social determinants of health that impacted care today? How? (Homelessness, low income, unemployed, alcoholism, drug addiction, transportation, low edu. Level, literacy, decrease access to med. care, group home, rehab)? @ -[No] Was there de-escalation of care discussed even if they declined (Discuss DNR or withdrawal of care, Hospice)? DNR status @ -[No] What co-morbidities impacted this encounter? (DM, HTN, Smoking, COPD, CAD, Cancer, CVA, ARF, Chemo, Hep., AIDS, mental health diagnosis, sleep apnea, morbid obesity)? @ -[None] Was patient admitted / discharged? Hospital course, mention meds given and route, prescriptions, significant lab abnormalities, going to OR and other pertinent info. @ -Discharged. This is a pleasant 73-year-old female who presents the emergency department with fall. Patient had a thorough history and physical exam performed. Physical exam is essentially unremarkable. No focal neuro deficits on exam. Patient able to ambulate with steady gait and all extremities freely. He had imaging performed which was negative. Patient was offered knee immobilizer half she declined. Patient reports she has a knee immobilizer at home. I discussed the results in detail with the patient verbalized understanding all questions were addressed. Agreeable with the plan for discharge home at this time. Case discussed with Dr. Moscoso who agrees with POC Undiagnosed new problem with uncertain prognosis? @ -[No] Drug Therapy requiring intensive monitoring for toxicity (Heparin, Nitro, Insulin, Cardizem)? @ -[No] Were any procedures done? @ -[No] Diagnosis/symptom? @ -Fall - Knee pain Acute, or Chronic, or Acute on Chronic? @ -Acute Uncomplicated (without systemic symptoms) or Complicated (systemic symptoms)? @ -Uncomplicated Side effects of treatment? @ -[No] Exacerbation, Progression, or Severe Exacerbation? @ -[No] Poses a threat to life or bodily function? How? (Chest pain, [place], [place], pneumonia, PE, COPD, DKA, ARF, appy, cholecystitis, CVA, Diverticulitis, Homicidal, Suicidal, threat to staff... and all critical care pts) @ -Low likelihood Disposition Clinical Impression: Fall Disposition: HOME SELF-CARE Condition: Stable Instructions (If sedation given, give patient instructions): Fall Prevention (ED) Additional Instructions: Take Tylenol Motrin for pain Please return to the nearest emergency department with dizziness, lightheadedness, sudden vision loss Is patient prescribed a controlled substance at d/c from ED?: No Referrals: Nena Gonzalez MD [Primary Care Provider] - 1-2 days Time of Disposition: 16:24
--- NOTE | 2023-06-04 16:04 | CT ---
EXAMINATION TYPE: CT brain wo con DATE OF EXAM: 06/04/2023 COMPARISON: None HISTORY: fall CT DLP: combined DLP 733.8 mGycm, Automated exposure control for dose reduction was used. CONTRAST: Patient injected with 0 mL of Isovue 300. CT of the brain is performed utilizing 3 mm thick sections through the posterior fossa and 3 mm thick sections through the remaining calvarium. Study is performed within 24 hours of arrival to the hospital. No abnormal hyperdensity is present to suggest an acute intracranial hemorrhage. No mass lesion is evident. No acute infarcts are evident. Ventricles and sulci are appropriate for the patient age. Soft tissues swelling is over the left supraorbital left frontal region. No underlying fractures are evident. Paranasal sinuses and mastoid air cells within the [id number]-[id number] are clear. IMPRESSIONS: 1. No acute intracranial process. Follow-up MRI can be performed as clinically indicated.
--- NOTE | 2023-06-04 16:07 | CT ---
EXAMINATION TYPE: CT facial bones wo con DATE OF EXAM: 06/04/2023 COMPARISON: None HISTORY: fall CT DLP: combined DLP 733.8 mGycm CONTRAST: 0 mL of Isovue 300 The paranasal sinuses are examined in the axial plane at 2 mm thick sections. Reconstructed images i n the coronal plane were obtained. There is dental amalgam scatter artifact The maxillary sinuses are clear. The ethmoid air cells are clear. The sphenoid sinuses are clear. The frontal sinuses are clear. The septum is evaluated. There is septal deviation to the . There is prior uncinectomies. Zygomatic arches are intact. Greater wings of the sphenoid are normal. Nasal bone is intact. Maxillar y spine is intact. IMPRESSION: 1. No acute osseous abnormality facial bones
--- NOTE | 2023-06-04 16:10 | XR ---
EXAMINATION TYPE: XR knee complete LT DATE OF EXAM: 06/04/2023 COMPARISON: None HISTORY: Left knee pain TECHNIQUE: 3 view left knee FINDINGS: Is narrowing of the lateral compartment joint space. Lateral femoral condylar spurring is p resent. Minimal medial tibial plateau and medial femoral condylar spurring is noted. Joint effusion i s likely present. Follow-up be performed 7-10 days from acute trauma for continued pain IMPRESSION: 1. Moderate degenerative changes greater in the lateral compartment left knee. 2. No acute osseous abnormality.
== END 2023-06-04 16:30 | disposition home or self-care (01) ==
LOC: EC 13:03
DX: M25.562 Pain in left knee (principal); J44.9 Chronic obstructive pulmonary disease, unspecified; K21.9 Gastro-esophageal reflux disease without esophagitis; I10 Essential (primary) hypertension; M17.12 Unilateral primary osteoarthritis, left knee; E07.9 Disorder of thyroid, unspecified; Z88.2 Allergy status to sulfonamides; Z88.8 Allergy status to other drugs, medicaments and biological substances; Z79.890 Hormone replacement therapy; Z79.899 Other long term (current) drug therapy
CPT/HCPCS: 70450; 70486; 99284

== ENCOUNTER → 2023-09-21 | Outpatient (CLI) | payer MEDICARE ==
--- NOTE | 2023-09-21 14:37 | MM ---
Reason for Exam: Screening (asymptomatic). Last screening mammogram was performed 12 month(s) ago. Patient History: Menarche at age 15. First Full-Term at age 21. Postmenopausal. Progesterone for 2 years from age 55 until age 57. Niece had breast cancer at or over age 50. Sister had breast cancer at or over age 50. Risk Values: Faye 5 year model risk: 3.0%. NCI Lifetime model risk: 8.3%. Prior Study Comparison: 08/14/2020 Bilateral Screening Mammogram, [facility]. 09/17/2021 Bilateral Screening Mammogram, [facility]. 09/20/2022 Bilateral MG 3D screening mammo w/cad, [facility]. Tissue Density: The breast tissue is heterogeneously dense. This may lower the sensitivity of mammography. Findings: Analyzed By CAD. There is no suspicious group of microcalcifications or new suspicious mass. Benign-appearing calcifications bilaterally. Overall Assessment: Benign, BI-RAD 2 Management: Screening Mammogram of both breasts in [address] [facility] will attempt to contact patient to return for supplemental views and ultrasound if indicated. Patient should continue monthly self-breast exams. A clinical breast exam by your physician is recommended on an annual basis. This exam should not preclude additional follow-up of suspicious palpable abnormalities. Note on Faye scores and lifetime risk: 1. A Faye score greater than 3% is considered moderate risk. If this is the case, consider specialist referral to assess eligibility for a risk reducing agent. 2. If overall lifetime risk for the development of breast cancer is 20% or higher, the patient may qualify for future screening with alternating mammogram and breast MRI. Electronically signed and approved by: Manpreet Quach DO
== END | disposition home or self-care (01) ==
LOC: RADMAMWWP 13:01
PROVIDERS: ATTEND Obstetrics & Gynecology
DX: Z12.31 Encounter for screening mammogram for malignant neoplasm of breast (principal); Z80.3 Family history of malignant neoplasm of breast; Z78.0 Asymptomatic menopausal state
CPT/HCPCS: 77063; 77067

== ENCOUNTER 2023-10-19 11:49 | Emergency (ER) | payer MEDICARE ==
[2023-10-19 12:02] VITALS: BP 155/90; PULSE 70; RESP 18; TEMP 97.9
[2023-10-19 12:24] LABS: Basophils # (A) 0.1 k/uL (0-0.2); Basophils % (A) 1 %; Eosinophils # (A) 0.1 k/uL (0-0.7); Eosinophils % (A) 2 %; HCT 40.3 % (34.0-46.0); HGB 13.5 gm/dL (11.4-16.0); Lymphocytes # (A) 1.1 k/uL (1.0-4.8); Lymphocytes % (A) 17 %; MCH 30.3 pg (25.0-35.0); MCHC 33.5 g/dL (31.0-37.0); MCV 90.6 fL (80.0-100.0); Mean Platelet Volume 7.9; Monocytes # (A) 0.4 k/uL (0-1.0); Monocytes % (A) 6 %; Neutrophils # (A) 4.4 k/uL (1.3-7.7); Neutrophils % (A) 71 %; Platelet Count 220 k/uL (150-450); RBC 4.45 m/uL (3.80-5.40); RDW 13.4 % (11.5-15.5); WBC 6.1 k/uL (3.8-10.6)
[2023-10-19 12:37] LABS: AST 34 U/L (14-36); African American GFR (CKD) 86 (>60 ml/min/1.73 sqM); Blood Urea Nitrogen 20 mg/dL (7-17); Magnesium 2.1 mg/dL (1.6-2.3); Non-African American GFR(CKD) 75 (>60 ml/min/1.73 sqM)
[2023-10-19 12:40] LABS: INR 0.8 (<1.2); Partial Thromboplastin Time 23.4 sec (22.0-30.0); Prothrombin Time 9.5 sec (10.0-12.5)
[2023-10-19 12:45] LABS: NT-Pro-B-Type Natriuretic Pept 225 pg/mL
--- NOTE | 2023-10-19 12:45 | XR ---
EXAMINATION TYPE: XR chest 2V DATE OF EXAM: 10/19/2023 12:33 PM CLINICAL INDICATION:Female, 72 years old with history of Chest Pain; [facility] COMPARISON: Chest radiographs from 05/22/2023. TECHNIQUE: XR chest 2V Frontal and lateral views of the chest. FINDINGS: Lungs/Pleura: There is flattening of the diaphragm with increased lucency of the lungs. No evidence o f pneumothorax, pleural effusion or focal consolidation. Pulmonary vascularity: Unremarkable. Heart/mediastinum: Cardiomediastinal silhouette is unremarkable. Musculoskeletal: No acute osseous pathology. IMPRESSION: 1. No acute cardiopulmonary disease process. 2. COPD changes.
[2023-10-19 13:37] LABS: ALT 23 U/L (4-34); Albumin 4.3 g/dL (3.5-5.0); Alkaline Phosphatase 84 U/L (38-126); Anion Gap 10 mmol/L; Carbon Dioxide 22 mmol/L (22-30); Chloride 107 mmol/L (98-107); Glucose 94 mg/dL (74-99); Potassium 4.9 mmol/L (3.5-5.1); Sodium 139 mmol/L (137-145); Total Protein 7.1 g/dL (6.3-8.2)
--- NOTE | 2023-10-19 13:37 | ED ---
General Adult HPI - General Source: patient, RN notes reviewed Mode of arrival: wheelchair Limitations: no limitations <Mahsa Fairchild - Last Filed: 10/19/23 13:35> <Manpreet Xavier - Last Filed: 10/19/23 16:21> - General Chief complaint: Chest Pain Stated complaint: Chest Pain Time Seen by Provider: 10/19/23 13:35 - History of Present Illness Initial comments: 72-year-old female presents to the emergency department for evaluation of central chest pain radiating to the left side of her neck. She states that this woke her up in the middle the night and lasted around 5 minutes. She states that this subsided. She states that she has experienced this once or twice in the past but has no significant cardiac history. She reports that she woke up feeling lightheaded and more weak in general than she typically does. (Mahsa Fairchild) - Related Data Home Medications Medication Instructions Recorded Confirmed Ascorbic Acid [Vitamin C] 500 mg PO DAILY 06/05/18 05/22/23 Calcium Carbonate/Vitamin D3 1 tab PO BID 06/05/18 05/22/23 [Calcium 600-Vit D3 5 Mcg (200 Iu)] Cholecalciferol [Vitamin D3 (10 400 unit PO DAILY 06/05/18 05/22/23 Mcg = 400 Iu)] Cyanocobalamin (Vitamin B-12) 1,000 mcg PO DAILY 06/05/18 05/22/23 [Vitamin B-12] Levothyroxine Sodium [Synthroid] 125 mcg PO HS 06/05/18 05/22/23 Magnesium Gluconate [Magonate] 500 mg PO DAILY 06/05/18 05/22/23 Raloxifene [Evista] 60 mg PO W/SUPPER 06/05/18 05/22/23 Vitamin B Complex 1 cap PO DAILY 06/05/18 05/22/23 Aspirin [Esko Aspirin EC] 81 mg PO DAILY 01/16/19 05/22/23 Biotin 5 mg PO DAILY 10/01/19 05/22/23 Folic Acid 0.4 mg PO DAILY 10/01/19 05/22/23 Glucosamine Sulfate 1,500 mg PO DAILY 10/01/19 05/22/23 carvediloL [Coreg] 3.125 mg PO BID-W/MEALS 10/01/19 05/22/23 Esomeprazole Magnesium [NexIUM] 40 mg PO DAILY 06/11/22 05/22/23 Allergies Allergy/AdvReac Type Severity Reaction Status Date / Time ceftriaxone [From Rocephin] Allergy Rash/Hives Verified 10/19/23 11:54 cephalexin [From Keflex] Allergy Rash/Hives Verified 10/19/23 11:54 levofloxacin Allergy Rash/Hives Verified 10/19/23 11:54 nitrofurantoin Allergy Itching Verified 10/19/23 11:54 [From Macrobid] sulfamethoxazole Allergy Itching Verified 10/19/23 11:54 [From Bactrim] trimethoprim [From Bactrim] Allergy Itching Verified 10/19/23 11:54 Review of Systems ROS Other: All systems not noted in ROS Statement are negative. <Mahsa Fairchild - Last Filed: 10/19/23 13:35> ROS Other: All systems not noted in ROS Statement are negative. <Manpreet Xavier - Last Filed: 10/19/23 16:21> ROS Statement: Those systems with pertinent positive or pertinent negative responses have been documented in the HPI. Past Medical History Past Medical History: COPD, GERD/Reflux, Hypertension, Osteoarthritis (OA), Sleep Apnea/CPAP/BIPAP, Thyroid Disorder Additional Past Medical History / Comment(s): Chrons with ileostomy. CPAP. History of Any Multi-Drug Resistant Organisms: None Reported Past Surgical History: Tonsillectomy Additional Past Surgical History / Comment(s): ilestomy, wrist surgery. D & C Past Anesthesia/Blood Transfusion Reactions: No Reported Reaction Past Psychological History: No Psychological Hx Reported Smoking Status: Never smoker Past Alcohol Use History: None Reported Past Drug Use History: None Reported <Mahsa Fairchild - Last Filed: 10/19/23 13:35> General Exam Limitations: no limitations <Mahsa Fairchild - Last Filed: 10/19/23 13:35> General appearance: alert, in no apparent distress Head exam: Present: atraumatic, normocephalic Eye exam: Present: normal appearance, PERRL ENT exam: Present: normal exam Neck exam: Present: normal inspection. Absent: tenderness, meningismus Respiratory exam: Present: normal lung sounds bilaterally. Absent: respiratory distress, wheezes Cardiovascular Exam: Present: regular rate, normal rhythm GI/Abdominal exam: Present: soft. Absent: distended, tenderness, guarding Extremities exam: Present: normal inspection, normal capillary refill. Absent: pedal edema Neurological exam: Present: alert, oriented X3, CN II-XII intact. Absent: motor sensory deficit Psychiatric exam: Present: normal affect, normal mood Skin exam: Present: warm, dry, intact <Manpreet Xavier - Last Filed: 10/19/23 16:21> - General Exam Comments Initial Comments: Visual Physical Exam Vital signs reviewed General: Well-appearing, nontoxic, no acute distress. Head: Normocephalic, atraumatic Eyes: PERRLA, EOMI ENT: Airway patent Chest: Nonlabored breathing Skin: No visual rash, normal skin tone Neuro: Alert and oriented 3 Musculoskeletal: No gross abnormalities (Mahsa Fairchild) Course <Manpreet Xavier - Last Filed: 10/19/23 16:21> Vital Signs 10/19/23 11:51 Temperature 97.9 F Pulse Rate 70 Respiratory 18 Rate Blood Pressure 155/90 O2 Sat by Pulse 97 Oximetry - Reevaluation(s) Reevaluation #1: 10/19/23 14:58 Patient prefers repeat troponin in the emergency department and does not want to stay for further cardiac testing. (Manpreet Xavier) Medical Decision Making - Lab Data Result diagrams: 10/19/23 12:16 <Mahsa Fairchild - Last Filed: 10/19/23 13:35> - Lab Data Result diagrams: 10/19/23 12:16 10/19/23 12:16 <Manpreet Xavier - Last Filed: 10/19/23 16:21> - Medical Decision Making Quick note preformed by Mahsa Fairchild PA-C (Mahsa Fairchild) Was pt. sent in by a medical professional or institution ([facility]ield, FASTENER TECHNOLOGIST, urgent care, hospital, or snf...) When possible be specific @ -No Did you speak to anyone other than the patient for history (EMS, parent, family, police, friend...)? What history was obtained from this source @ -No Did you review nursing and triage notes (agree or disagree)? Why? @ -I reviewed and agree with nursing and triage notes Were old charts reviewed (outside hosp., previous admission, EMS record, old EKG, old radiological studies, urgent care reports/EKG's, snf records)? Report findings @ -No old charts were reviewed Differential Diagnosis (chest pain, altered mental status, abdominal pain women, abdominal pain men, vaginal bleeding, weakness, fever, dyspnea, syncope, headache, dizziness, GI bleed, back pain, seizure, CVA, palpatations, mental health, musculoskeletal)? @ -[Differential Chest Pain: Stable Angina, Unstable Angina, STEMI, NSTEMI Aortic Dissection, Pneumothorax, Musculoskeletal, Esophageal Spasm GERD, Cholecystitis, Pancreatitis, Zoster, this is not meant to be an all-inclusive list. EKG interpreted by me (3pts min.). @Sinus bradycardia, rate of 59, MI interval 146, QRS duration 85, QTc [address] segment elevation. Tremor artifact. X-rays interpreted by me (1pt min.). @ -None done CT interpreted by me (1pt min.). @ -None done U/S interpreted by me (1pt. min.). @ -None done What testing was considered but not performed or refused? (CT, X-rays, U/S, la bs)? Why? @ -None What meds were Chest x-ray negative for acute cardiopulmonary findings. not given or refused? Why? @ -None Did you discuss the management of the patient with other professionals (rm rey i.e. , PA, FASTENER TECHNOLOGIST, lab, RT, psych nurse, social work nurse, porter luggage, teacher, grants officer, porter sample case)? Give summary @ -No Was smoking cessation discussed for >3mins.? @ -No Was critical care preformed (if so, how long)? @ -No Were there social determinants of health that impacted care today? How? (Homelessness, low income, unemployed, alcoholism, drug addiction, transportation, low edu. Level, literacy, decrease access to med. care, halfway, rehab)? @ -No Was there de-escalation of care discussed even if they declined (Discuss DNR or withdrawal of care, Hospice)? DNR status @ -No What co-morbidities impacted this encounter? (DM, HTN, Smoking, COPD, CAD, Cancer, CVA, ARF, Chemo, Hep., AIDS, mental health diagnosis, sleep apnea, morbid obesity)? @ -None Was patient admitted / discharged? Hospital course, mention meds given and route, prescriptions, significant lab abnormalities, going to OR and other pertinent info. @ -[72-year-old female presenting with an episode of chest pain which began early this morning and lasted approximately 5 minutes. This radiated to her ja w. She has had a prior episode similar to this. She has no chest pain at the time my evaluation. EKG is sinus without ST segment elevation. Chest x-ray is clear. She has a normal CBC, normal CMP, negative initial troponin. We discussed the possibility of admission for further cardiac testing versus repeat troponin at 3 hours and the patient preferred repeat troponin testing in the emergency department the second troponin was also negative. She will follow closely with her primary care provider. She is given strict return parameters. Undiagnosed new problem with uncertain prognosis? @ -No Drug Therapy requiring intensive monitoring for toxicity (Heparin, Nitro, Insulin, Cardizem)? @ -No Were any procedures done? @ -No Diagnosis/symptom? @ -Chest pain Acute, or Chronic, or Acute on Chronic? @ -[Acute Uncomplicated (without systemic symptoms) or Complicated (systemic symptoms)? @ -Default Side effects of treatment? @ -No Exacerbation, Progression, or Severe Exacerbation? @ -No Poses a threat to life or bodily function? How? (Chest pain, [place], [place], pneumonia, PE, COPD, DKA, ARF, appy, cholecystitis, CVA, Diverticulitis, Homicidal, Suicidal, threat to staff... and all critical care pts) @ -[Low risk at this time (Manpreet Xavier) - Lab Data Lab Results 10/19/23 10/19/23 10/19/23 Range/Units 12:16 12:16 12:16 WBC 6.1 (3.8-10.6) k/uL RBC 4.45 (3.80-5.40) m/uL Hgb 13.5 (11.4-16.0) gm/dL Hct 40.3 (34.0-46.0) % MCV 90.6 (80.0-100.0) fL MCH 30.3 (25.0-35.0) pg MCHC 33.5 (31.0-37.0) g/dL RDW 13.4 (11.5-15.5) % Plt Count 220 (150-450) k/uL MPV 7.9 Neutrophils % 71 % Lymphocytes % 17 % Monocytes % 6 % Eosinophils % 2 % Basophils % 1 % Neutrophils # 4.4 (1.3-7.7) k/uL Lymphocytes # 1.1 (1.0-4.8) k/uL Monocytes # 0.4 (0-1.0) k/uL Eosinophils # 0.1 (0-0.7) k/uL Basophils # 0.1 (0-0.2) k/uL PT 9.5 L (10.0-12.5) sec INR 0.8 (<1.2) APTT 23.4 (22.0-30.0) sec Sodium 139 (137-145) mmol/L Potassium 4.9 (3.5-5.1) mmol/L Chloride 107 (98-107) mmol/L Carbon Dioxide 22 (22-30) mmol/L Anion Gap 10 mmol/L BUN 20 H (7-17) mg/dL Creatinine 0.80 (0.52-1.04) mg/dL Est GFR (CKD-EPI)AfAm 86 (>60 ml/min/1.73 sqM) Est GFR (CKD-EPI)NonAf 75 (>60 ml/min/1.73 sqM) Glucose 94 (74-99) mg/dL Calcium 10.0 (8.4-10.2) mg/dL Magnesium 2.1 (1.6-2.3) mg/dL Total Bilirubin 1.0 (0.2-1.3) mg/dL AST 34 (14-36) U/L ALT 23 (4-34) U/L Alkaline Phosphatase 84 (38-126) U/L Troponin I (0.000-0.034) ng/mL NT-Pro-B Natriuret Pep 225 pg/mL Total Protein 7.1 (6.3-8.2) g/dL Albumin 4.3 (3.5-5.0) g/dL 10/19/23 10/19/23 Range/Units 12:16 15:25 WBC (3.8-10.6) k/uL RBC (3.80-5.40) m/uL Hgb (11.4-16.0) gm/dL Hct (34.0-46.0) % MCV (80.0-100.0) fL MCH (25.0-35.0) pg MCHC (31.0-37.0) g/dL RDW (11.5-15.5) % Plt Count (150-450) k/uL MPV Neutrophils % % Lymphocytes % % Monocytes % % Eosinophils % % Basophils % % Neutrophils # (1.3-7.7) k/uL Lymphocytes # (1.0-4.8) k/uL Monocytes # (0-1.0) k/uL Eosinophils # (0-0.7) k/uL Basophils # (0-0.2) k/uL PT (10.0-12.5) sec INR (<1.2) APTT (22.0-30.0) sec Sodium (137-145) mmol/L Potassium (3.5-5.1) mmol/L Chloride (98-107) mmol/L Carbon Dioxide (22-30) mmol/L Anion Gap mmol/L BUN (7-17) mg/dL Creatinine (0.52-1.04) mg/dL Est GFR (CKD-EPI)AfAm (>60 ml/min/1.73 sqM) Est GFR (CKD-EPI)NonAf (>60 ml/min/1.73 sqM) Glucose (74-99) mg/dL Calcium (8.4-10.2) mg/dL Magnesium (1.6-2.3) mg/dL Total Bilirubin (0.2-1.3) mg/dL AST (14-36) U/L ALT (4-34) U/L Alkaline Phosphatase (38-126) U/L Troponin I <0.012 <0.012 (0.000-0.034) ng/mL NT-Pro-B Natriuret Pep pg/mL Total Protein (6.3-8.2) g/dL Albumin (3.5-5.0) g/dL Disposition <Masha Fairchild - Last Filed: 10/19/23 13:35> Is patient prescribed a controlled substance at d/c from ED?: No Time of Disposition: 16:21 <Manpreet Xavier - Last Filed: 10/19/23 16:21> Clinical Impression: Chest pain Disposition: HOME SELF-CARE Condition: Fair Instructions (If sedation given, give patient instructions): Chest Pain (ED) Referrals: Nena Gonzalez MD [Primary Care Provider] - 1-2 days
== END 2023-10-19 16:50 | disposition home or self-care (01) ==
LOC: EC 11:49
DX: R07.89 Other chest pain (principal); R00.1 Bradycardia, unspecified; I10 Essential (primary) hypertension; J44.9 Chronic obstructive pulmonary disease, unspecified; K21.9 Gastro-esophageal reflux disease without esophagitis; E07.9 Disorder of thyroid, unspecified; G47.30 Sleep apnea, unspecified; Z79.82 Long term (current) use of aspirin; Z79.890 Hormone replacement therapy; Z79.899 Other long term (current) drug therapy; Z88.2 Allergy status to sulfonamides; Z88.8 Allergy status to other drugs, medicaments and biological substances; Z88.1 Allergy status to other antibiotic agents
CPT/HCPCS: 36415; 71046; 80053; 83735; 83880; 84484; 85025; 85610; 85730; 93005; 99285

== ENCOUNTER → 2023-12-06 | Outpatient (CLI) | payer MEDICARE ==
[2023-12-06 14:46] VITALS: BP 125/79; PULSE 64; RESP 15; TEMP 97.9
[2023-12-06] MEDS: SODIUM CHLORIDE 0.9% 500 ML 500 ML in EMPTY BAG 1 BAG IV PRN (14:56)
[2023-12-06] MEDS: ZOLEDRONIC ACID 5 MG in SODIUM CHLORIDE 0.9% 100 ML IV NR (14:56)
== END ==
LOC: PROCWHC3 14:19
PROVIDERS: ATTEND Internal Medicine Rheumatology
DX: M81.0 Age-related osteoporosis without current pathological fracture (principal)
CPT/HCPCS: 96365; J3489

== ENCOUNTER → 2024-03-15 | Outpatient (CLI) | payer MEDICARE ==
[2024-03-15 18:41] LABS: HCT 39.9 % (37.2-46.3); HGB 12.9 g/dL (12.0-15.0); MCH 29.4 pg (27.0-32.0); MCHC 32.3 g/dL (32.0-37.0); MCV 90.9 FL (80.0-97.0); Mean Platelet Volume 11.3 FL (9.5-12.2); NRBC Per 100 WBC 0 X 10*3/uL (0.00-0.01); Platelet Count 252 X 10*3/uL (140-440); RBC 4.39 X 10*6/uL (4.10-5.20); RDW 13.1 % (11.5-14.5); WBC 6.23 X 10*3/uL (4.50-10.00)
[2024-03-15 19:12] LABS: Blood Urea Nitrogen 20.5 mg/dL (9.0-27.0); Carbon Dioxide 24.9 mmol/L (21.6-31.8); Chloride 106 mmol/L (96-109); Potassium 4.7 mmol/L (3.5-5.5); Sodium 142 mmol/L (135-145)
== END | disposition home or self-care (01) ==
LOC: LABPAT 14:30
PROVIDERS: ATTEND Internal Medicine Interventional Cardiology
DX: Z01.812 Encounter for preprocedural laboratory examination (principal); I25.10 Atherosclerotic heart disease of native coronary artery without angina pectoris
CPT/HCPCS: 36415; 80051; 82565; 84520; 85027

== ENCOUNTER 2024-03-20 06:26 | Day surgery (SDC) | payer MEDICARE ==
[~2024-03-20 06:26] MED LIST changes: +ALPRAZolam 0.25 MG TAB PO PRN; +ALPRAZolam 0.5 MG TAB PO PRN; +ASPIRIN 325 MG TAB PO STA; +HEPARIN SODIUM,PORCINE (1 ML) 2,500 UNIT in SODIUM CHLORIDE 0.9% 250 ML IRRIGATION PRN; +HEPARIN SODIUM,PORCINE 10,000 UNIT in SODIUM CHLORIDE 0.9% 1,000 ML IRRIGATION PRN; -LACTATED RINGERS 1,000 ML IV SCH; +NITROGLYCERIN SL TABS 0.4 MG TAB SUBLINGUAL PRN
[2024-03-20 07:02] VITALS: RESP 18; TEMP 97.9
[2024-03-20] MEDS: SODIUM CHLORIDE 0.9% 1,000 ML in EMPTY BAG 1 BAG IV SCH (07:02)
[2024-03-20] MEDS ORDERED: VERAPAMIL 2.5 MG/ML 2 ML AMP ONE (07:11)
[2024-03-20] MEDS ORDERED: LIDOCAINE 1% INJ 10MG/ML (20 ML MDV) ONE (07:11)
[2024-03-20] MEDS ORDERED: HEPARIN SODIUM 1,000 UN/ML (10ML VL) ONE (07:11)
[2024-03-20] MEDS: MIDAZOLAM 2 MG/2 ML VIAL IVP ONE (07:32)
[2024-03-20] MEDS: LIDOCAINE 1% INJ 10MG/ML (20 ML MDV) SQ ONE (07:34)
[2024-03-20] MEDS: VERAPAMIL SYRINGE (5 MG/10 ML) INTRAARTER ONE (07:36)
[2024-03-20] MEDS: HEPARIN SODIUM 1,000 UN/ML (10ML VL) IVP ONE (07:40)
[2024-03-20] MEDS: IOPAMIDOL-370 200ML BTL INJ ONE (07:44)
[2024-03-20] MEDS ORDERED: RX INFO: IV CONTRAST WAS GIVEN 1 EACH MISC MISCELLANE PRN (07:58)
[2024-03-20] MEDS ORDERED: SODIUM CHLORIDE 0.9% 1,000 ML IV SCH (08:00)
--- NOTE | 2024-03-20 08:03 | P.CARDCATH ---
Date of Procedure: 03/20/24 Description of Procedure: Cardiac Catheterization: The patient is a 73-year-old female with history of hypertension, hyperlipidemia who had an abnormal MPI and a CT angiogram that was reported showing 70% stenosis in the LAD. Recommendations were made regarding cardiac catheterization, the risks and the complications were discussed with the patient who is in full understanding and agreement. Procedure Description: Patient was brought to laborer cutting tool in fasting semi-sedated state after receiving Fentanyl and Benadryl achieiving moderate conscious sedated state. Using Xylocaine Anesthesia and modified Seldinger technique, a 6-Yoruba sheath was introduced in the right radial artery . Subsequently, selective coronary angiography was performed using a 5-Yoruba 3.5 bend Alex catheter. Multiple views of the coronary artery including hemiaxial views were obtained. The right Alex catheter was used to cross the aortic valve and LVEDP was calculated. Following that, catheter and sheath were removed. Hemostasis was obtained with deployment of vascular band . There was no immediate complication. Patient was returned to room in stable condition. Of note, the patient received a total of 3500 units of intravenous heparin as well as intra-arterial verapamil. Findings: Left main: This is a short size vessel, bifurcating into LAD and left circumflex, left main has no obstructive disease. LAD: This is a large size vessel, reaching to the apex with a wraparound apex segment tortuous in the midsegment. The proximal LAD has a 20% eccentric lesion. The rest of the vessel has no high-grade stenosis Left circumflex: This is a large nondominant vessel giving rise to 2 obtuse marginal branch of large caliber, the left circumflex and its branches have no obstructive disease. RCA: This is a moderately sized dominant vessel, bifurcating distally to PDA and PLV. The right coronary artery and its branches have no obstructive disease Left Ventriculogram: Not performed Hemodynamics: There was no gradient across the aortic valve, LVEDP was 4-6 mmHg Conclusion: 1. Mild plaque in the proximal LAD 2. Right dominance 3. No obstructive disease in the left circumflex and the RCA 4. Low LVEDP Recommendations: I see no evidence of significant disease, I have recommended to continue medical therapy with the aggressive coronary risks modification that has been initiated. The findings and the recommendations were discussed with the patient and the family and they were in full understanding and agreement. Duration of sedation is 10 minutes.
[2024-03-20 10:57] VITALS: BP 123/74; PULSE 63
[2024-03-20] MEDS ORDERED: carvediloL 3.125 MG TAB PO SCH (17:30)
[2024-03-20] MEDS ORDERED: LEVOTHYROXINE 125 MCG TAB PO SCH (21:00)
[2024-03-21] MEDS ORDERED: ASPIRIN 81 MG PO SCH (09:00)
[2024-03-21] MEDS ORDERED: LOSARTAN 25 MG TAB PO SCH (09:00)
[2024-03-21] MEDS ORDERED: ATORVASTATIN 20 MG TAB PO SCH (09:00)
== END 2024-03-20 11:14 | disposition home or self-care (01) ==
LOC: CATHCVL 06:26
PROVIDERS: ATTEND Internal Medicine Interventional Cardiology
DX: I25.10 Atherosclerotic heart disease of native coronary artery without angina pectoris (principal); I10 Essential (primary) hypertension; E78.5 Hyperlipidemia, unspecified; G47.33 Obstructive sleep apnea (adult) (pediatric); Z88.2 Allergy status to sulfonamides; Z88.1 Allergy status to other antibiotic agents; Z88.8 Allergy status to other drugs, medicaments and biological substances; Z79.899 Other long term (current) drug therapy; Z79.82 Long term (current) use of aspirin
CPT/HCPCS: 93458; 99152; C1769 ×2; C1894; J2250; J2001; J1644; Q9967

== ENCOUNTER → 2024-04-20 | Outpatient (CLI) | payer MEDICARE ==
[2024-04-20 19:32] LABS: ALT 21 U/L (8-44); AST 28 U/L (13-35); Chol/HDL Ratio 1.72 Ratio; LDL Cholesterol,Calculated 48.7 mg/dL (0.0-131.0); VLDL Calculation 13.94 mg/dL (5.00-40.00)
== END | disposition home or self-care (01) ==
LOC: LABWHC1 11:54
PROVIDERS: ATTEND Internal Medicine Interventional Cardiology
DX: E78.2 Mixed hyperlipidemia (principal)
CPT/HCPCS: 36415; 80061; 84450; 84460

== ENCOUNTER → 2024-09-24 | Outpatient (CLI) | payer MEDICARE ==
[2024-09-24 12:37] LABS: African American GFR (CKD) 80 (>60 ml/min/1.73 sqM); Blood Urea Nitrogen 24 mg/dL (7-17); Non-African American GFR(CKD) 70 (>60 ml/min/1.73 sqM)
--- NOTE | 2024-09-24 14:10 | CT ---
EXAMINATION TYPE: CT chest w con CT DLP: 240.5 mGycm, Automated exposure control for dose reduction was used. DATE OF EXAM: 09/24/2024 1:44 PM COMPARISON: CT chest 06/22/2016 CLINICAL INDICATION:Female, 73 years old with history of R91.1 Solitary pulmonary nodule; PHH, lung n odule f/u TECHNIQUE: Multiple axial images were obtained through the chest following the administration of 100 cc of Isovue 300. . Coronal and sagittal reformats reviewed. FINDINGS: LUNGS/ PLEURA: Mild apical pleural-parenchymal scarring. No focal consolidation, pneumothorax, or ple ural effusion. Minimal subsegmental atelectasis within the lingula. Linear scarring and/or atelectas is within the medial aspect of the right middle lobe. No suspicious pulmonary nodule or mass. Previou sly seen groundglass opacity within the anterior right upper lobe is no longer visualized. AIRWAY: Patent and unremarkable.. HEART: Size within normal limits.No pericardial effusion. Small coronary artery calcifications. MEDIASTINUM: No evidence of adenopathy. VASCULATURE: No aortic aneurysm. Mild atherosclerotic calcification of the aorta and its branches. MUSCULOSKELETAL: Mild disc degeneration changes are present throughout the thoracolumbar spine. No ac vik osseous abnormality. SOFT TISSUES/LYMPH NODES: Unremarkable. LOWER NECK: No significant findings. UPPER ABDOMEN: Scattered surgical clips identified within the upper abdomen. IMPRESSION: No acute thoracic process. No suspicious pulmonary mass or nodule. [facility], , 09/24/2024 2:08 PM
== END | disposition home or self-care (01) ==
LOC: RADCTMAIN 11:47
PROVIDERS: ATTEND Internal Medicine Critical Care Medicine
DX: R91.1 Solitary pulmonary nodule (principal)
CPT/HCPCS: 82565; 84520; 71260; Q9967

== ENCOUNTER → 2024-09-24 | Outpatient (CLI) | payer MEDICARE ==
--- NOTE | 2024-09-24 16:36 | MM ---
Reason for Exam: Screening (asymptomatic). Last screening mammogram was performed 12 month(s) ago. Patient History: Menarche at age 15. First Full-Term at age 21. Postmenopausal. Progesterone for 2 years from age 55 until age 57. Niece had breast cancer, age 45. Sister had breast cancer, age 75. Risk Values: Faye 5 year model risk: 3.1%. NCI Lifetime model risk: 7.9%. Prior Study Comparison: 09/17/2021 Bilateral Screening Mammogram, [facility]. 09/20/2022 Bilateral MG 3D screening mammo w/cad, [facility]. 09/21/2023 Bilateral MG 3D screening mammo w/cad, [facility]. Tissue Density: The breasts are heterogeneously dense, which may obscure small masses. Findings: Analyzed By CAD. The pattern is symmetrical. No significant interval change is evident. A changing nodule may be present within the mid medial lateral view left breast. Additional workup is recommended. Right breast:No suspicious groups of microcalcifications, spiculated or lobular masses, architectural distortion or other secondary signs of malignancy are mammographically apparent. Overall Assessment: Incomplete: need additional imaging evaluation, BI-RAD 0 Management: Diagnostic Mammogram of the left breast. A negative mammogram report should not preclude additional follow up of suspicious palpable abnormalities. Patient should continue monthly self breast exam. A clinical breast exam by your physician is recommended on an annual basis and results should be correlated with mammographic findings. Note on Faye scores and lifetime risk: 1. A Faye score greater than 3% is considered moderate risk. If this is the case, consider specialist referral to assess eligibility for a risk reducing agent. 2. If overall lifetime risk for the development of breast cancer is 20% or higher, the patient may qualify for future screening with alternating mammogram and breast MRI. [facility], , 09/24/2024 4:33 PM. Electronically signed and approved by: Sunil Dow D.O. Radiologis
== END | disposition home or self-care (01) ==
LOC: RADMAMWWP 11:18
PROVIDERS: ATTEND Obstetrics & Gynecology
DX: Z12.31 Encounter for screening mammogram for malignant neoplasm of breast (principal); Z78.0 Asymptomatic menopausal state; Z80.3 Family history of malignant neoplasm of breast; Z85.3 Personal history of malignant neoplasm of breast; R92.333 Mammographic heterogeneous density, bilateral breasts
CPT/HCPCS: 77063; 77067

== ENCOUNTER → 2024-10-04 | Outpatient (CLI) | payer MEDICARE ==
--- NOTE | 2024-10-08 07:42 | BD ---
EXAMINATION TYPE: Axial Bone Density DATE OF EXAM: 10/04/2024 CLINICAL HISTORY: 73 years old Female. 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 M81.0 AGE RE , Additional History: Height: 63 Weight: 153 FRAX RISK QUESTIONS: Family History (Parent hip fracture): yes History of Fracture in Adulthood: yes Secondary Osteoporosis: RISK FACTORS HISTORY OF: Hip Fracture (Right/Left): left hip When: 2020 History of Wrist Fracture: left wrist When: 2000 Surgery to Spine/Hip(right/left)/Wrist (right/left): left hip, left wrist MEDICATIONS: Thyroid Medications: Which medication: Levothyroxine How Long: about 10 years Osteoporosis Medications: Which medication: Other How Lon year EXAM MEASUREMENTS: Bone mineral densitometry was performed using the [employer] System. Bone mineral density as measured about the Lumbar spine is: ----- L1-L4(G/cm2): 1.161 T Score Values are as follows: ----- L1: -0.6 ----- L2: -0.4 ----- L3: 0.0 ----- L4: 0.2 ----- L1-L4: -0.2 Z Score Values are as follows: ----- L1: 1.0 ----- L2: 1.1 ----- L3: 1.5 ----- L4: 1.8 ----- L1-L4: 1.4 Bone mineral density has: Increased 14.2% since study of: 04-25-23 Bone mineral density about the R hip (g/cm2): 0.744 T Score values are as follows: -----R Neck: -2.5 -----R Total: -2.1 Z Score values are as follows: -----R Neck: -0.8 -----R Total: -0.6 Bone mineral density has: Decreased -0.4% since study of: 04-25-23 FRAX%s: The graph provided illustrates a 38.2% chance for a major osteoporotic fx and a 19.8% chance for the hips probability for fx in 10 years time. IMPRESSION: Osteopenia (T Score between -2.5 and -1). There is slightly increased risk of fracture and the patient may be considered for treatment. Re-Screen 2-5 years. NOTE: T-SCORE=SD OF THE YOUNG ADULT MEAN. [facility], , 10/08/2024 7:40 AM
== END | disposition home or self-care (01) ==
LOC: RADBDWWP 12:53
PROVIDERS: ATTEND Internal Medicine Rheumatology
DX: M80.00XD Age-related osteoporosis with current pathological fracture, unspecified site, subsequent encounter for fracture with routine healing (principal); M85.89 Other specified disorders of bone density and structure, multiple sites
CPT/HCPCS: 77080

== ENCOUNTER → 2024-10-04 | Outpatient (CLI) | payer MEDICARE ==
[2024-10-04 19:28] LABS: Basophils # (A) 0.06 X 10*3/uL (0.00-0.10); Eosinophils # (A) 0.18 X 10*3/uL (0.04-0.35); Eosinophils % (A) 2.9 %; HCT 42.3 % (37.2-46.3); HGB 12.9 g/dL (12.0-15.0); Lymphocytes # (A) 1.42 X 10*3/uL (0.90-5.00); Lymphocytes % (A) 22.7 %; MCH 28.2 pg (27.0-32.0); MCHC 30.5 g/dL (32.0-37.0); MCV 92.6 FL (80.0-97.0); Mean Platelet Volume 11.9 FL (9.5-12.2); Monocytes # (A) 0.72 X 10*3/uL (0.20-1.00); Monocytes % (A) 11.5 %; NRBC Per 100 WBC 0 X 10*3/uL (0.00-0.01); Neutrophils # (A) 3.86 X 10*3/uL (1.80-7.70); Neutrophils % (A) 61.7 %; Platelet Count 250 X 10*3/uL (140-440); RBC 4.57 X 10*6/uL (4.10-5.20); RDW 13.2 % (11.5-14.5); WBC 6.25 X 10*3/uL (4.50-10.00)
[2024-10-04 19:30] LABS: Blood Urea Nitrogen 21.1 mg/dL (9.0-27.0)
[2024-10-04 19:31] LABS: ALT 21 U/L (8-44); AST 24 U/L (13-35); Calcium 9.7 mg/dL (8.7-10.3)
== END | disposition home or self-care (01) ==
LOC: LABWHC1 13:24
PROVIDERS: ATTEND Internal Medicine Rheumatology
DX: M25.50 Pain in unspecified joint (principal); M81.0 Age-related osteoporosis without current pathological fracture; Z79.01 Long term (current) use of anticoagulants
CPT/HCPCS: 36415; 82306; 82310; 82565; 84450; 84460; 84520; 85025

== ENCOUNTER → 2024-10-08 | Outpatient (CLI) | payer MEDICARE ==
--- NOTE | 2024-10-08 15:10 | MM ---
Reason for Exam: Additional evaluation requested from abnormal screening. Last screening mammogram was performed less than 1 month ago. Patient History: Menarche at age 15. First Full-Term at age 21. Postmenopausal. Progesterone for 2 years from age 55 until age 57. Niece had breast cancer, age 45. Sister had breast cancer, age 75. Risk Values: Faye 5 year model risk: 3.1%. NCI Lifetime model risk: 7.9%. Prior Study Comparison: 09/20/2022 Bilateral MG 3D screening mammo w/cad, [facility]. 09/21/2023 Bilateral MG 3D screening mammo w/cad, [facility]. 09/24/2024 Bilateral MG 3D screening mammo w/cad, [facility]. Tissue Density: Left: The breasts are heterogeneously dense, which may obscure small masses. Analyzed By CAD. Overall Assessment: Negative, BI-RAD 1 Management: Screening Mammogram of both breasts in 1 year. Electronically signed and approved by: Fredy Perez M.D.
== END | disposition home or self-care (01) ==
LOC: RADMAMWWP 14:31
PROVIDERS: ATTEND Obstetrics & Gynecology
DX: R92.8 Other abnormal and inconclusive findings on diagnostic imaging of breast (principal); Z78.0 Asymptomatic menopausal state; Z80.3 Family history of malignant neoplasm of breast; R92.332 Mammographic heterogeneous density, left breast
CPT/HCPCS: 77065; G0279; 77061

== ENCOUNTER 2024-12-18 12:06 | Outpatient (CLI) | payer MEDICARE ==
[~2024-12-18 12:06] MED LIST changes: -ALPRAZolam 0.25 MG TAB PO PRN; -ALPRAZolam 0.5 MG TAB PO PRN; -ASPIRIN 325 MG TAB PO STA; -HEPARIN SODIUM,PORCINE (1 ML) 2,500 UNIT in SODIUM CHLORIDE 0.9% 250 ML IRRIGATION PRN; -HEPARIN SODIUM,PORCINE 10,000 UNIT in SODIUM CHLORIDE 0.9% 1,000 ML IRRIGATION PRN; -NITROGLYCERIN SL TABS 0.4 MG TAB SUBLINGUAL PRN; +SODIUM CHLORIDE 0.9% 250 ML in EMPTY BAG 1 BAG IV PRN
[2024-12-18 12:44] VITALS: BP 117/74; PULSE 59; RESP 16; TEMP 98.2
[2024-12-18] MEDS: ZOLEDRONIC ACID 5 MG in SODIUM CHLORIDE 0.9% 100 ML IV NR (12:46)
[2024-12-18] MEDS: SODIUM CHLORIDE 0.9% 500 ML 500 ML in EMPTY BAG 1 BAG IV PRN (12:50)
== END 2024-12-18 14:13 | disposition home or self-care (01) ==
LOC: PROCWHC3 12:06
PROVIDERS: ATTEND Internal Medicine Rheumatology
DX: M81.0 Age-related osteoporosis without current pathological fracture (principal)
CPT/HCPCS: 96365; J3489

== ENCOUNTER 2025-03-12 13:17 | Emergency (ER) | payer MEDICARE ==
[2025-03-12 13:29] VITALS: TEMP 97.9
--- NOTE | 2025-03-12 15:07 | XR ---
EXAMINATION TYPE: XR chest 2V DATE OF EXAM: 03/12/2025 2:57 PM COMPARISON: 10/19/2023 CLINICAL INDICATION: Female, 74 years old with history of difficulty breathing, TECHNIQUE: XR chest 2V view(s) obtained. FINDINGS: The heart size is normal. The pulmonary vasculature is normal. The lungs are clear. IMPRESSION: 1. No acute pulmonary process. [facility], , 03/12/2025 3:05 PM
[2025-03-12 15:09] LABS: HCT 39.2 % (37.2-46.3); HGB 13.1 g/dL (12.0-15.0); MCH 30.1 pg (27.0-32.0); MCHC 33.4 g/dL (32.0-37.0); MCV 90.1 fL (80.0-97.0); Platelet Count 224 10*3/uL (140-440); RBC 4.35 10*6/uL (4.10-5.20); RDW 12.9 % (11.5-14.5); WBC 5.73 10*3/uL (4.50-10.00)
[2025-03-12 15:10] LABS: Basophils # (A) 0.07 10*3/uL (0.00-0.10); Basophils % (A) 1.2 %; Eosinophils # (A) 0.14 10*3/uL (0.04-0.35); Eosinophils % (A) 2.4 %; Lymphocytes % (A) 20.9 %; Mean Platelet Volume 10.5 fL (9.5-12.2); Monocytes # (A) 0.57 10*3/uL (0.20-1.00); Monocytes % (A) 9.9 %; Neutrophils # (A) 3.74 10*3/uL (1.80-7.70); Neutrophils % (A) 65.4 %
[2025-03-12 15:41] LABS: INR 0.9 (<1.2); Partial Thromboplastin Time 22.8 sec (22.0-30.0); Prothrombin Time 9.8 sec (10.0-12.5)
[2025-03-12 15:49] LABS: ALT 28 U/L (4-34); AST 37 U/L (14-36); African American GFR (CKD) >90 (>60 ml/min/1.73 sqM); Albumin 4.5 g/dL (3.5-5.0); Alkaline Phosphatase 76 U/L (38-126); Anion Gap 8 mmol/L; Blood Urea Nitrogen 16 mg/dL (7-17); Calcium 9.7 mg/dL (8.4-10.2); Carbon Dioxide 22 mmol/L (22-30); Chloride 109 mmol/L (98-107); Glucose 96 mg/dL (74-99); Non-African American GFR(CKD) 81 (>60 ml/min/1.73 sqM); Potassium 4.8 mmol/L (3.5-5.1); Sodium 139 mmol/L (137-145); Total Bilirubin 1.6 mg/dL (0.2-1.3); Total Protein 6.9 g/dL (6.3-8.2)
--- NOTE | 2025-03-12 17:01 | ED ---
General Adult HPI - General Chief complaint: Shortness of Breath Stated complaint: Chest pain,SOB Time Seen by Provider: 03/12/25 16:23 Source: patient Mode of arrival: ambulatory Limitations: no limitations - History of Present Illness Initial comments: Dictation was produced using [employer] dictation software. please excuse any grammatical, word or spelling errors. Chief Complaint: 74-year-old female with chest pain shortness of breath History of Present Illness: Patient is 74-year-old female with a past medical history of COPD hypertension and thyroid disease. States that for the last couple days she has been having what she describes as chest pain. States that the pain is in her right shoulder. States that there is a paresthesia-like sensation to her anterior chest that radiates into her lower jaw. Denies any symptoms currently to bedside. Patient has no cardiac disease. She does see cardiology for this. Denies any substernal chest pain or anterior chest pain. The ROS documented in this emergency department record has been reviewed and confirmed by me. Those systems with pertinent positive or negative responses have been documented in the HPI. All other systems are other negative and/or noncontributory. - Related Data Home Medications Medication Instructions Recorded Confirmed Ascorbic Acid [Vitamin C] 500 mg PO DAILY 06/05/18 12/18/24 Calcium Carbonate/Vitamin D3 1 tab PO BID 06/05/18 12/18/24 [Calcium 600-Vit D3 5 Mcg (200 Iu)] Cholecalciferol [Vitamin D3 (10 1,000 unit PO DAILY 06/05/18 12/18/24 Mcg = 400 Iu)] Cyanocobalamin (Vitamin B-12) 500 mcg PO DAILY 06/05/18 12/18/24 [Vitamin B-12] Levothyroxine Sodium [Synthroid] 125 mcg PO HS 06/05/18 12/18/24 Magnesium Gluconate [Magonate] 500 mg PO DAILY 06/05/18 12/18/24 Raloxifene [Evista] 60 mg PO W/SUPPER 06/05/18 12/18/24 Vitamin B Complex 1 cap PO DAILY 06/05/18 12/18/24 Aspirin [Radley Aspirin EC] 81 mg PO DAILY 01/16/19 12/18/24 Biotin 5 mg PO DAILY 10/01/19 12/18/24 Folic Acid 0.4 mg PO DAILY 10/01/19 12/18/24 Glucosamine Sulfate 1,500 mg PO DAILY 10/01/19 12/18/24 carvediloL [Coreg] 3.125 mg PO BID-W/MEALS 10/01/19 12/18/24 Esomeprazole Magnesium [NexIUM] 20 mg PO DAILY 06/11/22 12/18/24 Losartan [Cozaar] 25 mg PO DAILY 12/06/23 12/18/24 Atorvastatin [Lipitor] 20 mg PO DAILY 03/16/24 12/18/24 [place]-3/Dha/Epa/Fish Oil [Fish Oil 1 each PO DAILY 03/16/24 12/18/24 1,000 mg Softgel] Allergies Allergy/AdvReac Type Severity Reaction Status Date / Time ceftriaxone [From Rocephin] Allergy Rash/Hives Verified 03/12/25 13:29 cephalexin [From Keflex] Allergy Rash/Hives Verified 03/12/25 13:29 levofloxacin Allergy Rash/Hives Verified 03/12/25 13:29 nitrofurantoin Allergy Itching Verified 03/12/25 13:29 [From Macrobid] sulfamethoxazole Allergy Itching Verified 03/12/25 13:29 [From Bactrim] trimethoprim [From Bactrim] Allergy Itching Verified 03/12/25 13:29 Review of Systems ROS Statement: Those systems with pertinent positive or pertinent negative responses have been documented in the HPI. ROS Other: All systems not noted in ROS Statement are negative. Past Medical History Past Medical History: COPD, GERD/Reflux, Hypertension, Osteoarthritis (OA), Sleep Apnea/CPAP/BIPAP, Thyroid Disorder Additional Past Medical History / Comment(s): Chrons with ileostomy. CPAP. OSTEOPENIA. History of Any Multi-Drug Resistant Organisms: None Reported Past Surgical History: Orthopedic Surgery, Tonsillectomy Additional Past Surgical History / Comment(s): ilestomy, wrist surgery. D & C. LEFT HIP SOCKET REPLACEMENT. Past Anesthesia/Blood Transfusion Reactions: No Reported Reaction Past Psychological History: No Psychological Hx Reported Smoking Status: Never smoker Past Alcohol Use History: None Reported Past Drug Use History: None Reported General Exam - General Exam Comments Initial Comments: PHYSICAL EXAM: General Impression: Alert and oriented x3, not in acute distress HEENT: Normocephalic atraumatic, extra-ocular movements intact, pupils equal and reactive to light bilaterally, mucous membranes moist. Cardiovascular: Heart regular rate and rhythm Chest: Able to complete full sentences, no retractions, no tachypnea Abdomen: abdomen soft, non-tender, non-distended, no organomegaly Musculoskeletal: Pulses present and equal in all extremities, no peripheral edema Motor: no focal deficits noted Neurological: CN II-XII grossly intact, no focal motor or sensory deficits noted Skin: Intact with no visualized rashes Psych: Normal affect and mood Limitations: no limitations Course Vital Signs 03/12/25 03/12/25 13:27 17:06 Temperature 97.9 F Pulse Rate 76 78 Respiratory 24 20 Rate Blood Pressure 135/82 138/78 O2 Sat by Pulse 97 94 L Oximetry EKG Findings - EKG Comments: EKG Findings:: My EKG interpretation: Ventricular rate 71, sinus rhythm, SD 137, QRS 81, QTc 393. No SD prolongation, no QTC prolongation, no ST or T-wave changes noted. Overall, this EKG is unremarkable Medical Decision Making - Medical Decision Making Was pt. sent in by a medical professional or institution (, PA, HAND SPRING REPAIRER HELPER, urgent care, hospital, or [facility]...) When possible be specific @ -No Did you speak to anyone other than the patient for history (EMS, parent, family, police, friend...)? What history was obtained from this source @ -No Did you review nursing and triage notes (agree or disagree)? Why? @ -I reviewed and agree with nursing and triage notes Were old charts reviewed (outside hosp., previous admission, EMS record, old EKG, old radiological studies, urgent care reports/EKG's, [facility] records)? Report findings @ -No old charts were reviewed Differential Diagnosis (chest pain, altered mental status, abdominal pain women, abdominal pain men, vaginal bleeding, musculoskeletal, weakness, fever, dyspnea, syncope, headache, dizziness, GI bleed, back pain, seizure, CVA, palpatations, mental health)? @ -Differential Chest Pain: Stable Angina, Unstable Angina, STEMI, NSTEMI Aortic Dissection, Pneumothorax, Musculoskeletal, Esophageal Spasm GERD, Cholecystitis, Pancreatitis, Zoster, this is not meant to be an all-inclusive list. EKG interpreted by me (3pts min.). @ -See above X-rays interpreted by me (1pt min.). @ -Chest x-ray is nonacute CT interpreted by me (1pt min.). @ -None done U/S interpreted by me (1pt. min.). @ -None done What testing was considered but not performed or refused? (CT, X-rays, U/S, labs)? Why? @ -None What meds were considered but not given or refused? Why? @ -None Was smoking cessation discussed for >3mins.? @ -No Were there social determinants of health that impacted care today? How? (Ho melessness, low income, unemployed, alcoholism, drug addiction, transportation, low edu. Level, literacy, decrease access to med. care, longterm, rehab)? @ -No Was there de-escalation of care discussed even if they declined (Discuss DNR or withdrawal of care, Hospice)? DNR status @ -No What co-morbidities impacted this encounter? (DM, HTN, Smoking, COPD, CAD, Cancer, CVA, ARF, Chemo, Hep., AIDS, mental health diagnosis, sleep apnea, morbid obesity)? @ -None Was patient admitted / discharged? Hospital course, mention meds given and route, prescriptions, significant lab abnormalities, going to OR and other pertinent info. @ -74-year-old female with atypical chest symptoms. She does have some risk factors. Vital signs are stable. Laboratory evaluation is unremarkable including serial troponins. Chest x-ray nonacute. Reevaluated bedside 6:45 PM found to be stable to condition. Given aspirin discharged told to follow-up with primary care doctor and/or falsework builder for outpatient stress test Did you discuss the management of the patient with other professionals (professionals i.e. , PA, HAND SPRING REPAIRER HELPER, lab, RT, psych nurse, social services counselor, chief meteorologist, teacher, digital controls technical officer, case work aide)? Give summary @ -No Was critical care preformed (if so, how long)? @ -No Undiagnosed new problem with uncertain prognosis? @ -No Drug Therapy requiring intensive monitoring for toxicity (Heparin, Nitro, Insulin, Cardizem)? @ -No Were any procedures done? @ -No Diagnosis/symptom? Acute, or Chronic, or Acute on Chronic? Uncomplicated (without systemic symptoms) or Complicated (systemic symptoms)? @ -Chest symptoms Side effects of treatment? @ -No Exacerbation, Progression, or Severe Exacerbation? @ -No Poses a threat to life or bodily function? How? (Chest pain, [place], [place], pneumonia, PE, COPD, DKA, ARF, appy, cholecystitis, CVA, Diverticulitis, Homicidal, Suicidal, threat to staff... and all critical care pts) @ -No - Lab Data Result diagrams: 03/12/25 14:44 03/12/25 14:44 Lab Results 03/12/25 03/12/25 03/12/25 Range/Units 14:44 14:44 14:44 WBC 5.73 (4.50-10.00) 10*3/uL RBC 4.35 (4.10-5.20) 10*6/uL Hgb 13.1 (12.0-15.0) g/dL Hct 39.2 (37.2-46.3) % MCV 90.1 (80.0-97.0) fL MCH 30.1 (27.0-32.0) pg MCHC 33.4 (32.0-37.0) g/dL Plt Count 224 (140-440) 10*3/uL MPV 10.5 (9.5-12.2) fL Immature Gran % (Auto) 0.2 % Neutrophils % 65.4 % Lymphocytes % 20.9 % Monocytes % 9.9 % Eosinophils % 2.4 % Basophils % 1.2 % Immature Gran # 0.01 (0.00-0.04) 10*3/uL Neutrophils # 3.74 (1.80-7.70) 10*3/uL Lymphocytes # 1.20 (0.90-5.00) 10*3/uL Monocytes # 0.57 (0.20-1.00) 10*3/uL Eosinophils # 0.14 (0.04-0.35) 10*3/uL Basophils # 0.07 (0.00-0.10) 10*3/uL PT 9.8 L (10.0-12.5) sec INR 0.9 (<1.2) APTT 22.8 (22.0-30.0) sec D-Dimer 0.49 (<0.60) mg/L FEU Sodium 139 (137-145) mmol/L Potassium 4.8 (3.5-5.1) mmol/L Chloride 109 H (98-107) mmol/L Carbon Dioxide 22 (22-30) mmol/L Anion Gap 8 mmol/L BUN 16 (7-17) mg/dL Creatinine 0.74 (0.52-1.04) mg/dL Est GFR (CKD-EPI)AfAm >90 (>60 ml/min/1.73 sqM) Est GFR (CKD-EPI)NonAf 81 (>60 ml/min/1.73 sqM) Glucose 96 (74-99) mg/dL Plasma Lactic Acid Artie (0.7-2.0) mmol/L Calcium 9.7 (8.4-10.2) mg/dL Total Bilirubin 1.6 H (0.2-1.3) mg/dL AST 37 H (14-36) U/L ALT 28 (4-34) U/L Alkaline Phosphatase 76 (38-126) U/L Troponin I (0.000-0.034) ng/mL Total Protein 6.9 (6.3-8.2) g/dL Albumin 4.5 (3.5-5.0) g/dL 03/12/25 03/12/25 03/12/25 Range/Units 14:44 14:44 17:50 WBC (4.50-10.00) 10*3/uL RBC (4.10-5.20) 10*6/uL Hgb (12.0-15.0) g/dL Hct (37.2-46.3) % MCV (80.0-97.0) fL MCH (27.0-32.0) pg MCHC (32.0-37.0) g/dL Plt Count (140-440) 10*3/uL MPV (9.5-12.2) fL Immature Gran % (Auto) % Neutrophils % % Lymphocytes % % Monocytes % % Eosinophils % % Basophils % % Immature Gran # (0.00-0.04) 10*3/uL Neutrophils # (1.80-7.70) 10*3/uL Lymphocytes # (0.90-5.00) 10*3/uL Monocytes # (0.20-1.00) 10*3/uL Eosinophils # (0.04-0.35) 10*3/uL Basophils # (0.00-0.10) 10*3/uL PT (10.0-12.5) sec INR (<1.2) APTT (22.0-30.0) sec D-Dimer (<0.60) mg/L FEU Sodium (137-145) mmol/L Potassium (3.5-5.1) mmol/L Chloride (98-107) mmol/L Carbon Dioxide (22-30) mmol/L Anion Gap mmol/L BUN (7-17) mg/dL Creatinine (0.52-1.04) mg/dL Est GFR (CKD-EPI)AfAm (>60 ml/min/1.73 sqM) Est GFR (CKD-EPI)NonAf (>60 ml/min/1.73 sqM) Glucose (74-99) mg/dL Plasma Lactic Acid Artie 0.7 (0.7-2.0) mmol/L Calcium (8.4-10.2) mg/dL Total Bilirubin (0.2-1.3) mg/dL AST (14-36) U/L ALT (4-34) U/L Alkaline Phosphatase (38-126) U/L Troponin I <0.012 <0.012 (0.000-0.034) ng/mL Total Protein (6.3-8.2) g/dL Albumin (3.5-5.0) g/dL Disposition Clinical Impression: Chest pain Disposition: HOME SELF-CARE Condition: Fair Instructions (If sedation given, give patient instructions): Chest Pain (ED) Additional Instructions: Follow-up with primary care doctor or cardiology for outpatient stress test. Return to the emergency department should you have any worsening cardiac symptoms. Is patient prescribed a controlled substance at d/c from ED?: No Referrals: Nena Gonzalez MD [Primary Care Provider] - 1-2 days Time of Disposition: 18:44
[2025-03-12 17:08] VITALS: RESP 20
[2025-03-12] MEDS: ASPIRIN 81 MG PO STA (18:45)
[2025-03-12 18:48] VITALS: BP 140/77; PULSE 70
== END 2025-03-12 18:58 | disposition home or self-care (01) ==
LOC: EC 13:17
DX: R07.89 Other chest pain (principal); Z88.1 Allergy status to other antibiotic agents; Z88.2 Allergy status to sulfonamides; Z88.8 Allergy status to other drugs, medicaments and biological substances
CPT/HCPCS: 36415; 71046; 80053; 83605; 84484; 85025; 85379; 85610; 85730; 93005; 99285